=== PATIENT | female | born 1945 | race Caucasian/White ===

== ENCOUNTER 2016-03-12 11:57 | Outpatient (CLI) | payer MEDICARE, OTHER | END 2016-03-12 11:58 | disposition home or self-care (01) | DX: M19.072 Primary osteoarthritis, left ankle and foot (principal); M79.672 Pain in left foot ==

== ENCOUNTER 2016-06-15 20:54 | Outpatient (CLI) | payer MEDICARE, OTHER | END 2016-06-15 20:55 | disposition critical access hospital (66) | DX: M54.5 Low back pain (principal); S91.311A Laceration without foreign body, right foot, initial encounter; W01.198A Fall on same level from slipping, tripping and stumbling with subsequent striking against other object, initial encounter; Y92.018 Other place in single-family (private) house as the place of occurrence of the external cause | CPT/HCPCS: A0425; A0429 ==

== ENCOUNTER 2016-06-15 21:13 | Emergency (ER) | payer MEDICARE, OTHER ==
[2016-06-15] MEDS ORDERED: LIDOCAINE PATCH 5% TOP STA (23:20)
[2016-06-15] MEDS ORDERED: LIDOCAINE PATCH 5% TOP ONE (23:22)
== END 2016-06-15 23:32 | disposition home or self-care (01) ==
DX: S33.5XXA Sprain of ligaments of lumbar spine, initial encounter (principal); S90.811A Abrasion, right foot, initial encounter; W01.0XXA Fall on same level from slipping, tripping and stumbling without subsequent striking against object, initial encounter; M21.372 Foot drop, left foot; M41.86 Other forms of scoliosis, lumbar region; I10 Essential (primary) hypertension; E11.9 Type 2 diabetes mellitus without complications; Z79.4 Long term (current) use of insulin; E03.9 Hypothyroidism, unspecified; Z79.82 Long term (current) use of aspirin; Z87.891 Personal history of nicotine dependence
CPT/HCPCS: 72100; 72190; 99283; 99284; A9270

== ENCOUNTER 2016-07-04 15:03 | Outpatient (CLI) | payer MEDICARE, OTHER ==
--- NOTE | 2016-07-05 11:31 | Ultrasound Report ---
AORTA SCREEN: 07/04/2016 CLINICAL INDICATION: Hypertension. TECHNIQUE: Real-time scanning was performed with new accounts representative static images obtained. FINDINGS: The abdominal aorta is normal in caliber, measuring 2.5 cm proximally, 2.0 cm in the mid p ortion, and 1.9 cm distally. The iliacs are normal in caliber. No free fluid is present. IMPRESSION: NO EVIDENCE OF ABDOMINAL AORTIC ANEURYSM. :9 JOB #: [id number] EXT JOB #:[id number]
== END 2016-07-04 15:04 | disposition home or self-care (01) ==
LOC: DI 15:03
PROVIDERS: ATTEND Internal Medicine
DX: I10 Essential (primary) hypertension (principal)
CPT/HCPCS: 76706

== ENCOUNTER 2017-03-24 15:03 | Outpatient (CLI) | payer MEDICARE, OTHER ==
--- NOTE | 2017-03-26 13:13 | DEXA Report ---
DEXA: 03/24/2017 CLINICAL INDICATION: Postmenopausal. TECHNIQUE: Dual energy x-ray absorptiometry (DXA) was performed on a [employer] system. Regions measured are the AP spine, femoral neck, and, if needed, forearm. COMPARISON: None. In accordance with the International Society for Clinical Densitometry (ISCD) guidelines, data from previous exams may be reanalyzed using current recommendations and techniques. This is done to allow a more accurate basis for comparison with the current study. FINDINGS SPINE: N/A HIP: N/A FOREARM - The data for the left forearm radius is as follows: REGION BMD (g/cm/cm) T-SCORE Z-SCORE 1/3 RADIUS 0.875 0.0 2.0 NOTE: The 33% radius of the nondominant forearm is used for classification. IMPRESSION 1. THE WHO CLASSIFICATION BASED ON THE INTERNATIONAL REFERENCE STANDARD IS NORMAL. THE FRACTURE RISK IS NOT INCREASED. 2. LUMBAR SPINE EVALUATION NOT PERFORMED DUE TO PREVIOUS LUMBAR SURGERY. THE PATIENT COULD NOT TOLERATE POSITIONING FOR LEFT HIP EVALUATION. RECOMMENDATION: Patients with diagnosis of osteoporosis or osteopenia should have regular bone mineral density assessment. For those eligible for Medicare, routine testing is allowed once every 2 years. Testing frequency can be increased for patients who have rapidly progressing disease or for those who are receiving medical therapy to restore bone mass. COMMENT: World Health Organization (WHO) definitions for osteoporosis and osteopenia: NORMAL BMD: T-score at 1.0 or higher, fracture risk is low. OSTEOPENIA BMD: T-score between 1.0 and -2.5, fracture risk is increased. OSTEOPOROSIS BMD: T-score at 2.5 or lower, fracture risk high. National Osteoporosis Foundation recommends: 1. Obtain adequate dietary calcium (at least 1200 mg per day) and vitamin D (400 -800 international units per day). 2. Participate, as appropriate, in regular weightbearing and muscle- strengthening exercise. 3. Avoid tobacco use and reduce alcohol and caffeine intake. 4. For more detailed information see the website at www.NOF.org. TD: 03/25/2017 17:57 JOHN
== END 2017-03-24 15:04 | disposition home or self-care (01) ==
LOC: DI 15:03
PROVIDERS: ATTEND Internal Medicine
DX: M81.0 Age-related osteoporosis without current pathological fracture (principal)
CPT/HCPCS: 77080; 77081

== ENCOUNTER 2017-04-09 09:02 | Outpatient (CLI) | payer MEDICARE, OTHER ==
--- NOTE | 2017-04-09 12:52 | XRAY Report ---
THREE VIEW LEFT ANKLE: 04/09/2017 CLINICAL INDICATION: Arthralgia. FINDINGS: AP, lateral, oblique views of the left ankle demonstrate severe degenerative changes of the talonavicular joint, with bulky osteophytes dorsally. Milder degenerative changes are seen in the ankle mortise, and plantar calcaneal spurring is present. There is no evidence of acute fracture. Soft tissue swelling is present. IMPRESSION: SEVERE OSTEOARTHRITIS OF THE TALONAVICULAR JOINT, WITH BULKY OSTEOPHYTES. TD: 04/09/2017 12:51
== END 2017-04-09 09:03 | disposition home or self-care (01) ==
LOC: DI.N 09:02
PROVIDERS: ATTEND Internal Medicine
DX: M19.072 Primary osteoarthritis, left ankle and foot (principal)

== ENCOUNTER 2018-03-27 08:17 | Outpatient (CLI) | payer MEDICARE, OTHER ==
--- NOTE | 2018-03-27 11:43 | Ultrasound Report ---
Reason: UMBILICAL HERNIA WITH OBSTRUCTION Procedure Date: 03/27/2018 Accession Number: [id number] / [id number] Procedure: US - Abdomen Limited CPT Code: FULL RESULT: EXAM: ABDOMEN ULTRASOUND LIMITED EXAM DATE: 03/27/2018 09:53 AM. CLINICAL HISTORY: Umbilical hernia with obstruction. COMPARISON: Abdomen limited 12/27/2016 7:33 AM. TECHNIQUE: Real-time scanning was performed with static images obtained. FINDINGS: Limited soft tissue ultrasound of the umbilical area demonstrates an umbilical hernia with a 3 x 4 cm neck which intermittently contains bowel when the patient is seated. The hernia cannot be fully reduced during the examination. IMPRESSION: Umbilical hernia as described. RADIA
== END 2018-03-27 08:18 | disposition home or self-care (01) ==
LOC: DI 08:17
PROVIDERS: ATTEND Internal Medicine
DX: K42.0 Umbilical hernia with obstruction, without gangrene (principal)
CPT/HCPCS: 76705

== ENCOUNTER 2018-04-21 08:00 | Day surgery (SDC) | payer MEDICARE, OTHER ==
[~2018-04-21 08:00] MED LIST: BUPIVACAINE 0.5% PF 30 ML VIAL ONE
--- NOTE | 2018-04-21 08:24 | ANESTHESIA ---
Pre-Anesthesia VS, & Labs - Diagnosis Large umbilical hernia - Procedure umbilical hernia repair Height 5 ft 2 in Body Mass Index 46.7 - NPO >8 hours - Is Patient ?: No - Lab Results Lab results reviewed: Yes Home Medications and Allergies Active Medications Cefazolin Sodium 3 gm/ Sodium (Chloride) 100 mls @ 200 mls/hr IV ONCE ONE Stop: 04/21/18 09:29 Levothyroxine Sodium [Synthroid] 200 mcg PO DAILY 07/10/12 Lisinopril 20 mg PO DAILY 07/10/12 Aspirin [Rosalinda] 81 mg PO DAILY 08/24/14 Cholecalciferol (Vitamin D3) [Vitamin D] 1 cap PO DAILY 08/24/14 Furosemide 20 mg PO DAILY 08/24/14 Gabapentin 300 mg PO TID 08/24/14 Omeprazole 10 mg PO DAILY 08/24/14 Sertraline HCl [Zoloft] 50 mg PO DAILY 08/24/14 metFORMIN [Glucophage] 500 mg PO TID 08/24/14 Calcium Carbonate [Calcium] 600 mg PO QDBREAKFAST 12/16/14 Insulin Glargine,Hum.rec.anlog [Lantus] 95 unit SQ QPM 12/16/14 Ibandronate Sodium [Boniva] 150 mg PO Q30D 12/04/16 Carbidopa/Levodopa [Carbidopa-Levodopa 10-100 Tab] 1 tab ORAL TID 12/10/17 Hydrochlorothiazide 12.5 mg PO DAILY 12/10/17 Simvastatin 20 mg PO DAILY 12/10/17 diltiaZEM [Cardizem] 30 mg PO DAILY 12/10/17 Allergies/Adverse Reactions: Allergies Allergy/AdvReac Type Severity Reaction Status Date / Time No Known Drug Allergies Allergy Verified 06/15/16 21:17 Anes History & Medical History - Anesthetic History Anesthesia Complications: reports: No previous complications Family history of Anesthesia Complications: Denies Family history of Malignant Hyperthermia: Denies - Medical History Cardiovascular: reports: Hypertension, High cholesterol, Other Pulmonary: reports: Sleep apnea, CPAP use Gastrointestinal: reports: GERD Urinary: reports: None Musculoskeletal: reports: Osteoarthritis, Scoliosis, Chronic back pain, Other (hx Poilo at 6 years old) Endocrine/Autoimmune: reports: Type 2 diabetes, HyPOthyroidism Blood Disorders: reports: Anemia Skin: reports: None Smoking Status: Former smoker Other Past Medical History: polio@6 years - Surgical History General: Cholecystectomy Exam General: Alert, Oriented x3, Cooperative Dental: WNL Mouth Openin Fingerbreadth Neck Mobility: Normal Mallampati classification: II Thyromental Distance: 4-6 cm Respiratory: Lungs clear, Normal breath sounds Cardiovascular: Regular rate Neurological: Normal speech Mental/Cognitive Status: Alert/Oriented X3, Normal for patient Plan Anesthesia Type: General Consent for Procedure(s) Verified and Reviewed: Yes Code Status: Attempt Resuscitation ASA classification: 3-Severe systemic disease Is this case an emergency?: No
[2018-04-21] MEDS ORDERED: NEOSTIGMINE 1 MG/1 ML 10 ML MDV IVP ONE (08:30)
[2018-04-21] MEDS ORDERED: fentaNYL 100 MCG/2 ML VIAL IVP ONE (08:30)
[2018-04-21] MEDS ORDERED: MIDAZOLAM 2 MG/2 ML VIAL IVP ONE (08:30)
[2018-04-21] MEDS ORDERED: ROCURONIUM 50 MG/5 ML VIAL IVP ONE (08:30)
[2018-04-21] MEDS ORDERED: GLYCOPYRROLATE 1 MG/5 ML VIAL IVP ONE (08:30)
[2018-04-21] MEDS ORDERED: DEXAMETHASONE 4 MG/ML VIAL IVP ONE (08:30)
[2018-04-21] MEDS ORDERED: LIDOCAINE 2% 50 ML MDV IV ONE (08:30)
[2018-04-21] MEDS ORDERED: PROPOFOL 200 MG/20 ML VIAL IVP ONE (08:30)
[2018-04-21] MEDS ORDERED: ONDANSETRON 4 MG/2 ML VIAL IVP ONE (08:30)
[2018-04-21] MEDS ORDERED: LACTATED RINGERS 1,000 ML IV ONE ×2 (08:41→10:21)
[2018-04-21] MEDS ORDERED: ceFAZolin 3 GM in SODIUM CHLORIDE 0.9% 100ML 100 ML IV ONE (09:00)
[2018-04-21] MEDS ORDERED: BUPIVACAINE 0.5% PF 30 ML VIAL INFIL ONE ×2 (09:52→10:22)
[2018-04-21] MEDS ORDERED: HYDROcod/ACETAM 5/325 MG TABLET PO PRN (10:44)
[2018-04-21] MEDS ORDERED: HYDROmorphone 0.5 MG/0.5 ML SYRINGE IVP PRN (10:44)
[2018-04-21] MEDS ORDERED: ONDANSETRON 4 MG/2 ML VIAL IVP PRN (10:44)
--- NOTE | 2018-04-21 10:59 | OPERATIVE REPORT ---
Operative Report - General Procedure Date: 04/21/18 Planned Procedure: Incarcerated umbilical herniorrhaphy Pre-Op Diagnosis: Incarcerated umbilical hernia Procedure Performed: Incarcerated umbilical herniorrhaphy with mesh with partial omentectomy Post Op Diagnosis: Incarcerated umbilical hernia - Procedure Note Primary Surgeon: Ifeanyi Mcpherson MD Anesthesia Provider: Larry Welsh CRNA Anesthesia Technique: General ET tube, Local (30 mL of half percent Marcaine) IV Fluids (mL): 700 Estimated Blood Loss (mL): 5 Drain/Tube Type: Other (None.) Complications: None. - Other Other Information/Narrative: OPERATIVE DESCRIPTION/REPORT: After verbal and written informed consent was obtained detailing the risks of infection, bleeding requiring transfusion with its risks, nerve injury, and , and after I met with the patient confirming the surgery and the site of the surgery, the patient was brought to the operative suite and placed supine on the operating table. Great care was taken to avoid pressure points to prevent pressure necrosis or nerve injury. Monitoring devices were applied along with TEDs and pneumatic compressive stockings (to prevent DVT). The patient received preoperative antibiotics for surgical prophylaxis. Larry Welsh CRNA sedated and anesthetized the patient for the entire procedure. The patient was prepped and draped in the usual sterile manner. With the patient draped my initials were clearly visible. A "time in" then confirmed that the patient was identified with 3 identifiers (name, date and medical record number), the history and physical was in the chart, the signed consent confirming the procedure was in the chart, the patient was in the correct position, the aforementioned prophylactic measures were in place or given, we had the correct personnel and equipment to complete the procedure and that anesthesia, surgery and nursing were given an opportunuty to express any concerns. With the agreement of everyone in the room, we proceeded with the operation. A transverse umbilical incision was made and dissection was carried down to the hernia sac using a scalpel and Metzenbaum scissors. The sac was cleared of overlying adherent tissue, and the fascial defect was delineated. The sac itself was quite large and filled with what appeared to be omentum. It was clear that the defect which was a size of an Martiniquais silver dollar would not allow for easy placement of the omentum back into the abdomen. As such, I incised the hernia sac and performed a partial omentectomy using serial application of the LigaSure. The omentum was sent for pathologic evaluation. The fascia was cleared of any adherent tissue for a distance 1.5 cm from the defect. The defect was closed using a 12 cm in diameter piece of Covidien p bo Palmer mesh (Lot# [id number], Ref# [id number], use by date 2022-04-23). This mesh was selected as it was coated and allowed for the greatest overlap of mesh onto normal tissue. This was secured to the fascia using interrupted 0 PDS sutures circumferentially. The fascia was then secured over the mesh using two 0 PDS sutures in a [id number] fashion to allow for greater contact of the patient's tissues with the mesh. The patient was then given an ``innie by suturing the back of the umbilicus to the fascia using a 2-0 Vicryl. Meticulous hemostasis was obtained using Bovie electrocautery. The skin incision was approximated with a running subcuticular 4-0 Monocryl. After the prep was washed off, benzoin and steristrips were applied. A dressing was then applied. At this point a time out was performed that confirmed that all the counts were correct, the procedure that was performed, the blood loss, the IV fluids administered, and the patients condition. Having tolerated the procedure well, the patient was subsequently taken to recovery room in good and stable condition. [employer] disclaimer: This document was created in part using voice recognition technology. Because of the inherent limitations of the system ([employer]'s [employer] user manual states that the licensee understands that speech recognition is a statistical process and that recognition errors are inherent in the process), occasional same sounding word substitutions and grammatical errors do occur and persist despite proofreading. Please read this document for context.
[2018-04-21] MEDS ORDERED: HYDROcod/ACETAM 5/325 MG TABLET ONE (11:56)
[2018-04-21] MEDS ORDERED: SODIUM CHLORIDE FLUSH 0.9% 10 ML SYRINGE ONE (11:56)
[2018-04-21 12:45] VITALS: BP 129/65
== END 2018-04-21 08:01 | disposition home or self-care (01) ==
LOC: SDS 08:00
PROVIDERS: ATTEND Surgery
PROC: 0WUF0JZ Supplement Abdominal Wall with Synthetic Substitute, Open Approach (ICD-10-PCS; principal; 2018-04-21 09:15)
DX: K42.1 Umbilical hernia with gangrene (principal); I11.0 Hypertensive heart disease with heart failure; I50.9 Heart failure, unspecified; E11.9 Type 2 diabetes mellitus without complications; Z79.4 Long term (current) use of insulin; E66.01 Morbid (severe) obesity due to excess calories; Z68.41 Body mass index [BMI] 40.0-44.9, adult; G47.30 Sleep apnea, unspecified; K21.9 Gastro-esophageal reflux disease without esophagitis; E78.00 Pure hypercholesterolemia, unspecified; G89.29 Other chronic pain; M54.9 Dorsalgia, unspecified; M19.90 Unspecified osteoarthritis, unspecified site; Z72.89 Other problems related to lifestyle; E03.9 Hypothyroidism, unspecified; D64.9 Anemia, unspecified; F32.9 Major depressive disorder, single episode, unspecified; Z87.891 Personal history of nicotine dependence; Z86.12 Personal history of poliomyelitis; I49.9 Cardiac arrhythmia, unspecified
CPT/HCPCS: 49587; A9270; C1781; J7120

== ENCOUNTER 2018-06-25 07:57 | Outpatient (CLI) | payer MEDICARE, OTHER ==
--- NOTE | 2018-06-25 11:30 | Mammography Report ---
Reason: ANNUAL SCREENING Procedure Date: 06/25/2018 Accession Number: [id number] / [id number] Procedure: OBDULIO - Screening Mammo Dig Bilat CPT Code: FULL RESULT: EXAM: Screening Mammo Dig Bilat DATE: 06/25/2018 8:46 AM CLINICAL HISTORY: Routine screening TECHNIQUE: (B) - Bilateral CC and MLO views were obtained. COMPARISON: 01/10/2016, 12/20/2014, 01/11/2013 and 08/13/2011. PARENCHYMAL PATTERN: (F) - The breasts demonstrate diffuse fatty replacement bilaterally. FINDINGS: There is no significant interval change. There are no suspicious masses, calcifications, or areas of distortion. IMPRESSION: Negative examination. BI-RADS category 1. RECOMMENDATION: (ANNUAL) - Recommend routine annual screening mammography. BI-RADS CATEGORY: (1) - Negative. STANDARD QUALIFYING STATEMENTS: 1. This examination was not reviewed with the aid of Computer-Aided Detection (CAD). 2. A negative or benign imaging report should not preclude biopsy if clinically suspicious findings are present. 3. Dense breasts may obscure an underlying neoplasm. 4. This examination was reviewed without the aid of 3D breast imaging (tomosynthesis).
== END 2018-06-25 07:58 | disposition home or self-care (01) ==
LOC: DI 07:57
PROVIDERS: ATTEND Internal Medicine
DX: Z12.31 Encounter for screening mammogram for malignant neoplasm of breast (principal)
CPT/HCPCS: 77067

== ENCOUNTER 2018-09-25 12:35 | Outpatient (CLI) | payer MEDICARE, OTHER | END 2018-09-25 12:36 | disposition critical access hospital (66) | LOC: EMS 12:35 | PROVIDERS: ATTEND Surgery | DX: M25.561 Pain in right knee (principal); R22.0 Localized swelling, mass and lump, head; W18.39XA Other fall on same level, initial encounter; Y92.009 Unspecified place in unspecified non-institutional (private) residence as the place of occurrence of the external cause | CPT/HCPCS: A0425; A0429 ==

== ENCOUNTER 2018-09-25 12:55 | Emergency (ER) | payer MEDICARE, OTHER ==
--- NOTE | 2018-09-25 13:00 | ED Physician Documentation ---
PD HPI Fall - Stated complaint Stated Complaint: GLF/ HIT HEAD - History obtained from History obtained from: Patient, EMS - History of Present Illness Mechanism of injury: Lost balance (she says she has had leg weakness for months, worsening, and today, lost balance trying to back up some with walker, fell back and struck head on wall or such, then forward and struck knee. EMS called as she could not get back up. She did weight bear to transfer to cart, per EMS.) Fall distance: Standing position Timing - onset: Today Injury(ies) location: Head, Right Lower Extremity (knee) Associated symptoms: No: LOC, AMS Worsens with: Palpation Contributing factors: No: Anticoagulated, Intoxicated Review of Systems Constitutional: denies: Fever Nose: denies: Rhinorrhea / runny nose, Congestion Throat: denies: Sore throat Cardiac: denies: Chest pain / pressure, Palpitations Respiratory: denies: Dyspnea, Cough GI: denies: Abdominal Pain, Nausea, Vomiting PD PAST MEDICAL HISTORY - Past Medical History Cardiovascular: Hypertension, High cholesterol, Other Respiratory: Sleep apnea, CPAP use Endocrine/Autoimmune: Type 2 diabetes, HyPOthyroidism GI: GERD : None HEENT: Chronic hearing loss Psych: Depression Musculoskeletal: Osteoarthritis, Scoliosis, Chronic back pain, Other (hx Poilo a t 6 years old) Derm: None - Past Surgical History Past Surgical History: Yes General: Cholecystectomy - Present Medications Home Medications: Ambulatory Orders Medication Instructions Recorded Confirmed Levothyroxine Sodium [Synthroid] 200 mcg PO DAILY 07/10/12 07/15/18 Lisinopril 20 mg PO DAILY 07/10/12 07/15/18 Aspirin [Rosalinda] 81 mg PO DAILY 08/24/14 07/15/18 Cholecalciferol (Vitamin D3) 1 cap PO DAILY 08/24/14 07/15/18 [Vitamin D] Furosemide 20 mg PO DAILY 08/24/14 07/15/18 Gabapentin 300 mg PO TID 08/24/14 07/15/18 Omeprazole 10 mg PO DAILY 08/24/14 07/15/18 Sertraline HCl [Zoloft] 50 mg PO DAILY 08/24/14 07/15/18 metFORMIN [Glucophage] 500 mg PO TID 08/24/14 07/15/18 Calcium Carbonate [Calcium] 600 mg PO QDBREAKFAST 12/16/14 07/15/18 Insulin Glargine,Hum.rec.anlog 95 unit SQ QPM 12/16/14 07/15/18 [Lantus] Ibandronate Sodium [Boniva] 150 mg PO Q30D 12/04/16 07/15/18 Carbidopa/Levodopa 1 tab ORAL TID 12/10/17 07/15/18 [Carbidopa-Levodopa 10-100 Tab] Hydrochlorothiazide 6.5 mg PO DAILY 12/10/17 07/15/18 Simvastatin 20 mg PO DAILY 12/10/17 07/15/18 diltiaZEM [Cardizem] 30 mg PO DAILY 12/10/17 07/15/18 Allopurinol 100 mg PO DAILY 07/15/18 07/15/18 Magnesium Oxide [Mag Ox] 400 mg PO DAILY #10 tablet 09/25/18 dexAMETHasone [Decadron] 4 mg PO DAILY #7 tablet 09/25/18 - Allergies Allergies/Adverse Reactions: Allergies Allergy/AdvReac Type Severity Reaction Status Date / Time No Known Drug Allergies Allergy Verified 06/15/16 21:17 - Social History Does the pt smoke?: No Smoking Status: Former smoker Does the pt drink ETOH?: No - Family History Family history: reports: Non contributory - Immunizations Immunizations are current?: Yes PD ED PE NORMAL - Vitals Vital signs reviewed: Yes - General General: Alert and oriented X 3, No acute distress, Well developed/nourished - HEENT HEENT: PERRL, EOMI, Other (back of head with mild swelling and tenderness. ) - Neck Neck: Supple, no meningeal sign, No bony TTP, No adenopathy - Cardiac Cardiac: RRR, No murmur - Respiratory Respiratory: Clear bilaterally - Abdomen Abdomen: Soft, Non tender - Back Back: No spinal TTP - Derm Derm: Normal color, Warm and dry - Extremities Extremities: Other (right knee anteriorly with some tenderness without deformity. No effusion. Extension with some pain; No noted laxity with stress testing. ) - Neuro Neuro: Alert and oriented X 3, No motor deficit, No sensory deficit, Normal speech Results - Vitals Vitals: Oxygen O2 Source Room air - Labs Labs: Laboratory Tests 09/25/18 09/25/18 09/25/18 13:55 13:55 13:55 WBC 9.3 RBC 3.50 L Hgb 10.4 L Hct 33.5 L MCV 95.7 MCH 29.7 MCHC 31.0 L RDW 14.5 Plt Count 231 MPV 9.7 Neut # (Auto) 6.1 Lymph # (Auto) 2.5 [place] # (Auto) 0.5 Eos # (Auto) 0.2 Baso # (Auto) 0.1 Absolute Nucleated RBC 0.00 Nucleated RBC % 0.0 ESR 140 H Sodium 141 Potassium 3.6 Chloride 101 Carbon Dioxide 28 Anion Gap 12.0 BUN 17 Creatinine 0.7 Estimated GFR (MDRD) 82 L Glucose 140 H Calcium 9.5 Magnesium 1.4 L Total Bilirubin 0.7 AST 28 ALT 27 Alkaline Phosphatase 53 Total Creatine Kinase 85 Total Protein 7.7 Albumin 3.7 Globulin 4.0 Albumin/Globulin Ratio 0.9 L Lipase 18 L - Rads (name of study) head CT Radiology: Prelim report reviewed (no ICH), EMP read contemporaneously, See rad report right knee Radiology: Prelim report reviewed (significant arthritis; no fractures), EMP read contemporaneously, See rad report PD MEDICAL DECISION MAKING - ED course Complexity details: considered differential (having feeling of weakness in legs. Has walker. Labs showing just low Mag. Consider effect of statins. ), d/w patient, d/w family Departure - Departure Disposition: 01 Home, Self Care Clinical Impression: Leg weakness, bilateral, Hypomagnesemia Fall from slip, trip, or stumble Qualifiers: Encounter type: initial encounter Qualified Code(s): W01.0XXA - Fall on same level from slipping, tripping and stumbling without subsequent striking against object, initial encounter Knee contusion Qualifiers: Encounter type: initial encounter Laterality: right Qualified Code(s): S80.01XA - Contusion of right knee, initial encounter Head contusion Qualifiers: Encounter type: initial encounter Contusion of head detail: scalp Qualified Code(s): S00.03XA - Contusion of scalp, initial encounter Condition: Stable Record reviewed to determine appropriate education?: Yes Instructions: ED Contusion Lower Ext, ED Weakness [facility] Follow-Up: Bruna Coelho MD [Primary Care Provider] - Prescriptions: dexAMETHasone [Decadron] 4 mg PO DAILY #7 tablet Magnesium Oxide [Mag Ox] 400 mg PO DAILY #10 tablet Comments: You are on a cholesterol medicine (simvastatin) and this can be associated with leg pains and weakness in a small percentage of people. I would suggest stopping your simvastatin for a month. You can use naproxen or ibuprofen for your knee pain. There is no fracture seen so it anticipated improving over the next few days to week. Add Tylenol if needed for more pain. Your blood tests do show a low magnesium level also take a supplement as prescribed in the short-term. Your inflammation marker on your blood test is elevated suggesting the may be some more immune related type inflammation going on and that may be adding to your feeling of weakness. Follow-up with your primary care regarding further evaluation of this. Meanwhile we can add a steroid type anti-inflammatory to see if that will help generally. This may cause your blood sugars to go higher and stop the steroid if your blood sugars are too high. Discharge Date/Time: 09/25/18 15:09
[2018-09-25] MEDS ORDERED: ACETAMINOPHEN 325 MG TABLET PO STA (13:01)
--- NOTE | 2018-09-25 13:51 | XRAY Report ---
Reason: fall and struck right knee directly Procedure Date: 09/25/2018 Accession Number: [id number] / [id number] Procedure: XR - Knee 3 View RT CPT Code: FULL RESULT: EXAM: RIGHT KNEE RADIOGRAPHY EXAM DATE: 09/25/2018 01:30 PM. CLINICAL HISTORY: Fall and struck right knee directly. COMPARISON: KNEE 3 VIEW RT 01/27/2015 3:14 PM. TECHNIQUE: 3 views. FINDINGS: Bones: There is moderate chronic spurring of the lateral and patellofemoral compartment. No acute fracture. Joints: There is mild medial compartment joint space narrowing. No joint effusion. Soft Tissues: Normal. No soft tissue swelling. IMPRESSION: 1. Chronic degenerative disease of the knee with medial compartment mild joint space narrowing and chronic spurring present in the lateral and patellofemoral compartment. No fracture or joint effusion. RADIA
--- NOTE | 2018-09-25 13:54 | CT Report ---
Reason: fall and struck head, no LOC Procedure Date: 09/25/2018 Accession Number: [id number] / [id number] Procedure: CT - HEAD WO CPT Code: FULL RESULT: EXAM: HEAD WO EXAM DATE: 09/25/2018 01:41 PM CLINICAL HISTORY: Fall and struck head, no loss of consciousness. COMPARISON: None. TECHNIQUE: Multiaxial CT images were obtained from the foramen magnum to the vertex. Reformats: Sagittal and coronal. IV contrast: None. In accordance with CT protocol optimization, one or more of the following dose reduction techniques were utilized for this exam: automated exposure control, adjustment of mA and/or KV based on patient size, or use of iterative reconstructive technique. FINDINGS: Parenchyma: No acute intraparenchymal hemorrhage. No evidence of mass, midline shift. Torrez-white differentiation is distinct. Extraaxial Spaces: Basal cisterns are preserved. No subdural or epidural collections identified. Ventricles: Normal in size and position. Sinuses and Orbits: Imaged paranasal sinuses, orbits, and mastoids show no significant abnormality. Bones: No evidence of fracture or calvarial defect. Other: None. IMPRESSION: No acute intracranial abnormality. RADIA
[2018-09-25 14:08] LABS: BASOPHILS # (AUTO) 0.1 10^3/uL (0.0-0.1); BASOPHILS % (AUTO) 0.8 %; EOSINOPHILS # (AUTO) 0.2 10^3/uL (0.0-0.7); EOSINOPHILS % (AUTO) 1.6 %; HGB - HEMOGLOBIN 10.4 g/dL (12.0-16.0); LYMPHOCYTES # (AUTO) 2.5 10^3/uL (1.5-3.5); LYMPHOCYTES % (AUTO) 26.8 %; MEAN CORPUSCULAR HEMOGLOBIN 29.7 pg (27.0-31.0); MEAN CORPUSCULAR VOLUME 95.7 fL (81.0-99.0); MEAN PLATELET VOLUME 9.7 fL (7.9-10.8); MONOCYTES # (AUTO) 0.5 10^3/uL (0.0-1.0); MONOCYTES % (AUTO) 5.3 %; NEUTROPHILS # (AUTO) 6.1 10^3/uL (1.5-6.6); NEUTROPHILS % (AUTO) 65.3 %; PLT - PLATELET COUNT 231 10^3/uL (130-450); RED CELL DISTRIBUTION WIDTH 14.5 % (12.0-15.0); WHITE BLOOD COUNT 9.3 x10^3/uL (4.8-10.8)
[2018-09-25 14:22] LABS: ALBUMIN 3.7 g/dL (3.2-5.5); ALBUMIN/GLOBULIN RATIO 0.9 (1.0-2.2); BILIRUBIN,TOTAL 0.7 mg/dL (0.2-1.0); CALCIUM 9.5 mg/dL (8.5-10.3); CREATININE 0.7 mg/dL (0.4-1.0); MAGNESIUM 1.4 mg/dL (1.7-2.8); TOTAL PROTEIN 7.7 g/dL (6.7-8.2)
[2018-09-25] MEDS ORDERED: MAGNESIUM OXIDE 400 MG TABLET PO STA (14:34)
[2018-09-25 15:10] VITALS: BP 138/68
== END 2018-09-25 15:09 | disposition home or self-care (01) ==
LOC: ED 12:55
DX: R53.1 Weakness (principal); E83.42 Hypomagnesemia; S80.01XA Contusion of right knee, initial encounter; S00.03XA Contusion of scalp, initial encounter; W18.39XA Other fall on same level, initial encounter; Y93.89 Activity, other specified; I10 Essential (primary) hypertension; E11.9 Type 2 diabetes mellitus without complications; Z87.891 Personal history of nicotine dependence; Z79.4 Long term (current) use of insulin
CPT/HCPCS: 36415; 70450; 73562; 80053; 82550; 83690; 83735; 85025; 85651; 99284; A9270

== ENCOUNTER 2018-12-01 21:59 | Outpatient (CLI) | payer MEDICARE, OTHER | END 2018-12-01 22:00 | disposition critical access hospital (66) | LOC: EMS 21:59 | PROVIDERS: ATTEND Surgery | DX: R53.1 Weakness (principal); R05 Cough; R06.02 Shortness of breath; R50.9 Fever, unspecified | CPT/HCPCS: A0425; A0429 ==

== ENCOUNTER 2018-12-01 22:18 | Inpatient (IN) | payer MEDICARE, OTHER ==
[2018-12-01] MEDS ORDERED: SODIUM CHLORIDE 0.9% 1,000 ML IV ONE (22:33)
[2018-12-01] MEDS ORDERED: ACETAMINOPHEN 325 MG TABLET PO STA (22:33)
--- NOTE | 2018-12-01 22:34 | ED Physician Documentation ---
History of Present Illness - Stated complaint Stated Complaint: WEAKNESS/SOA - Chief complaint Chief Complaint: Resp - History obtained from History obtained from: Patient - History of Present Illness Timing: Today - Additonal information Additional information: Is a 73-year-old woman who presents with complaints that she does not know what happened but she could not stand up this afternoon. She was just too weak. She fell but denies any injury. She feels short of breath but has not been coughing. Denies history of asthma or emphysema. She denies chest pain or feeling dizzy. She has no abdominal pain, nausea or vomiting. She denies diarrhea today. She did feel feverish earlier today. She is diabetic and her blood sugar was 113 this morning. She did not take any insulin today because she just felt like she can do anything at home. She denies burning with urination. She is noted some increasing leg edema lately. She reports a history of CHF. Denies use of home O2. Review of Systems Constitutional: reports: Fever Eyes: reports: Other (Wears glasses) Nose: denies: Congestion Throat: reports: Sore throat Cardiac: reports: Pedal edema. denies: Chest pain / pressure, Palpitations Respiratory: reports: Dyspnea. denies: Cough GI: denies: Abdominal Pain, Nausea, Vomiting, Diarrhea : denies: Dysuria, Frequency Skin: reports: Other (Denies any wounds). denies: Lesions Musculoskeletal: reports: Other (Denies injury in the fall) Neurologic: reports: Generalized weakness. denies: Syncope Endocrine: reports: Other (Diabetic and her blood sugar read high per the ambulance. 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 : None HEENT: Chronic hearing loss Psych: Depression Musculoskeletal: Osteoarthritis, Scoliosis, Chronic back pain, Other Derm: None - Past Surgical History Past Surgical History: Yes General: Cholecystectomy - Present Medications Home Medications: Ambulatory Orders Medication Instructions Recorded Confirmed Levothyroxine Sodium [Synthroid] 200 mcg PO DAILY 07/10/12 12/01/18 Lisinopril 20 mg PO DAILY 07/10/12 12/01/18 Aspirin [Rosalinda] 81 mg PO DAILY 08/24/14 12/01/18 Cholecalciferol (Vitamin D3) 1 cap PO DAILY 08/24/14 12/01/18 [Vitamin D] Furosemide 20 mg PO DAILY 08/24/14 12/01/18 Gabapentin 600 mg PO BID 08/24/14 12/01/18 Omeprazole 10 mg PO DAILY 08/24/14 12/01/18 Sertraline HCl [Zoloft] 125 mg PO DAILY 08/24/14 12/01/18 metFORMIN [Glucophage] 500 mg PO BID 08/24/14 12/01/18 Calcium Carbonate [Calcium] 600 mg PO QDBREAKFAST 12/16/14 12/01/18 Insulin Glargine,Hum.rec.anlog 95 unit SQ QPM 12/16/14 12/01/18 [Lantus] Ibandronate Sodium [Boniva] 150 mg PO Q30D 12/04/16 12/01/18 Hydrochlorothiazide 6.5 mg PO DAILY 12/10/17 12/01/18 diltiaZEM [Cardizem] 30 mg PO BID 12/10/17 12/01/18 Allopurinol 100 mg PO DAILY 07/15/18 12/01/18 Acetaminophen [Tylenol Extra 500 mg PO PRN PRN 11/09/18 12/01/18 Strength] Ferrous Sulfate 325 mg PO BID 11/09/18 12/01/18 Insulin Regular Human [NovoLIN R] 0 - 30 units SQ TID 11/09/18 12/01/18 - Allergies Allergies/Adverse Reactions: Allergies Allergy/AdvReac Type Severity Reaction Status Date / Time No Known Drug Allergies Allergy Verified 12/01/18 22:26 - Social History Does the pt smoke?: No Smoking Status: Never smoker Does the pt drink ETOH?: No Does the pt have substance abuse?: No - Immunizations Immunizations are current?: Yes - POLST Patient has POLST: No PD ED PE NORMAL - Vitals Vital signs reviewed: Yes - General General: Alert and oriented X 3, Other (Obese 73-year-old woman who appears tachypneic and is having a lot of difficulty answering any questions she just shakes her head to most of the questions) - HEENT HEENT: Atraumatic, PERRL, Moist mucous membranes, Other (Tonsils are enlarged and erythematous just slight white patches bilaterally) - Neck Neck: No adenopathy - Cardiac Cardiac: No murmur, Strong equal pulses, Other (Tachycardia) - Respiratory Respiratory: Clear bilaterally, Other (Tachypneic) - Abdomen Abdomen: Normal bowel sounds, Soft, Other (Morbidly obese) - Derm Derm: Normal color, Warm and dry, No rash, Other (No wounds noted on her feet) - Extremities Extremities: No tenderness to palpate, Other (Trace pretibial edema bilaterally) - Neuro Neuro: Alert and oriented X 3, Other (No gross neurological deficits) Results - Vitals Vitals: Vital Signs - 24 hr 12/01/18 12/01/18 12/02/18 22:20 22:51 00:00 Temperature 38.3 C H Heart Rate 112 H 104 H 94 Respiratory 24 28 H 21 Rate Blood Pressure 151/84 H 145/72 H 133/66 H O2 Saturation 93 91 L 92 Oxygen O2 Source Nasal cannula Oxygen Flow Rate 2 - EKG (time done) 2249 Rate: Rate (enter#) (102) Rhythm: Sinus tachycardia, NSR Intervals: Normal AR QRS: Poor R wave progression Ischemia: Normal ST segments, Q waves (III) - Labs Labs: Laboratory Tests 12/01/18 12/01/18 12/01/18 22:44 22:44 22:45 WBC 16.9 H RBC 3.92 L Hgb 11.7 L Hct 36.6 L MCV 93.4 MCH 29.8 MCHC 32.0 RDW 15.1 H Plt Count 238 MPV 9.3 Neut # (Auto) 14.7 H Lymph # (Auto) 1.2 L Mcleod # (Auto) 0.8 Eos # (Auto) 0.0 Baso # (Auto) 0.1 Absolute Nucleated RBC 0.00 Nucleated RBC % 0.0 VBG pH VBG pCO2 VBG pO2 VBG HCO3 VBG Total CO2 VBG O2 Saturation VBG Base Excess Sodium 138 Potassium 3.9 Chloride 101 Carbon Dioxide 24 Anion Gap 13.0 BUN 14 Creatinine 0.7 Estimated GFR (MDRD) 82 L Glucose 212 H Lactic Acid Calcium 9.1 Total Bilirubin 1.2 H AST 35 ALT 34 Alkaline Phosphatase 59 Total Protein 8.3 H Albumin 4.1 Globulin 4.2 Albumin/Globulin Ratio 1.0 Lipase 21 L Urine Color YELLOW Urine Clarity HAZY Urine pH 7.0 Ur Specific Romulus 1.015 Urine Protein TRACE Urine Glucose (UA) NEGATIVE Urine Ketones NEGATIVE Urine Occult Blood TRACE-LYSE Urine Nitrite NEGATIVE Urine Bilirubin NEGATIVE Urine Urobilinogen 0.2 (NORMAL) Ur Leukocyte Esterase TRACE H Urine RBC 0-5 Urine WBC 11-25 H Ur Squamous Epith Cells FEW Squamous Urine Bacteria Many H Ur Microscopic Review INDICATED Urine Culture Comments INDICATED Serum Ketones NEGATIVE Group A Strep Rapid 12/01/18 12/01/18 12/01/18 22:45 22:54 22:54 WBC RBC Hgb Hct MCV MCH MCHC RDW Plt Count MPV Neut # (Auto) Lymph # (Auto) Mcleod # (Auto) Eos # (Auto) Baso # (Auto) Absolute Nucleated RBC Nucleated RBC % VBG pH 7.426 H VBG pCO2 34.7 L VBG pO2 71.2 H VBG HCO3 22.3 L VBG Total CO2 23.4 L VBG O2 Saturation 94.8 H VBG Base Excess -1.5 Sodium Potassium Chloride Carbon Dioxide Anion Gap BUN Creatinine Estimated GFR (MDRD) Glucose Lactic Acid 1.3 Calcium Total Bilirubin AST ALT Alkaline Phosphatase Total Protein Albumin Globulin Albumin/Globulin Ratio Lipase Urine Color Urine Clarity Urine pH Ur Specific Romulus Urine Protein Urine Glucose (UA) Urine Ketones Urine Occult Blood Urine Nitrite Urine Bilirubin Urine Urobilinogen Ur Leukocyte Esterase Urine RBC Urine WBC Ur Squamous Epith Cells Urine Bacteria Ur Microscopic Review Urine Culture Comments Serum Ketones Group A Strep Rapid Negative - Rads (name of study) cxr Radiology: EMP read contemporaneously (Heart is enlarged. No definite infiltrate.), See rad report PD MEDICAL DECISION MAKING - ED course Complexity details: reviewed results, re-evaluated patient, d/w patient, d/w family, d/w physician practice consultant ED course: Patient was tachycardic. She received a liter of fluids white blood cell count was elevated at 16.9. CMP was normal except for glucose of 212 and she had negative ketones. She did have a urinary tract infection with 11-25 white blood cells and many bacteria seen. Chest x-ray does not show a definitive pneumonia however she is hypoxic on a couple liters of O2 by nasal cannula. She was given Rocephin IV. Lactic acid was normal and blood cultures were obtained and the initial evaluation and are pending. Discussed case with Dr. Jiménze the hospitalist and he is agreed to accept the patient for admission. Departure - Departure Disposition: [facility] DC/Xfer Clinical Impression: Weakness UTI (urinary tract infection) Qualifiers: Urinary tract infection type: site unspecified Hematuria presence: without hematuria Qualified Code(s): N39.0 - Urinary tract infection, site not specified Discharge Date/Time: 12/02/18 00:50
[2018-12-01 22:55] LABS: BILIRUBIN,URINE NEGATIVE (NEGATIVE); GLUCOSE, URINE (UA) NEGATIVE (NEGATIVE); KETONES,URINE (UA) NEGATIVE (NEGATIVE); LEUKOCYTE ESTERASE, URINE TRACE (NEGATIVE); NITRITE,URINE NEGATIVE (NEGATIVE); OCCULT BLOOD,URINE TRACE-LYSE (NEGATIVE); PROTEIN,URINE TRACE mg/dL (NEGATIVE); UROBILINOGEN,URINE 0.2 (NORMAL) E.U./dL (NORMAL)
[2018-12-01 22:56] LABS: CLARITY,URINE HAZY (CLEAR)
[2018-12-01 23:01] LABS: BASOPHILS # (AUTO) 0.1 10^3/uL (0.0-0.1); BASOPHILS % (AUTO) 0.7 %; EOSINOPHILS % (AUTO) 0.2 %; HGB - HEMOGLOBIN 11.7 g/dL (12.0-16.0); LYMPHOCYTES # (AUTO) 1.2 10^3/uL (1.5-3.5); MEAN CORPUSCULAR HEMOGLOBIN 29.8 pg (27.0-31.0); MEAN CORPUSCULAR VOLUME 93.4 fL (81.0-99.0); MEAN PLATELET VOLUME 9.3 fL (7.9-10.8); MONOCYTES # (AUTO) 0.8 10^3/uL (0.0-1.0); MONOCYTES % (AUTO) 4.9 %; NEUTROPHILS # (AUTO) 14.7 10^3/uL (1.5-6.6); NEUTROPHILS % (AUTO) 86.6 %; PLT - PLATELET COUNT 238 10^3/uL (130-450); RED BLOOD COUNT 3.92 10^6/uL (4.20-5.40); RED CELL DISTRIBUTION WIDTH 15.1 % (12.0-15.0); WHITE BLOOD COUNT 16.9 x10^3/uL (4.8-10.8)
[2018-12-01 23:02] LABS: VBG BASE EXCESS -1.5 mmol/L (-2 - +2); VBG PCO2 34.7 mmHg (41-51); VBG PH 7.426 (7.31-7.41); VBG PO2 71.2 mmHg (25-47); VBG TOTAL CO2 23.4 mmol/L (24-29)
[2018-12-01 23:03] LABS: RBC,URINE 0-5 /HPF (0-5)
[2018-12-01 23:04] LABS: BACTERIA,URINE Many /HPF (None Seen); SQUAMOUS EPITHELIAL CELL,UR FEW Squamous (<= Few)
[2018-12-01 23:09] LABS: KETONES, SERUM (ACETEST) NEGATIVE (NEGATIVE)
[2018-12-01] MEDS ORDERED: cefTRIAXone 1 GM in SODIUM CHLORIDE 0.9% MINIBAG 100 ML IV STA (23:09)
--- NOTE | 2018-12-01 23:12 | XRAY Report ---
Reason: chest pain Procedure Date: 12/01/2018 Accession Number: [id number] / [id number] Procedure: XR - Chest 1 View X-Ray CPT Code: 82720 FULL RESULT: EXAM: CHEST RADIOGRAPHY EXAM DATE: 12/01/2018 10:48 PM. CLINICAL HISTORY: Chest pain. COMPARISON: None. TECHNIQUE: 1 view. FINDINGS: Lungs/Pleura: No consolidation, pleural effusion or pneumothorax. Mediastinum: Cardiomegaly versus magnified heart. IMPRESSION: Cardiomegaly versus magnified heart. No acute pulmonary findings are seen. RADIA
[2018-12-01 23:16] LABS: ALBUMIN 4.1 g/dL (3.2-5.5); ALKALINE PHOSPHATASE 59 IU/L (42-121); ALT ALANINE AMINOTRANSFERASE 34 IU/L (10-60); AST ASPARTATE AMINOTRANSFERASE 35 IU/L (10-42); BILIRUBIN,TOTAL 1.2 mg/dL (0.2-1.0); BUN - BLOOD UREA NITROGEN 14 mg/dL (6-20); CALCIUM 9.1 mg/dL (8.5-10.3); CARBON DIOXIDE - CO2 24 mmol/L (21-32); CHLORIDE 101 mmol/L (101-111); CREATININE 0.7 mg/dL (0.4-1.0); GFR - MDRD 82 (>89); GLUCOSE 212 mg/dL (70-100); LIPASE 21 U/L (22-51); SODIUM 138 mmol/L (135-145); TOTAL PROTEIN 8.3 g/dL (6.7-8.2)
[2018-12-02] MEDS ORDERED: ONDANSETRON ODT 4 MG TABLET TL PRN (00:22)
[2018-12-02] MEDS ORDERED: cefTRIAXone 1 GM in SODIUM CHLORIDE 0.9% MINIBAG 100 ML IV STA (00:27)
--- NOTE | 2018-12-02 00:36 | HISTORY & PHYSICAL EXAMINATION ---
Chief Complaint - Chief Complaint Chief Complaint: weakness History of Present Illness - Admitted From Admitted From:: [facility] ED - History Obtained From Records Reviewed: yes History obtained from: patient - History of Present Illness HPI Comment/Other: Patient seen on 12/02/18 around 01:00am Patient is a 73 y/o female who presented to the ED via EMS with complain of weakness. It was so significant that she was unable to get out of bed. As a result she did not take her insulin today. She reports having chills 2 days ago. She denied chest pain or abdominal pain. In the ED she was found to be tachycardic with a pulse in the 120's and mildly dyspneic. She had a temp of 38.3C and a WBC of 16. A UA done was suggestive on a UTI. As a result she is being admitted for further treatment. 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 She denies alcohol, tobacco products or illicit drug use. She gets around using a walker. - POLST Patient has POLST: No POLST Status: Full Code Meds/Allgy - Home Medications Home Medications: Ambulatory Orders Medication Instructions Recorded Confirmed Levothyroxine Sodium [Synthroid] 200 mcg PO DAILY 07/10/12 12/01/18 Lisinopril 20 mg PO DAILY 07/10/12 12/01/18 Aspirin [Rosalinda] 81 mg PO DAILY 08/24/14 12/01/18 Cholecalciferol (Vitamin D3) 1 cap PO DAILY 08/24/14 12/01/18 [Vitamin D] Furosemide 20 mg PO DAILY 08/24/14 12/01/18 Gabapentin 600 mg PO BID 08/24/14 12/01/18 Omeprazole 10 mg PO DAILY 08/24/14 12/01/18 Sertraline HCl [Zoloft] 125 mg PO DAILY 08/24/14 12/01/18 metFORMIN [Glucophage] 500 mg PO BID 08/24/14 12/01/18 Calcium Carbonate [Calcium] 600 mg PO QDBREAKFAST 12/16/14 12/01/18 Insulin Glargine,Hum.rec.anlog 95 unit SQ QPM 12/16/14 12/01/18 [Lantus] Ibandronate Sodium [Boniva] 150 mg PO Q30D 12/04/16 12/01/18 Hydrochlorothiazide 6.5 mg PO DAILY 12/10/17 12/01/18 diltiaZEM [Cardizem] 30 mg PO BID 12/10/17 12/01/18 Allopurinol 100 mg PO DAILY 07/15/18 12/01/18 Acetaminophen [Tylenol Extra 500 mg PO PRN PRN 11/09/18 12/01/18 Strength] Ferrous Sulfate 325 mg PO BID 11/09/18 12/01/18 Insulin Regular Human [NovoLIN R] 0 - 30 units SQ TID 11/09/18 12/01/18 - Allergies Allergies/Adverse Reactions: Allergies Allergy/AdvReac Type Severity Reaction Status Date / Time No Known Drug Allergies Allergy Verified 12/01/18 22:26 Review of Systems - Constitutional Constitutional: reports: Fatigue, Fever, Weakness - Eyes Eyes: denies: Blurred vision, Vision loss, Dipolpia - Ears, Nose & Throat Ears, Nose & Throat: reports: Sore throat. denies: Nasal pain, Nasal discharge - Cardiovascular Cariovascular: reports: Palpitations. denies: Chest pain, Edema, Syncope, Exertional dyspnea - Respiratory Respiratory: reports: SOB at rest. denies: Cough, Sputum production, Wheezing - Gastrointestinal Gastrointestinal: reports: Reflux/heartburn. denies: Abdominal pain, Abdominal distention, Constipation, Diarrhea, Nausea, Vomiting - Genitourinary Genitourinary: denies: Dysuria, Frequency, Urgency, Hematuria - Musculoskeletal Musculoskeletal: denies: Muscle pain, Back pain - Integumentary Integumentary: denies: Rash, Pruritis, Lesions - Neurological Neurological: reports: General weakness. denies: Focal weakness, Headache, Dizziness - Psychiatric Psychiatric: denies: Depression, Anxiety - Endocrine Endocrine: denies: Polyuria, Polydypsia - Hematologic/Lymphatic Hematologic/Lymphatic: denies: Anemia, Bruising Prior Level of Functionality: She lives at home with her and daughter. She denies alcohol, tobacco products or illicit drug use. She gets around using a walker. Exam - Vital Signs Vital Signs: Vital Signs x48h Temp Pulse Resp BP Pulse Ox 12/02/18 00:00 94 21 133/66 H 92 12/01/18 22:51 104 H 28 H 145/72 H 91 L 12/01/18 22:20 38.3 C H 112 H 24 151/84 H 93 - Physical Exam General Appearance: positive: Alert, Mild distress. negative: Lethargic Eyes Bilateral: positive: Normal inspection, PERRL, EOMI ENT: positive: ENT inspection nml, Dry mucous membranes Neck: positive: No JVD, Trachea midline Respiratory: positive: Chest non-tender, No respiratory distress, Breath sounds nml. negative: Wheezes, Rales, Rhonchi Cardiovascular: positive: No murmur, Tachycardia Abdomen: positive: Non-tender, Nml bowel sounds, No distention. negative: Guarding, Rebound Back: positive: Nml inspection Skin: positive: Color nml, No rash, Warm, Dry Extremities: positive: Non-tender, Full ROM, Nml appearance, No pedal edema Neurologic/Psychiatric: positive: Oriented x3, CN's nml (2-12), Motor nml, Sensation nml, Mood/affect nml Conclusion/Plan - Problem List (1) UTI (urinary tract infection) Conclusion/Plan: Blood and urine cultures pending Patient started on rocephin 2g IV q24hrs Tylenol for fever. IV hydration with normal saline. Hold lasix while hydrating patient Qualifiers: Urinary tract infection type: site unspecified Hematuria presence: without hematuria Qualified Code(s): N39.0 - Urinary tract infection, site not specified (2) Diabetes mellitus Conclusion/Plan: Poor contrul. Patient on lantus 50 units subq bid. Hold metformin. High dose sliding scale insulin ordered. Accu cheks. HgA1C pending Qualifiers: Diabetes mellitus complication detail: with unspecified neuropathy (3) Hypothyroidism Conclusion/Plan: Resume synthroid when verified (4) Hypertension Conclusion/Plan: On lisinopril and diltiazem. Will continue Will hold lasix while hydrating patient (5) GERD (gastroesophageal reflux disease) Conclusion/Plan: Protonix ordered (6) Osteoporosis Conclusion/Plan: On Vit D and calcium supplements daily On boniva once a month (7) Depression Conclusion/Plan: On sertraline (8) Chronic back pain Conclusion/Plan: Likely confounded by body habitus (9) Obstructive sleep apnea Conclusion/Plan: Patient has been ordered a CPAP in the past but stopped using it. (10) Nori rash of groin Conclusion/Plan: Nystatin powder bid ordered - Lab Results Fish Bones: 12/01/18 22:44 12/01/18 22:44 Core Measures - Anticipated LOS I expect patient to be DC'd or transferred within 96 hours.: Yes - DVT/VTE - Prophylaxis VTE/DVT Device ordered at admit?: Yes VTE/DVT Prophylaxis med ordered at admit?: Yes
[2018-12-02] MEDS ORDERED: SODIUM CHLORIDE 0.9% 1,000 ML IV SCH (01:00)
[2018-12-02] MEDS: SODIUM CHLORIDE FLUSH 0.9% 10 ML SYRINGE IVP SCH ×3 (01:20→17:10)
[2018-12-02] MEDS: NYSTATIN POWDER 15 GM TOP SCH ×3 (03:44→21:25)
[2018-12-02 05:36] LABS: BASOPHILS # (AUTO) 0.1 10^3/uL (0.0-0.1); BASOPHILS % (AUTO) 0.7 %; EOSINOPHILS % (AUTO) 0.2 %; LYMPHOCYTES # (AUTO) 1.3 10^3/uL (1.5-3.5); LYMPHOCYTES % (AUTO) 8.9 %; MEAN CORPUSCULAR HGB CONC 30.8 g/dL (32.0-36.0); MEAN CORPUSCULAR VOLUME 94.2 fL (81.0-99.0); MEAN PLATELET VOLUME 9.3 fL (7.9-10.8); MONOCYTES # (AUTO) 0.6 10^3/uL (0.0-1.0); MONOCYTES % (AUTO) 4.2 %; NEUTROPHILS # (AUTO) 12.7 10^3/uL (1.5-6.6); NEUTROPHILS % (AUTO) 85.5 %; PLT - PLATELET COUNT 219 10^3/uL (130-450); RED BLOOD COUNT 3.79 10^6/uL (4.20-5.40); RED CELL DISTRIBUTION WIDTH 15.2 % (12.0-15.0); WHITE BLOOD COUNT 14.9 x10^3/uL (4.8-10.8)
[2018-12-02 05:46] LABS: CALCIUM 8.4 mg/dL (8.5-10.3); CREATININE 0.7 mg/dL (0.4-1.0)
[2018-12-02 05:54] LABS: HB2 TOTAL 11.8 g/dL; HEMOGLOBIN A1C 0.58 g/dL; HEMOGLOBIN A1C % 6.6 % (4.6-6.2)
[2018-12-02] MEDS ORDERED: FUROSEMIDE 20 MG/2 ML VIAL IVP STA ×2 (05:55→06:27)
[2018-12-02] MEDS: SODIUM CHLORIDE FLUSH 0.9% 10 ML SYRINGE IVP PRN ×2 (06:06→21:26)
[2018-12-02] MEDS ORDERED: LORazepam 2 MG/ML VIAL IVP STA (06:26)
[2018-12-02] MEDS ORDERED: NITROGLYCERIN SL 0.4 MG TABLET SL STA (06:31)
--- NOTE | 2018-12-02 06:53 | XRAY Report ---
Reason: dyspnea, crackles Procedure Date: 12/02/2018 Accession Number: [id number] / [id number] Procedure: XR - Chest 1 View X-Ray CPT Code: 44825 FULL RESULT: EXAM: CHEST RADIOGRAPHY EXAM DATE: 12/02/2018 06:32 AM. CLINICAL HISTORY: Dyspnea, crackles. COMPARISON: CHEST 1 VIEW 12/01/2018 10:33 PM. TECHNIQUE: 1 view. FINDINGS: Lungs/Pleura: Pulmonary vascular congestion and interstitial edema. No effusion or pneumothorax. Mediastinum: Cardiomegaly. Other: None. IMPRESSION: Cardiomegaly, with pulmonary vascular congestion and interstitial edema, compatible with congestive failure. RADIA
[2018-12-02 07:47] LABS: ABG PH 7.39 (7.35-7.45)
[2018-12-02 07:48] LABS: ABG HCO3 20.2 mmol/L (22.0-26.0); ABG OXYGEN SATURATION 98 % (94-98); ABG PCO2 34 mmHg (34-45); ABG PO2 131 mmHg (80-100); ABG TCO2 21.2 MMOL/L (21.0-29.0); ALLEN TEST POSITIVE
[2018-12-02] MEDS ORDERED: INSULIN ASPART 300 UNIT/3 ML PEN SUBQ SCH (08:00)
[2018-12-02] MEDS ORDERED: SODIUM CHLORIDE 0.9% 500 ML IV PRN (08:00)
[2018-12-02] MEDS: INSULIN ASPART 300 UNIT/3 ML PEN SUBQ SCH ×4 (08:17→21:22)
[2018-12-02] MEDS: POLYETHYLENE GLYCOL 3350 17 GM PACKET PO SCH (08:19)
--- NOTE | 2018-12-02 08:26 | PROVIDER PROGRESS NOTE ---
Rope Coiling Machine Operator Note - Rope Coiling Machine Operator Note Rope Coiling Machine Operator Note: I was notified around 05:30am on 12/02/18 that the patient was having respiratory distress. At bedside, crackles were readily appreciable. Her oxygen saturation was as low as 79% on a the nasal canula. She was tachycardic with a rate of 130's. She denied chest pain but was diaphoretic. The whole time she was awake and able to communicate. Her IV fluids were discontinued. CXR showed significant pulmonary edema. She was given a total of 40mg IV of lasix. 0.5mg of nitroglycerin sublingual, placed on a bipap and transferred to the ICU Patient appeared much more comfortable shortly after transfer. ABG was unremarkable except for hyperoxemia. The FiO2 was decreased. EKG showed tachycardia. 2D echo, bnp and Troponin are pending.
[2018-12-02] MEDS ORDERED: INSULIN GLARGINE 300 UNIT/3 ML PEN SUBQ SCH (09:00)
[2018-12-02] MEDS ORDERED: ENOXAPARIN 40 MG/0.4 ML SYRINGE SUBQ SCH (09:00)
[2018-12-02] MEDS: PANTOPRAZOLE 40 MG TABLET PO SCH (09:00)
[2018-12-02] MEDS: FUROSEMIDE 20 MG/2 ML VIAL IVP SCH (13:53)
[2018-12-02] MEDS ORDERED: METOPROLOL SUCCINATE 25 MG TABLET PO SCH (15:28)
[2018-12-02] MEDS: SPIRONOLACTONE 25 MG TABLET PO SCH (16:28)
[2018-12-02] MEDS: ACETAMINOPHEN 325 MG TABLET PO PRN (17:07)
--- NOTE | 2018-12-02 17:53 | PROVIDER PROGRESS NOTE ---
Hospitalist Cross-cover Note - Cross-Cover Note Cross-Cover Note: Today the patient was tried on O2 per n.c. and tolerated it for several hours at a time. She was able to talk to me about her Hx: She described "left sided heart trouble" but did not know a Dx, an EF, and denied ever having a coronary angio. 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 I asked her and he knew none of her Hx either. I asked for and received records from her PCP, Dr Coelho's office, and reviewed them. She was just seen on 11/30/18. There is no Dx of CHF or Cardiomyopathy. BP 120-130/70-90, HR 110-125, RR 20-25, O2 sats are adequate BIPAP Oral mucosa moist Neck obese and cannot eval JVD Chest diminished breath sounds at bases Heart tachycardic Abdomen obese with a pannus Legs have 4+ edema to the hips Echo done this afternoon shows: severely depressed LVEF of <20% with global hypokinesis, significant MR and TR, no pericardial effusion, large RV with depressed RV function as well, bi-atrial enlargement. Troponins are risin>> 433>> 518 EKG shows Sinus tach or SVT, and NSSTT changes CXR when she was brought to the ICU: pulmonary edema and pleural effusions Impresion/Diagnoses: Flash Pulmomary edema Acute NSTEMI Anasarca Severe systolic LV heart failure (?acute) Tachycardia UTI DM Plan: continue Rocephin await cultures stop iv fluids, even TKOs IV Lasix bid Junior for accurate I's and O's Daily weights Follow troponin til it peaks Full liquid diet, since she cannot eat with a BIPAP on decrease Lantus Insulin since not eating ss Insulin coverage for fingerstick glu results BIPAP with supplemental oxygen and titrate down if possible Start B-blockers for CHF and for rate control and for CO If BP drops, use Dig for rate control Add Lovenox (therapeutic dose) for 48 hours continue baby ASA + add Plavix Spironolactone Morphine prn dyspnea, not Ativan Lipitor ABGs as needed continue Allopurinol, Gabapentin and Zoloft check TSH, since her Synthroid dose may be too high and adding to the tachycardia transfer for cor angio when hemodynamically more stable and not in respiratory distress or inubated CRITICAL CARE TIME SPENT: 45 min
[2018-12-02] MEDS ORDERED: METOPROLOL 5 MG/5 ML VIAL IVP SCH (18:00)
[2018-12-02] MEDS ORDERED: MORPHINE 2 MG/ML CARPUJECT IVP PRN (18:08)
[2018-12-02] MEDS: ENOXAPARIN 100 MG/ML SYRINGE SUBQ SCH (18:32)
[2018-12-02] MEDS: CLOPIDOGREL 75 MG TABLET PO SCH (18:35)
[2018-12-02] MEDS: INSULIN GLARGINE 300 UNIT/3 ML PEN SUBQ SCH (21:22)
[2018-12-02] MEDS: ATORVASTATIN 40 MG TABLET PO SCH (21:25)
[2018-12-02] MEDS: GABAPENTIN 300 MG CAPSULE PO SCH (21:25)
[2018-12-02] MEDS: cefTRIAXone 2 GM in SODIUM CHLORIDE 0.9% MINIBAG 100 ML IV SCH (21:25)
[2018-12-02] MEDS: METOPROLOL SUCCINATE 25 MG TABLET PO SCH (21:26)
[2018-12-03] MEDS: SODIUM CHLORIDE FLUSH 0.9% 10 ML SYRINGE IVP SCH ×4 (01:15→21:14)
[2018-12-03 05:08] LABS: BASOPHILS # (AUTO) 0.1 10^3/uL (0.0-0.1); BASOPHILS % (AUTO) 0.6 %; EOSINOPHILS # (AUTO) 0.1 10^3/uL (0.0-0.7); EOSINOPHILS % (AUTO) 0.6 %; LYMPHOCYTES # (AUTO) 1.8 10^3/uL (1.5-3.5); LYMPHOCYTES % (AUTO) 12.4 %; MEAN CORPUSCULAR HEMOGLOBIN 29.4 pg (27.0-31.0); MEAN CORPUSCULAR VOLUME 94.9 fL (81.0-99.0); MEAN PLATELET VOLUME 10.2 fL (7.9-10.8); MONOCYTES # (AUTO) 0.8 10^3/uL (0.0-1.0); MONOCYTES % (AUTO) 5.8 %; NEUTROPHILS # (AUTO) 11.5 10^3/uL (1.5-6.6); PLT - PLATELET COUNT 224 10^3/uL (130-450); RED BLOOD COUNT 3.74 10^6/uL (4.20-5.40); RED CELL DISTRIBUTION WIDTH 15.3 % (12.0-15.0); WHITE BLOOD COUNT 14.4 x10^3/uL (4.8-10.8)
[2018-12-03 05:15] LABS: CALCIUM 8.3 mg/dL (8.5-10.3); CREATININE 0.8 mg/dL (0.4-1.0)
[2018-12-03] MEDS: SODIUM CHLORIDE FLUSH 0.9% 10 ML SYRINGE IVP PRN ×2 (05:26→13:36)
[2018-12-03] MEDS: FUROSEMIDE 20 MG/2 ML VIAL IVP SCH ×2 (05:26→13:36)
[2018-12-03 05:29] LABS: CHOL/HDL RATIO 6.3 (<4.4); CHOLESTEROL 170 mg/dL; HDL CHOLESTEROL 27 mg/dL; LDL CHOLESTEROL,CALCULATED 109 mg/dL; VLDL CHOLESTEROL 34 mg/dL
[2018-12-03] MEDS: PANTOPRAZOLE 40 MG TABLET PO SCH (06:26)
[2018-12-03] MEDS: ENOXAPARIN 100 MG/ML SYRINGE SUBQ SCH ×2 (06:26→19:51)
[2018-12-03] MEDS ORDERED: LEVOTHYROXINE 100 MCG TABLET PO SCH (07:00)
[2018-12-03] MEDS ORDERED: POTASSIUM CHLORIDE 20 MEQ TABLET PO SCH (07:44)
[2018-12-03] MEDS: INSULIN ASPART 300 UNIT/3 ML PEN SUBQ SCH ×4 (08:13→21:22)
[2018-12-03] MEDS: ALLOPURINOL 100 MG TABLET PO SCH (08:13)
[2018-12-03] MEDS: ASPIRIN CHEW 81 MG TABLET PO SCH (08:13)
[2018-12-03] MEDS: INSULIN GLARGINE 300 UNIT/3 ML PEN SUBQ SCH ×2 (08:14→21:19)
[2018-12-03] MEDS: CLOPIDOGREL 75 MG TABLET PO SCH (08:14)
[2018-12-03] MEDS: GABAPENTIN 300 MG CAPSULE PO SCH ×2 (08:14→21:17)
[2018-12-03] MEDS: CHOLECALCIFEROL 1,000 UNIT TABLET PO SCH (08:14)
[2018-12-03] MEDS: LISINOPRIL 20 MG TABLET PO SCH (08:15)
[2018-12-03] MEDS: METOPROLOL SUCCINATE 25 MG TABLET PO SCH ×2 (08:15→21:17)
[2018-12-03] MEDS: NYSTATIN POWDER 15 GM TOP SCH ×2 (08:16→21:20)
[2018-12-03] MEDS: SERTRALINE 50 MG TABLET PO SCH ×2 (08:16→08:17)
[2018-12-03] MEDS: SPIRONOLACTONE 25 MG TABLET PO SCH (08:17)
[2018-12-03] MEDS: POLYETHYLENE GLYCOL 3350 17 GM PACKET PO SCH (08:20)
--- NOTE | 2018-12-03 15:46 | XRAY Report ---
Reason: F/U CHF Procedure Date: 12/03/2018 Accession Number: [id number] / [id number] Procedure: XR - Chest 1 View X-Ray CPT Code: 15443 FULL RESULT: EXAM: CHEST RADIOGRAPHY EXAM DATE: 12/03/2018 03:37 PM. CLINICAL HISTORY: F/U CHF. COMPARISON: CHEST 1 VIEW 12/02/2018 6:16 AM. TECHNIQUE: 1 view. FINDINGS: Lungs/Pleura: Interval decrease of diffuse interstitial opacity. Lung volumes are stable. No new airspace disease. Negative for pneumothorax. Mediastinum: The heart size is within normal limits for AP technique. Trachea is midline. Other: None. IMPRESSION: Interval decrease of interstitial pulmonary edema and pulmonary vascular congestion. No new airspace disease. RADIA
--- NOTE | 2018-12-03 16:42 | PROVIDER PROGRESS NOTE ---
Assessment/Plan - Problem List (1) Flash pulmonary edema Assessment/Plan: Diuresing well by clinical exam, even though I's and O's are not up to date. Continue iv bid Lasix and management of the new systolic heart failure (as below). A CXR is pending for today. (2) NSTEMI (non-ST elevated myocardial infarction) Assessment/Plan: I called her [employer], Dr Li's office and spoke to his nurse, Sharon and updated her and the patient's case and plan, which will be to transfer for coronary angio to [place]. Sharon will pass this on to the Cardiolgist; he no linger does angiograms. Continue ASA, B-bella, Locvenox therapeutic dose. I discussed angiography, it's risk and benefits with the p[atient and she is agreeable. I will call [facility] for acceptance for transfer. (3) Anasarca Assessment/Plan: Leg edema has entirely resolved, still SOB but O2 needs have decreased from BIPAP to nasal cannula. CXR pending. (4) Acute systolic heart failure Assessment/Plan: Echo done yesterday showed: severely depressed LVEF of <20% with global hypokinesis, significant MR and TR, no pericardial effusion, large RV with depressed RV function as well, bi-atrial enlargement. (5) Hypokalemia Assessment/Plan: Related to aggressive diuresis. Replace per ICU protocol and follow BMP daily. (6) UTI (urinary tract infection) Assessment/Plan: The blood and urine cultures are pending. The optimal management would be iv antibiotics for several days then transfer for a coronary angiogram and use po antibiotics to complete a 7 day course. (7) Diabetes mellitus Qualifiers: Diabetes mellitus complication detail: with unspecified neuropathy Assessment/Plan: Continue cc diet and ss Insulin (8) Obstructive sleep apnea Assessment/Plan: She stopped using her CPAP due to claustrophobia. RV failure may be adding to her leg edema as well as LV systolic failure. (9) Fall at home Assessment/Plan: The patient reported to me for the first time this admission, that she falls at home and these are increasing. There is no warning and she thinks her gait is normal. She wonders if it is because "she has worn down her heels of her feet. I examined her heels and they appear normal with intact skin, warm, and normal sensory exam. She has not been OOB or walked, since admission, due to pulmonary edema and being in the ICU. This complaint will need Neurology evaluation and management. (10) History of poliomyelitis Assessment/Plan: She also mentioned this Hx, which was unknown. The complaint above and this Hx will need a Neurology eval. (11) Hypothyroidism Assessment/Plan: Continue home meds. (12) HTN (hypertension) Assessment/Plan: Continue management using CHF meds. (13) Depression Assessment/Plan: Continue home meds (14) Tachycardia Assessment/Plan: Resolved with meds started and with improved CHF. - Current Meds Current Meds: Current Medications Generic Name Dose Route Start Last Admin Trade Name Freq PRN Reason Stop Dose Admin Acetaminophen 650 mg 12/02/18 00:22 12/02/18 17:07 Tylenol PO 650 mg Q4HR PRN Administration Pain 1 to 4 Allopurinol 100 mg 12/03/18 09:00 12/03/18 08:13 Zyloprim PO 100 mg DAILY ABIEL Administration Aspirin 81 mg 12/03/18 09:00 12/03/18 08:13 [place] Aspirin PO 81 mg DAILY ABIEL Administration Atorvastatin Calcium 80 mg 12/02/18 21:00 12/02/18 21:25 Lipitor PO 80 mg QPM ABIEL Administration Cholecalciferol 1,000 unit 12/03/18 09:00 12/03/18 08:14 Vitamin D3 PO 1,000 unit DAILY ABIEL Administration Clopidogrel Bisulfate 75 mg 12/02/18 18:01 12/03/18 08:14 Plavix PO 75 mg DAILY ABIEL Administration Enoxaparin Sodium 100 mg 12/02/18 19:00 12/03/18 06:26 Lovenox SUBQ 12/04/18 09:00 100 mg 0700,1900 ABIEL Administration Furosemide 20 mg 12/02/18 14:00 12/03/18 13:36 Lasix Inj 20mg Vial IVP 20 mg BIDDIURETIC ABIEL Administration Gabapentin 600 mg 12/02/18 21:00 12/03/18 08:14 Neurontin PO 600 mg BID ABIEL Administration Ceftriaxone Sodium 2 gm/ 100 mls @ 200 mls/hr 12/02/18 21:00 12/02/18 22:22 Sodium Chloride IV Infused Q24H ABIEL Infusion Insulin Aspart 3 - 11 unit 12/02/18 08:00 12/03/18 12:01 Novolog SUBQ 7 unit 0800,1200,1700,2100 ABIEL Administration Protocol Insulin Glargine 10 unit 12/02/18 21:00 12/03/18 08:14 Lantus Solostar SUBQ 10 unit BID ABIEL Administration Lisinopril 20 mg 12/03/18 09:00 12/03/18 08:15 Zestril PO 20 mg DAILY ABIEL Administration Metoprolol Succinate 50 mg 12/02/18 21:00 12/03/18 08:15 Toprol Xl PO 50 mg BID ABIEL Administration Nystatin 1 applic 12/02/18 02:00 12/03/18 08:16 Nystop TOP 1 applic BID ABIEL Administration Pantoprazole Sodium 40 mg 12/02/18 07:00 12/03/18 06:26 Protonix PO 40 mg QDAC ABIEL Administration Polyethylene Glycol 17 gm 12/02/18 09:00 12/03/18 08:20 Miralax PO 17 gm DAILY ABIEL Administration Sertraline HCl 125 mg 12/03/18 09:00 12/03/18 08:16 Zoloft PO 125 mg DAILY ABIEL Administration Sertraline HCl 100 mg 12/03/18 09:00 12/03/18 08:17 Zoloft PO 100 mg DAILY ABIEL Administration Sodium Chloride 10 ml 12/02/18 00:22 12/03/18 13:36 Normal Saline Flush 0.9% IVP 10 ml PRN PRN Administration NEEDED PER PROVIDER ORDERS Sodium Chloride 10 ml 12/02/18 01:00 12/03/18 08:18 Normal Saline Flush 0.9% IVP 10 ml 0100,0900,1700 ABIEL Administration Spironolactone 25 mg 12/02/18 16:00 12/03/18 08:17 Aldactone PO 25 mg DAILY ABIEL Administration - Lab Result Fish Bone Diagrams: 12/04/18 04:50 12/04/18 04:50 - Additional Planning My Orders: My Active Orders 12/02/18 15:47 Daily Weight [RC] 0600 12/02/18 16:00 Spironolactone [Aldactone] 25 mg PO DAILY 12/02/18 18:01 Clopidogrel [Plavix] 75 mg PO DAILY 12/02/18 18:08 Morphine Inj (Carpuject) [Morphine (Carpuject)] 2 mg IVP Q2HR PRN 12/02/18 19:00 Enoxaparin [Lovenox] 100 mg SUBQ 0700,1900 12/02/18 21:00 Atorvastatin [Lipitor] 80 mg PO QPM Gabapentin [Neurontin] 600 mg PO BID Insulin Glargine [Lantus Solostar] 10 unit SUBQ BID Metoprolol Succinate [Toprol Xl] 50 mg PO BID 12/03/18 09:00 Allopurinol [Zyloprim] 100 mg PO DAILY Aspirin Chewable [[place] S[place]a Aspirin] 81 mg PO DAILY Cholecalciferol [Vitamin D3] 1,000 unit PO DAILY Lisinopril [Zestril] 20 mg PO DAILY Sertraline [Zoloft] 100 mg PO DAILY Sertraline [Zoloft] 125 mg PO DAILY 12/04/18 05:00 BNP - B-NATRIURETIC PEPTIDE [IAI] DAILYLAB 12/04/18 07:00 Levothyroxine [Synthroid] 200 mcg PO QDAC 12/04/18 09:00 Ferrous Sulfate [Feosol] 325 mg PO DAILY Subjective - Subjective Patient Reports: Feeling Better, Resting Comfortably, Other (She describes intermittent L frontal numbness and a Hx of falls at home, increasing in frequency) Objective Vital Signs: Vital Signs - 24 hr 12/02/18 12/02/18 12/02/18 17:00 17:45 17:50 Temperature Heart Rate 107 H 120 H Heart Rate [ 126 H Brachial] Respiratory 25 H 24 24 Rate Blood Pressure Blood Pressure 125/81 H [Left Brachial artery] O2 Saturation 95 12/02/18 12/02/18 12/02/18 17:55 18:00 18:01 Temperature Heart Rate 119 H 118 H 117 H Heart Rate [ 119 H Brachial] Respiratory 23 24 21 Rate Blood Pressure 127/66 Blood Pressure 127/66 [Left Brachial artery] O2 Saturation 96 12/02/18 12/02/18 12/02/18 18:05 18:10 18:15 Temperature Heart Rate 118 H 118 H 119 H Heart Rate [ Brachial] Respiratory 28 H 24 25 H Rate Blood Pressure Blood Pressure [Left Brachial artery] O2 Saturation 12/02/18 12/02/18 12/02/18 18:20 18:25 18:28 Temperature Heart Rate 118 H 120 H 103 H Heart Rate [ 119 H Brachial] Respiratory 21 22 23 Rate Blood Pressure Blood Pressure 124/77 [Left Brachial artery] O2 Saturation 96 12/02/18 12/02/18 12/02/18 18:29 18:30 18:33 Temperature Heart Rate 104 H 103 H Heart Rate [ Brachial] Respiratory 29 H 26 H Rate Blood Pressure 124/77 124/77 Blood Pressure [Left Brachial artery] O2 Saturation 12/02/18 12/02/18 12/02/18 18:35 18:36 18:37 Temperature Heart Rate 98 95 97 Heart Rate [ 100 Brachial] Respiratory 30 H 29 H 26 H Rate Blood Pressure 117/64 Blood Pressure 117/64 [Left Brachial artery] O2 Saturation 96 12/02/18 12/02/18 12/02/18 18:39 18:40 18:41 Temperature Heart Rate 97 95 95 Heart Rate [ 96 Brachial] Respiratory 18 23 27 H Rate Blood Pressure 108/59 L Blood Pressure 108/59 L [Left Brachial artery] O2 Saturation 91 L 12/02/18 12/02/18 12/02/18 18:45 18:50 18:55 Temperature Heart Rate 96 99 95 Heart Rate [ Brachial] Respiratory 22 25 H 17 Rate Blood Pressure Blood Pressure [Left Brachial artery] O2 Saturation 12/02/18 12/02/18 12/02/18 19:00 19:01 19:05 Temperature Heart Rate 96 94 92 Heart Rate [ 96 Brachial] Respiratory 22 27 H 23 Rate Blood Pressure 107/59 L Blood Pressure 108/59 L [Left Brachial artery] O2 Saturation 95 12/02/18 12/02/18 12/02/18 19:10 19:15 19:20 Temperature Heart Rate 94 95 94 Heart Rate [ Brachial] Respiratory 26 H 26 H 18 Rate Blood Pressure Blood Pressure [Left Brachial artery] O2 Saturation 12/02/18 12/02/18 12/02/18 19:25 19:30 19:35 Temperature Heart Rate 95 96 94 Heart Rate [ Brachial] Respiratory 25 H 22 19 Rate Blood Pressure Blood Pressure [Left Brachial artery] O2 Saturation 12/02/18 12/02/18 12/02/18 19:40 19:45 19:50 Temperature Heart Rate 95 94 95 Heart Rate [ Brachial] Respiratory 19 20 20 Rate Blood Pressure Blood Pressure [Left Brachial artery] O2 Saturation 12/02/18 12/02/18 12/02/18 19:54 19:55 20:00 Temperature 36.8 C 36.5 C Heart Rate 99 92 Heart Rate [ 92 93 Brachial] Respiratory 19 20 20 Rate Blood Pressure Blood Pressure 107/59 L [Left Brachial artery] O2 Saturation 95 95 12/02/18 12/02/18 12/02/18 20:01 20:05 20:10 Temperature Heart Rate 93 90 92 Heart Rate [ Brachial] Respiratory 19 20 23 Rate Blood Pressure 94/52 L Blood Pressure [Left Brachial artery] O2 Saturation 12/02/18 12/02/18 12/02/18 20:15 20:20 20:25 Temperature Heart Rate 99 94 96 Heart Rate [ Brachial] Respiratory 21 18 20 Rate Blood Pressure Blood Pressure [Left Brachial artery] O2 Saturation 12/02/18 12/02/18 12/02/18 20:30 20:35 20:40 Temperature Heart Rate 100 102 H 100 Heart Rate [ Brachial] Respiratory 23 25 H 22 Rate Blood Pressure Blood Pressure [Left Brachial artery] O2 Saturation 12/02/18 12/02/18 12/02/18 20:45 20:50 20:55 Temperature Heart Rate 95 93 98 Heart Rate [ Brachial] Respiratory 19 16 21 Rate Blood Pressure Blood Pressure [Left Brachial artery] O2 Saturation 12/02/18 12/02/18 12/02/18 21:00 21:01 21:24 Temperature Heart Rate 99 95 96 Heart Rate [ 96 Brachial] Respiratory 20 19 22 Rate Blood Pressure 104/64 105/73 Blood Pressure 104/64 [Left Brachial artery] O2 Saturation 97 12/02/18 12/02/18 12/02/18 21:25 21:30 21:35 Temperature Heart Rate 94 98 97 Heart Rate [ Brachial] Respiratory 21 26 H 24 Rate Blood Pressure Blood Pressure [Left Brachial artery] O2 Saturation 12/02/18 12/02/18 12/02/18 21:40 21:45 21:50 Temperature Heart Rate 94 100 94 Heart Rate [ Brachial] Respiratory 23 25 H 22 Rate Blood Pressure Blood Pressure [Left Brachial artery] O2 Saturation 12/02/18 12/02/18 12/02/18 21:52 21:55 22:00 Temperature Heart Rate 95 99 Heart Rate [ 95 Brachial] Respiratory 24 25 H 21 Rate Blood Pressure Blood Pressure 105/73 [Left Brachial artery] O2 Saturation 96 12/02/18 12/02/18 12/02/18 22:01 22:05 22:10 Temperature Heart Rate 102 H 103 H 106 H Heart Rate [ Brachial] Respiratory 21 22 21 Rate Blood Pressure 142/68 H Blood Pressure [Left Brachial artery] O2 Saturation 12/02/18 12/02/18 12/02/18 22:15 22:20 22:25 Temperature Heart Rate 106 H 107 H 106 H Heart Rate [ Brachial] Respiratory 22 21 19 Rate Blood Pressure Blood Pressure [Left Brachial artery] O2 Saturation 12/02/18 12/02/18 12/02/18 22:30 22:35 22:40 Temperature Heart Rate 105 H 105 H 107 H Heart Rate [ Brachial] Respiratory 19 25 H 25 H Rate Blood Pressure Blood Pressure [Left Brachial artery] O2 Saturation 12/02/18 12/02/18 12/02/18 22:45 22:50 22:55 Temperature Heart Rate 104 H 105 H 106 H Heart Rate [ Brachial] Respiratory 20 20 20 Rate Blood Pressure Blood Pressure [Left Brachial artery] O2 Saturation 12/02/18 12/02/18 12/02/18 23:00 23:01 23:05 Temperature Heart Rate 103 H 112 H 107 H Heart Rate [ 107 H Brachial] Respiratory 19 21 21 Rate Blood Pressure 131/75 H Blood Pressure 131/75 H [Left Brachial artery] O2 Saturation 95 12/02/18 12/02/18 12/02/18 23:10 23:15 23:20 Temperature Heart Rate 101 H 95 117 H Heart Rate [ Brachial] Respiratory 11 L 18 22 Rate Blood Pressure Blood Pressure [Left Brachial artery] O2 Saturation 12/02/18 12/02/18 12/02/18 23:25 23:30 23:35 Temperature Heart Rate 96 97 97 Heart Rate [ Brachial] Respiratory 21 21 20 Rate Blood Pressure Blood Pressure [Left Brachial artery] O2 Saturation 12/02/18 12/02/18 12/02/18 23:40 23:45 23:50 Temperature Heart Rate 96 96 109 H Heart Rate [ Brachial] Respiratory 20 22 24 Rate Blood Pressure Blood Pressure [Left Brachial artery] O2 Saturation 12/02/18 12/03/18 12/03/18 23:55 00:00 00:01 Temperature Heart Rate 107 H 106 H 106 H Heart Rate [ Brachial] Respiratory 19 18 19 Rate Blood Pressure 128/80 Blood Pressure [Left Brachial artery] O2 Saturation 12/03/18 12/03/18 12/03/18 00:05 00:10 00:15 Temperature Heart Rate 108 H 106 H 92 Heart Rate [ Brachial] Respiratory 19 21 22 Rate Blood Pressure Blood Pressure [Left Brachial artery] O2 Saturation 12/03/18 12/03/18 12/03/18 00:20 00:25 00:30 Temperature Heart Rate 93 99 117 H Heart Rate [ Brachial] Respiratory 19 19 20 Rate Blood Pressure Blood Pressure [Left Brachial artery] O2 Saturation 12/03/18 12/03/18 12/03/18 00:35 00:40 00:45 Temperature Heart Rate 113 H 117 H 94 Heart Rate [ Brachial] Respiratory 20 19 19 Rate Blood Pressure Blood Pressure [Left Brachial artery] O2 Saturation 12/03/18 12/03/18 12/03/18 00:50 00:55 01:00 Temperature 36.5 C Heart Rate 101 H 95 92 Heart Rate [ 92 Brachial] Respiratory 21 21 20 Rate Blood Pressure Blood Pressure 113/72 [Left Brachial artery] O2 Saturation 12/03/18 12/03/18 12/03/18 01:01 01:05 01:20 Temperature Heart Rate 96 97 97 Heart Rate [ Brachial] Respiratory 23 23 22 Rate Blood Pressure 113/72 Blood Pressure [Left Brachial artery] O2 Saturation 12/03/18 12/03/18 12/03/18 01:25 01:30 01:35 Temperature Heart Rate 100 100 98 Heart Rate [ Brachial] Respiratory 21 21 25 H Rate Blood Pressure Blood Pressure [Left Brachial artery] O2 Saturation 12/03/18 12/03/18 12/03/18 01:40 01:45 01:50 Temperature Heart Rate 100 97 94 Heart Rate [ Brachial] Respiratory 23 20 21 Rate Blood Pressure Blood Pressure [Left Brachial artery] O2 Saturation 12/03/18 12/03/18 12/03/18 01:55 02:00 02:01 Temperature Heart Rate 94 96 95 Heart Rate [ 99 Brachial] Respiratory 22 26 H 21 Rate Blood Pressure 113/78 Blood Pressure 113/78 [Left Brachial artery] O2 Saturation 97 12/03/18 12/03/18 12/03/18 02:05 02:10 02:15 Temperature Heart Rate 95 96 97 Heart Rate [ Brachial] Respiratory 21 19 21 Rate Blood Pressure Blood Pressure [Left Brachial artery] O2 Saturation 12/03/18 12/03/18 12/03/18 02:20 02:25 02:30 Temperature Heart Rate 96 98 98 Heart Rate [ Brachial] Respiratory 20 23 22 Rate Blood Pressure Blood Pressure [Left Brachial artery] O2 Saturation 12/03/18 12/03/18 12/03/18 02:35 02:40 02:45 Temperature Heart Rate 96 102 H 98 Heart Rate [ Brachial] Respiratory 18 24 18 Rate Blood Pressure Blood Pressure [Left Brachial artery] O2 Saturation 12/03/18 12/03/18 12/03/18 02:50 02:55 03:00 Temperature Heart Rate 99 98 97 Heart Rate [ 99 Brachial] Respiratory 24 20 20 Rate Blood Pressure Blood Pressure 142/70 H [Left Brachial artery] O2 Saturation 97 12/03/18 12/03/18 12/03/18 03:01 03:05 03:10 Temperature Heart Rate 102 H 96 96 Heart Rate [ Brachial] Respiratory 24 18 21 Rate Blood Pressure 142/70 H Blood Pressure [Left Brachial artery] O2 Saturation 12/03/18 12/03/18 12/03/18 03:15 03:20 03:25 Temperature Heart Rate 96 96 96 Heart Rate [ Brachial] Respiratory 18 21 20 Rate Blood Pressure Blood Pressure [Left Brachial artery] O2 Saturation 12/03/18 12/03/18 12/03/18 03:30 03:35 03:40 Temperature Heart Rate 103 H 97 96 Heart Rate [ Brachial] Respiratory 21 21 21 Rate Blood Pressure Blood Pressure [Left Brachial artery] O2 Saturation 12/03/18 12/03/18 12/03/18 03:45 03:50 03:55 Temperature Heart Rate 97 93 95 Heart Rate [ Brachial] Respiratory 20 20 19 Rate Blood Pressure Blood Pressure [Left Brachial artery] O2 Saturation 12/03/18 12/03/18 12/03/18 04:00 04:01 04:05 Temperature Heart Rate 101 H 101 H 99 Heart Rate [ 101 H Brachial] Respiratory 20 20 20 Rate Blood Pressure 107/66 Blood Pressure 107/66 [Left Brachial artery] O2 Saturation 96 12/03/18 12/03/18 12/03/18 04:10 04:15 04:20 Temperature Heart Rate 92 96 96 Heart Rate [ Brachial] Respiratory 20 18 20 Rate Blood Pressure Blood Pressure [Left Brachial artery] O2 Saturation 12/03/18 12/03/18 12/03/18 04:25 04:27 04:30 Temperature 36.6 C Heart Rate 93 94 Heart Rate [ 93 Brachial] Respiratory 19 19 19 Rate Blood Pressure Blood Pressure [Left Brachial artery] O2 Saturation 97 12/03/18 12/03/18 12/03/18 04:35 04:40 04:45 Temperature Heart Rate 95 91 96 Heart Rate [ Brachial] Respiratory 18 20 20 Rate Blood Pressure Blood Pressure [Left Brachial artery] O2 Saturation 12/03/18 12/03/18 12/03/18 04:50 04:55 05:00 Temperature Heart Rate 105 H 94 96 Heart Rate [ 96 Brachial] Respiratory 20 20 19 Rate Blood Pressure Blood Pressure 95/61 [Left Brachial artery] O2 Saturation 96 12/03/18 12/03/18 12/03/18 05:01 05:05 06:00 Temperature Heart Rate 95 94 Heart Rate [ 95 Brachial] Respiratory 20 19 19 Rate Blood Pressure 95/61 Blood Pressure 103/65 [Left Brachial artery] O2 Saturation 96 12/03/18 12/03/18 12/03/18 07:00 08:00 09:00 Temperature Heart Rate Heart Rate [ 92 100 106 H Brachial] Respiratory 19 21 23 Rate Blood Pressure Blood Pressure 98/51 L 111/57 L 108/56 L [Left Brachial artery] O2 Saturation 95 95 96 12/03/18 12/03/18 12/03/18 10:00 11:00 12:00 Temperature Heart Rate Heart Rate [ 94 94 92 Brachial] Respiratory 22 18 21 Rate Blood Pressure Blood Pressure 109/54 L 110/64 114/77 [Left Brachial artery] O2 Saturation 96 95 96 12/03/18 12/03/18 12/03/18 13:00 14:00 15:00 Temperature Heart Rate Heart Rate [ 94 88 93 Brachial] Respiratory 21 20 22 Rate Blood Pressure Blood Pressure 105/61 113/69 131/59 H [Left Brachial artery] O2 Saturation 95 95 12/03/18 16:00 Temperature Heart Rate Heart Rate [ 91 Brachial] Respiratory 31 H Rate Blood Pressure Blood Pressure 131/59 H [Left Brachial artery] O2 Saturation 96 Oxygen O2 Source Room air Oxygen Flow Rate 2 I&O (Last 24 Hrs): Intake and Output Totals x24h 12/01/18 12/02/18 12/03/18 23:59 23:59 23:59 Intake Total 2761 780 Output Total 1675 970 Balance 1086 -190 General: Alert, Oriented x3 HEENT: Mucous membr. moist/pink Neck: Supple, Other (Obese, cannot eval for JVD) Neuro: Alert, Non Focal Cardiovascular: Regular rate, No murmurs Respiratory: No respiratory distress, Breath sounds nml Abdomen: Soft, Other (Obese with pannus) Extremities: No edema - Results Results: Laboratory Results WBC 14.4 x10^3/uL (4.8-10.8) H 12/03/18 04:20 RBC 3.74 10^6/uL (4.20-5.40) L 12/03/18 04:20 Hgb 11.0 g/dL (12.0-16.0) L 12/03/18 04:20 Hct 35.5 % (37.0-47.0) L 12/03/18 04:20 MCV 94.9 fL (81.0-99.0) 12/03/18 04:20 MCH 29.4 pg (27.0-31.0) 12/03/18 04:20 MCHC 31.0 g/dL (32.0-36.0) L 12/03/18 04:20 RDW 15.3 % (12.0-15.0) H 12/03/18 04:20 Plt Count 224 10^3/uL (130-450) 12/03/18 04:20 MPV 10.2 fL (7.9-10.8) 12/03/18 04:20 Neut # (Auto) 11.5 10^3/uL (1.5-6.6) H 12/03/18 04:20 Lymph # (Auto) 1.8 10^3/uL (1.5-3.5) 12/03/18 04:20 [place] # (Auto) 0.8 10^3/uL (0.0-1.0) 12/03/18 04:20 Eos # (Auto) 0.1 10^3/uL (0.0-0.7) 12/03/18 04:20 Baso # (Auto) 0.1 10^3/uL (0.0-0.1) 12/03/18 04:20 Absolute Nucleated RBC 0.00 x10^3/uL 12/03/18 04:20 Nucleated RBC % 0.0 /100WBC 12/03/18 04:20 Bld Gas Analysis Time 0735 12/02/18 07:35 ABG pH 7.39 (7.35-7.45) 12/02/18 07:35 ABG pCO2 34 mmHg (34-45) 12/02/18 07:35 ABG pO2 131 mmHg (80-100) H 12/02/18 07:35 ABG HCO3 20.2 mmol/L (22.0-26.0) L 12/02/18 07:35 ABG Total CO2 21.2 MMOL/L (21.0-29.0) 12/02/18 07:35 ABG O2 Saturation 98 % (94-98) 12/02/18 07:35 ABG Base Excess -4.0 mmol/L (-2.0-3.0) L 12/02/18 07:35 [place]lon Test POSITIVE 12/02/18 07:35 VBG pH 7.426 (7.31-7.41) H 12/01/18 22:54 VBG pCO2 34.7 mmHg (41-51) L 12/01/18 22:54 VBG pO2 71.2 mmHg (25-47) H 12/01/18 22:54 VBG HCO3 22.3 mmol/L (23-28) L 12/01/18 22:54 VBG Total CO2 23.4 mmol/L (24-29) L 12/01/18 22:54 VBG O2 Saturation 94.8 % (60-80) H 12/01/18 22:54 VBG Base Excess -1.5 mmol/L (-2 - +2) 12/01/18 22:54 Respiration Rate 16 b/min 12/02/18 07:35 O2 Delivery Device BiPAP 12/02/18 07:35 Vent Mode SYNCHRONOUS/TIMES 12/02/18 07:35 FiO2 60.00 12/02/18 07:35 EPAP 5 cmH2O 12/02/18 07:35 IPAP 12 cmH2O 12/02/18 07:35 Sodium 139 mmol/L (135-145) 12/03/18 04:25 Potassium 3.4 mmol/L (3.5-5.0) L 12/03/18 04:25 Chloride 101 mmol/L (101-111) 12/03/18 04:25 Carbon Dioxide 27 mmol/L (21-32) 12/03/18 04:25 Anion Gap 11.0 (6-13) 12/03/18 04:25 BUN 14 mg/dL (6-20) 12/03/18 04:25 Creatinine 0.8 mg/dL (0.4-1.0) 12/03/18 04:25 Estimated GFR (MDRD) 70 (>89) L 12/03/18 04:25 Glucose 204 mg/dL (70-100) H 12/03/18 04:25 POC Whole Bld Glucose 229 mg/dL (70 - 100) H 12/03/18 11:48 Glycated Hemoglobin 6.6 % (4.6-6.2) H 12/02/18 05:20 Estim Average Glucose 143 (70-100) H 12/02/18 05:20 Lactic Acid 1.3 mmol/L (0.5-2.2) 12/01/18 22:54 Calcium 8.3 mg/dL (8.5-10.3) L 12/03/18 04:25 Total Bilirubin 1.2 mg/dL (0.2-1.0) H 12/01/18 22:44 AST 35 IU/L (10-42) 12/01/18 22:44 ALT 34 IU/L (10-60) 12/01/18 22:44 Alkaline Phosphatase 59 IU/L (42-121) 12/01/18 22:44 Troponin I High Sens 393.8 pg/mL (2.3-14.8) H* 12/02/18 21:58 B-Natriuretic Peptide 486 pg/mL (5-100) H 12/03/18 04:20 Total Protein 8.3 g/dL (6.7-8.2) H 12/01/18 22:44 Albumin 4.1 g/dL (3.2-5.5) 12/01/18 22:44 Globulin 4.2 g/dL (2.1-4.2) 12/01/18 22:44 Albumin/Globulin Ratio 1.0 (1.0-2.2) 12/01/18 22:44 Triglycerides 172 mg/dL (-149) H 12/03/18 04:20 Cholesterol 170 mg/dL (-199) 12/03/18 04:20 LDL Cholesterol, Calc 109 mg/dL (-129) 12/03/18 04:20 VLDL Cholesterol 34 mg/dL 12/03/18 04:20 HDL Cholesterol 27 mg/dL (60-) L 12/03/18 04:20 LDL/HDL Ratio 4.0 (<4.4) 12/03/18 04:20 Cholesterol/HDL Ratio 6.3 (<4.4) 12/03/18 04:20 Lipase 21 U/L (22-51) L 12/01/18 22:44 TSH 5.84 uIU/mL (0.34-5.60) H 12/03/18 04:20 Urine Color YELLOW 12/01/18 22:45 Urine Clarity HAZY (CLEAR) 12/01/18 22:45 Urine pH 7.0 PH (5.0-7.5) 12/01/18 22:45 Ur Specific [place] 1.015 (1.002-1.030) 12/01/18 22:45 Urine Protein TRACE mg/dL (NEGATIVE) 12/01/18 22:45 Urine Glucose (UA) NEGATIVE mg/dL (NEGATIVE) 12/01/18 22:45 Urine Ketones NEGATIVE mg/dL (NEGATIVE) 12/01/18 22:45 Urine Occult Blood TRACE-LYSE (NEGATIVE) 12/01/18 22:45 Urine Nitrite NEGATIVE (NEGATIVE) 12/01/18 22:45 Urine Bilirubin NEGATIVE (NEGATIVE) 12/01/18 22:45 Urine Urobilinogen 0.2 (NORMAL) E.U./dL (NORMAL) 12/01/18 22:45 Ur Leukocyte Esterase TRACE (NEGATIVE) H 12/01/18 22:45 Urine RBC 0-5 /HPF (0-5) 12/01/18 22:45 Urine WBC 11-25 /HPF (0-5) H 12/01/18 22:45 Ur Squamous Epith Cells FEW Squamous (<= Few) 12/01/18 22:45 Urine Bacteria Many /HPF (None Seen) H 12/01/18 22:45 Ur Microscopic Review INDICATED 12/01/18 22:45 Urine Culture Comments INDICATED 12/01/18 22:45 Nasal Screen MRSA (PCR) NEGATIVE (NEGATIVE) 12/02/18 20:00 Serum Ketones NEGATIVE (NEGATIVE) 12/01/18 22:44 Group A Strep Rapid Negative (Negative) 12/01/18 22:45 - Procedures Procedures: Procedures SUPPLEMENT ABDOMINAL WALL WITH SYNTH SUB, OPEN APPROACH (04/21/18)
[2018-12-03] MEDS: ATORVASTATIN 40 MG TABLET PO SCH (21:16)
[2018-12-03] MEDS: cefTRIAXone 2 GM in SODIUM CHLORIDE 0.9% MINIBAG 100 ML IV SCH (21:22)
[2018-12-04 05:55] LABS: BASOPHILS # (AUTO) 0.1 10^3/uL (0.0-0.1); EOSINOPHILS # (AUTO) 0.2 10^3/uL (0.0-0.7); EOSINOPHILS % (AUTO) 1.6 %; HGB - HEMOGLOBIN 10.5 g/dL (12.0-16.0); LYMPHOCYTES # (AUTO) 2.9 10^3/uL (1.5-3.5); LYMPHOCYTES % (AUTO) 26.4 %; MEAN CORPUSCULAR HEMOGLOBIN 28.7 pg (27.0-31.0); MEAN CORPUSCULAR HGB CONC 30.3 g/dL (32.0-36.0); MEAN CORPUSCULAR VOLUME 94.8 fL (81.0-99.0); MEAN PLATELET VOLUME 10.3 fL (7.9-10.8); MONOCYTES # (AUTO) 0.7 10^3/uL (0.0-1.0); NEUTROPHILS # (AUTO) 7.1 10^3/uL (1.5-6.6); NEUTROPHILS % (AUTO) 64.5 %; PLT - PLATELET COUNT 259 10^3/uL (130-450); RED BLOOD COUNT 3.66 10^6/uL (4.20-5.40)
[2018-12-04 05:57] LABS: VBG PH 7.427 (7.31-7.41)
[2018-12-04 06:06] LABS: CALCIUM 8.3 mg/dL (8.5-10.3); CREATININE 0.8 mg/dL (0.4-1.0)
[2018-12-04 06:07] LABS: MAGNESIUM 1.8 mg/dL (1.7-2.8); PHOSPHORUS 2.5 mg/dL (2.5-4.6)
[2018-12-04] MEDS: FUROSEMIDE 20 MG/2 ML VIAL IVP SCH ×2 (06:23→14:34)
[2018-12-04] MEDS: PANTOPRAZOLE 40 MG TABLET PO SCH (06:23)
[2018-12-04] MEDS: SODIUM CHLORIDE FLUSH 0.9% 10 ML SYRINGE IVP PRN ×2 (06:24→14:34)
[2018-12-04] MEDS: ACETAMINOPHEN 325 MG TABLET PO PRN (06:28)
[2018-12-04] MEDS: ENOXAPARIN 100 MG/ML SYRINGE SUBQ SCH (06:30)
[2018-12-04] MEDS ORDERED: LEVOTHYROXINE 100 MCG TABLET PO SCH (07:00)
[2018-12-04] MEDS: INSULIN ASPART 300 UNIT/3 ML PEN SUBQ SCH ×2 (08:30→11:59)
[2018-12-04] MEDS: SERTRALINE 50 MG TABLET PO SCH ×2 (08:31)
[2018-12-04] MEDS: SPIRONOLACTONE 25 MG TABLET PO SCH (08:31)
[2018-12-04] MEDS: ASPIRIN CHEW 81 MG TABLET PO SCH (08:31)
[2018-12-04] MEDS: GABAPENTIN 300 MG CAPSULE PO SCH (08:31)
[2018-12-04] MEDS: CHOLECALCIFEROL 1,000 UNIT TABLET PO SCH (08:31)
[2018-12-04] MEDS: ALLOPURINOL 100 MG TABLET PO SCH (08:32)
[2018-12-04] MEDS: CLOPIDOGREL 75 MG TABLET PO SCH (08:32)
[2018-12-04] MEDS: POLYETHYLENE GLYCOL 3350 17 GM PACKET PO SCH (08:33)
[2018-12-04] MEDS: INSULIN GLARGINE 300 UNIT/3 ML PEN SUBQ SCH (08:33)
[2018-12-04] MEDS: NYSTATIN POWDER 15 GM TOP SCH (08:34)
[2018-12-04] MEDS: SODIUM CHLORIDE FLUSH 0.9% 10 ML SYRINGE IVP SCH (08:34)
[2018-12-04] MEDS: METOPROLOL SUCCINATE 25 MG TABLET PO SCH (08:37)
[2018-12-04] MEDS: LISINOPRIL 20 MG TABLET PO SCH (08:37)
[2018-12-04] MEDS ORDERED: FERROUS SULFATE 325 MG TABLET PO SCH (09:00)
[2018-12-04] MEDS ORDERED: AMOX/CLAV 875 MG/125 MG TABLET PO SCH (12:00)
--- NOTE | 2018-12-04 14:24 | DISCHARGE SUMMARY ---
Discharge Summary Admit Date: 12/02/18 Discharge Date: 12/04/18 Discharging Provider: Dr Judit Zayas Primary Care Provider: Dr Bruna Coelho Code Status: Attempt Resuscitation Condition at Discharge: Serious Discharge Disposition: 02 Transfer Acute Care Hosp Discharge Facility Name: [facility] - DIAGNOSES Admission Diagnoses: (1) UTI (urinary tract infection) (2) Diabetes mellitus (3) Hypothyroidism (4) Hypertension (5) GERD (gastroesophageal reflux disease) (6) Osteoporosis (7) Depression (8) Chronic back pain (9) Obstructive sleep apnea (10) Nori rash of groin Discharge Diagnoses with Status of Each Condition: See below - HPI History of Present Illness: From the admission H&P of Dr Peter Jiménez: Patient is a 73 y/o female who has a hx of IDDM, Sleep apnea refusing to use BIPAP, Hypothyroidism and Depression. She presented to the ED via EMS with complain of weakness. It was so significant that she was unable to get out of bed. As a result she did not take her insulin today. She reports having chills 2 days ago. She denied chest pain or abdominal pain. In the ED she was found to be tachycardic with a pulse in the 120's and mildly dyspneic. She had a temp of 38.3C and a WBC of 16. A UA done was suggestive on a UTI. As a result she is being admitted for further treatment. - HOSPITAL COURSE Hospital Course: (1) Flash pulmonary edema The night of admission she got suddenly SOB with diaphoresis and desaturated. Gio wright was transferred to the ICU and required BIPAP with 100% FIO2, and Ativan (for her claustrophobia). The CXR showed pulmonary edema. She was diuresed with iv bid Lasix. She lost 2 kg by the following day and BIPAP was weaned to off over 2 days. to O2 2L per n.c. (2) NSTEMI (non-ST elevated myocardial infarction) Her hs-troponins addie (163>> 433>> 518>> 393) and EKG showed lateral ST depressions that improved by the next day. She was put on ASA, Plavix, B- bella, Lipitor and Lovenox therapeutic dose for 48 hours. She described never having a previous angiogram. I obtained records from her [employer], Dr Li, who's office visit notes stated "chronic diastolic heart failure". I spoke to Dr Alvarez's nurse, Sharon and updated her on the patient's case and p haydee, which will be to transfer for coronary angio to [place]. I discussed the need for coronary angiography, it's risk and benefits with the patient and she was agreeable. She was accepted in transfer to [facility] by the Hospitalist and was transferred by ambulance on 12/04/18 in stable condition. (3) Anasarca On transfer to the ICU, her exam showed 4+ leg edema to the thighs, which had entirely resolved by the time of transfer to [facility]. (4) Acute systolic heart failure Echo done after the flash pulmonary edema showed: severely depressed LVEF of <20% with global hypokinesis, significant MR and TR, no pericardial effusion, large RV with depressed RV function as well, bi-atrial enlargement. This is a new finding for her. She was kept on her Losartan, B-bella, Lasix and started on Spironolactone. (5) Hypokalemia Related to aggressive diuresis. Replaced per ICU protocol and BMP followed daily. (6) UTI (urinary tract infection) She was started on iv Rocephin empirically. The blood cultures are neg to date and urine cultures grew E coli. She had 3 days of iv Rocephin antibiotic and WBC responded, and was then changed to po antibiotics and should complete a 7 day course. The choice of oral antibiotic was made based on sensitivities of the E coli plus the (+) Strep throat culture (see below). (7) Strep throat She complained of pain on swallowing and wanted a soft diet. A throat culture was done and returned (+) for Strep throat. For this reason, the choice of antibiotic was Augmentin. (8) Diabetes mellitus After BIPAP was weaned to off, she was on a cc diet and ss Insulin (9) Obstructive sleep apnea She had stopped using her CPAP due to claustrophobia. The Echo did show RV enlargement and RV failure may have added to her leg edema as well as LV asynchrony and therefore, to her LV systolic failure. (10) Fall at home The patient reported to me, for the first time this admission, that she falls at home and these are increasing. There is no warning and she thinks her gait is normal. She wonders if it is because "she has worn down her heels of her feet. I examined her heels and they appear normal with intact skin, warm, and normal sensory exam. She has not walked, since admission, due to pulmonary edema and being in the ICU. This complaint will need Neurology evaluation and management. (11) History of poliomyelitis She also mentioned this Hx, which was unknown at the time of admission. The complaint above and this Hx will need a Neurology evaluation (12) Hypothyroidism Her TSH was 5.84. She was kept on her home meds. (13) HTN (hypertension) Continued management using CHF meds. (14) Depression She was continued on home meds - ALLERGIES Allergies/Adverse Reactions: Allergies Allergy/AdvReac Type Severity Reaction Status Date / Time No Known Drug Allergies Allergy Verified 12/01/18 22:26 - MEDICATIONS Home Medications: Ambulatory Orders Medication Instructions Recorded Confirmed Levothyroxine Sodium [Synthroid] 200 mcg PO QDAC 07/10/12 12/02/18 Lisinopril 20 mg PO DAILY 07/10/12 12/02/18 Aspirin [Rosalinda] 81 mg PO DAILY 08/24/14 12/02/18 Cholecalciferol (Vitamin D3) 1,000 units PO DAILY 08/24/14 12/02/18 [Vitamin D] Gabapentin 600 mg PO BID 08/24/14 12/02/18 metFORMIN [Glucophage] 500 mg PO TIDWM 08/24/14 12/02/18 Calcium Carbonate [Calcium] 600 mg PO QDBREAKFAST 12/16/14 12/02/18 Insulin Glargine,Hum.rec.anlog 50 unit SUBQ BID 12/16/14 12/02/18 [Lantus] Ibandronate Sodium [Boniva] 150 mg PO Q30D 12/04/16 12/02/18 Hydrochlorothiazide 12.5 mg PO DAILY 12/10/17 12/02/18 diltiaZEM [Cardizem] 30 mg PO TID 12/10/17 12/02/18 Allopurinol 100 mg PO DAILY 07/15/18 12/02/18 Ferrous Sulfate 325 mg PO DAILY 11/09/18 12/02/18 Omeprazole 20 mg PO QDAC 12/02/18 12/02/18 Sertraline HCl 100 mg PO DAILY 12/02/18 12/02/18 Simvastatin 20 mg PO QPM 12/02/18 12/02/18 - PHYSICAL EXAM AT DISCHARGE General Appearance: positive: No acute distress, Alert Eyes Bilateral: positive: Normal inspection ENT: positive: ENT inspection nml, No signs of dehydration Neck: positive: Nml inspection, Other (Obese neck, cannot eval for JVD) Respiratory: positive: No respiratory distress, Breath sounds nml Cardiovascular: positive: Regular rate & rhythm, No murmur Abdomen: positive: Non-tender, Other (Obese with pannus) Skin: positive: Color nml, No rash Extremities: positive: No pedal edema Neurologic/Psychiatric: positive: Oriented x3, Other (Grossly normal) - LABS Result Diagrams: 12/04/18 04:50 12/04/18 04:50
[2018-12-04 16:05] VITALS: BP 106/53
== END 2018-12-04 16:00 | disposition short-term general hospital (02) | DRG 689 ==
LOC: EDUNIT# → ED 22:18 → MS2 12-02 00:22 → ICU 12-02 07:16
PROVIDERS: ADMIT Internal Medicine; ATTEND Internal Medicine
DX: N39.0 Urinary tract infection, site not specified (principal); R09.02 Hypoxemia; J35.1 Hypertrophy of tonsils; I21.4 Non-ST elevation (NSTEMI) myocardial infarction; I50.43 Acute on chronic combined systolic (congestive) and diastolic (congestive) heart failure; E11.40 Type 2 diabetes mellitus with diabetic neuropathy, unspecified; E11.65 Type 2 diabetes mellitus with hyperglycemia; I50.9 Heart failure, unspecified; T38.3X6A Underdosing of insulin and oral hypoglycemic [antidiabetic] drugs, initial encounter; G47.30 Sleep apnea, unspecified; E66.01 Morbid (severe) obesity due to excess calories; Z91.138 Patient's unintentional underdosing of medication regimen for other reason; Y92.009 Unspecified place in unspecified non-institutional (private) residence as the place of occurrence of the external cause; E87.6 Hypokalemia; Z68.41 Body mass index [BMI] 40.0-44.9, adult; T50.1X5A Adverse effect of loop [high-ceiling] diuretics, initial encounter; Y92.230 Patient room in hospital as the place of occurrence of the external cause; B96.20 Unspecified Escherichia coli [E. coli] as the cause of diseases classified elsewhere; J02.0 Streptococcal pharyngitis; E78.00 Pure hypercholesterolemia, unspecified; J44.9 Chronic obstructive pulmonary disease, unspecified; E03.9 Hypothyroidism, unspecified; K21.9 Gastro-esophageal reflux disease without esophagitis; M81.0 Age-related osteoporosis without current pathological fracture; F32.9 Major depressive disorder, single episode, unspecified; M54.9 Dorsalgia, unspecified; G89.29 Other chronic pain; M41.9 Scoliosis, unspecified; G47.33 Obstructive sleep apnea (adult) (pediatric); B37.2 Candidiasis of skin and nail; F40.240 Claustrophobia; I11.0 Hypertensive heart disease with heart failure; I08.1 Rheumatic disorders of both mitral and tricuspid valves; Z79.4 Long term (current) use of insulin; Z91.19 Patient's noncompliance with other medical treatment and regimen; Z79.899 Other long term (current) drug therapy; Z91.81 History of falling; Z86.12 Personal history of poliomyelitis; Z79.82 Long term (current) use of aspirin
CPT/HCPCS: 36415; 36600; 71045; 80048; 80053; 80061; 81001; 82009; 82330; 82803; 83036; 83605; 83690; 83735; 83880; 84100; 84443; 84484; 85025; 87040; 87070; 87077; 87086; 87150; 87181; 87430; 93005; 93306; 94660; 96361; 96365; 99285; A9270; J1650; J1815; J2060; 81003; 83721

== ENCOUNTER 2019-01-19 16:39 | Outpatient (CLI) | payer MEDICARE, OTHER ==
--- NOTE | 2019-01-20 14:05 | XRAY Report ---
Reason: PAIN + BONY PROJECTION L ANKLE Procedure Date: 01/19/2019 Accession Number: [id number] / [id number] Procedure: XR - Ankle 3 View LT CPT Code: Final Report FULL RESULT: EXAM: LEFT ANKLE RADIOGRAPHY EXAM DATE: 01/19/2019 04:59 PM. CLINICAL HISTORY: Pain and bony projection left ankle. COMPARISON: ANKLE 3 VIEW LT 04/09/2017 9:36 AM. TECHNIQUE: 3 views. FINDINGS: Bones: Interval increase in size of a bulky osteophyte at the dorsum of the tibionavicular articulation. It extends approximately 2 cm cephalad from a line drawn from the dorsum of the middle cuneiform to the dorsum of the unaffected portion of the talus, versus 1.6 cm on the comparison study. As before, there is significant narrowing of this articulation throughout its length. The left ankle otherwise is without significant change. IMPRESSION: Interval increase in size of a bulky osteophyte at the dorsum of the talonavicular joint. RADIA
== END 2019-01-19 16:40 | disposition home or self-care (01) ==
LOC: DI 16:39
PROVIDERS: ATTEND Podiatrist
DX: M25.772 Osteophyte, left ankle (principal)

== ENCOUNTER 2019-11-12 14:05 | Outpatient (CLI) | payer MEDICARE, OTHER | END 2019-11-12 14:06 | disposition home or self-care (01) | LOC: LAB 14:05 | PROVIDERS: ATTEND Nurse Practitioner Family | DX: Z01.818 Encounter for other preprocedural examination (principal); Z20.828 Contact with and (suspected) exposure to other viral communicable diseases ==

== ENCOUNTER 2019-11-26 12:38 | Outpatient (CLI) | payer MEDICARE, OTHER | END 2019-11-26 12:39 | disposition home or self-care (01) | LOC: LAB 12:38 | PROVIDERS: ATTEND Ophthalmology | DX: Z20.828 Contact with and (suspected) exposure to other viral communicable diseases (principal) ==

== ENCOUNTER 2020-01-04 12:55 | Outpatient (CLI) | payer MEDICARE, OTHER | END 2020-01-04 12:56 | disposition critical access hospital (66) | LOC: EMS 12:55 | PROVIDERS: ATTEND Surgery | DX: M54.5 Low back pain (principal); W18.39XA Other fall on same level, initial encounter; Y93.E3 Activity, vacuuming; Y92.009 Unspecified place in unspecified non-institutional (private) residence as the place of occurrence of the external cause | CPT/HCPCS: A0425; A0429 ==

== ENCOUNTER 2020-01-04 13:17 | Emergency (ER) | payer MEDICARE, OTHER ==
[2020-01-04] MEDS ORDERED: KETOROLAC 60 MG/2 ML VIAL IM STA (13:49)
--- NOTE | 2020-01-04 13:54 | ED Physician Documentation ---
History of Present Illness - Stated complaint Stated Complaint: GLF - Chief complaint Chief Complaint: Trauma Ch/Bk - Additonal information Additional information: 74-year-old female presents to the emergency department for evaluation of acut eAfternoon and falling back back and sacral pain. She reports vacuuming at home this directly onto her bottom and hardwood floor. She had pain in her sacral coccyx area and could not get up without assistance. She does of have a history of previous spinal surgery in the T12-L1 area many years ago. At present right now patient does not have any saddle anesthesia weakness in the legs or numbness . She does have a history of recurrent falls. She does have left-sided foot drop and she wears a brace on the foot to which she attributes much of her falls. She is a diabetic. Also has a history of high blood pressure.She is not anticoagulated and did not strike her head. No loss of consciousness Review of Systems Constitutional: reports: Reviewed and negative Ears: reports: Reviewed and negative Nose: reports: Reviewed and negative Throat: reports: Reviewed and negative Cardiac: reports: Reviewed and negative Respiratory: reports: Reviewed and negative GI: reports: Reviewed and negative : reports: Reviewed and negative Skin: reports: Reviewed and negative Musculoskeletal: reports: Back pain Neurologic: reports: Reviewed and negative Psychiatric: reports: Reviewed and negative PD PAST MEDICAL HISTORY - Past Medical History Past Medical History: Yes Cardiovascular: None, Hypertension, High cholesterol, VA, Other Respiratory: COPD, Sleep apnea, CPAP use Neuro: None, Peripheral neuropathy, Tremors, Other Endocrine/Autoimmune: Type 2 diabetes, HyPOthyroidism GI: GERD SHOP DIRECTOR: None : None HEENT: Chronic hearing loss Psych: Depression Musculoskeletal: Osteoarthritis, Scoliosis, Chronic back pain, Other Derm: None - Past Surgical History Past Surgical History: Yes General: Cholecystectomy - Present Medications Home Medications: Ambulatory Orders Medication Instructions Recorded Confirmed Levothyroxine Sodium [Synthroid] 200 mcg PO QDAC 07/10/12 08/04/19 Lisinopril 20 mg PO DAILY 07/10/12 08/04/19 Aspirin [Rosalinda] 81 mg PO DAILY 08/24/14 08/04/19 Cholecalciferol (Vitamin D3) 1,000 units PO DAILY 08/24/14 08/04/19 [Vitamin D] Gabapentin 600 mg PO BID 08/24/14 08/04/19 metFORMIN [Glucophage] 500 mg PO TIDWM 08/24/14 08/04/19 Calcium Carbonate [Calcium] 600 mg PO QDBREAKFAST 12/16/14 08/04/19 Insulin Glargine,Hum.rec.anlog 45 unit SUBQ BID 12/16/14 08/04/19 [Lantus] Ibandronate Sodium [Boniva] 150 mg PO Q30D 12/04/16 08/04/19 Hydrochlorothiazide 12.5 mg PO DAILY 12/10/17 08/04/19 allopurinoL [Allopurinol] 100 mg PO DAILY 07/15/18 08/04/19 Ferrous Sulfate 325 mg PO DAILY 11/09/18 08/04/19 Omeprazole 20 mg PO QDAC 12/02/18 08/04/19 Sertraline HCl 100 mg PO DAILY 12/02/18 08/04/19 Insulin Regular Human [NovoLIN R] 4 unit SUBQ TIDWM 12/15/18 08/04/19 Liraglutide [Victoza 2-Mandeep] 1.2 mg SQ DAILY 12/15/18 08/04/19 Metoprolol Succinate [Toprol Xl] 50 mg PO BID 01/07/19 08/04/19 Spironolactone 25 mg PO DAILY 01/07/19 08/04/19 Spironolactone [Aldactone] 50 mg PO BID 01/13/19 08/04/19 Hydrocodone/Acetaminophen [Foster 1 each PO BID PRN #15 tablet 01/04/20 5-325 Tablet] - Allergies Allergies/Adverse Reactions: Allergies Allergy/AdvReac Type Severity Reaction Status Date / Time No Known Drug Allergies Allergy Verified 01/04/20 13:31 - Social History Does the pt smoke?: No Smoking Status: Former smoker Does the pt drink ETOH?: No Does the pt have substance abuse?: No - Immunizations Immunizations are current?: Yes - POLST Patient has POLST: No POLST Status: Full Code PD ED PE EXPANDED - General General: Alert, In Pain, Other (obese) - Cardiac Cardiac: Regular Rhythm, Radial strong equal, Cap refill < 2 sec - Respiratory Respiratory: Clear to ausultation marie. No: Distress, Labored - Back Back: Vertebral tenderness (Midline tenderness to the lower lumbar spine L4 through the sacral area. No crepitus or erythema. No ecchymosis. Patient is able to lift both of her legs off the bed against resistance though painful.), Soft tissue tenderness Results - Vitals Vitals: Vital Signs - 24 hr 01/04/20 01/04/20 13:31 13:48 Temperature 36.4 C L Heart Rate 64 65 Respiratory 14 16 Rate Blood Pressure 116/31 L 117/43 L O2 Saturation 97 97 Oxygen O2 Source Room air - Rads (name of study) CT lumbar Radiology: Final report received (Acute T12 compression fracture with approximately 60% height loss. Diffuse osseous demineralization with extensive degenerative changes) PD MEDICAL DECISION MAKING - ED course Complexity details: reviewed results, re-evaluated patient, considered differential, d/w patient ED course: 74-year-old female presents to the emergency department with acute low back pain and pain in her coccyx area after a fall this afternoon where she fell directly onto her buttock onto the hardwood floor. She does have a walker at home and typically uses it to walk as she does have known foot drop however she was trying to vacuum when the fall occurred. A CT of the lumbar and sacral area shows an acute T12 compression fracture. These findings were discussed with the patient. Her pain was modestly improved following Toradol in the emergency department and nearly fully abated following Dilaudid. Patient was able to ambulate safely with a walker here in the emergency department. She will be discharged home with the advice to always use her walker when out of bed. I will write a prescription for a very limited number of hydrocodone to be used with extreme caution and schedule flow close follow-up with her primary care pr ovider. Emergent return precautions were discussed Departure - Departure Disposition: 01 Home, Self Care Clinical Impression: Fall Qualifiers: Encounter type: initial encounter Qualified Code(s): W19.XXXA - Unspecified fall, initial encounter T12 compression fracture Qualifiers: Encounter type: initial encounter Qualified Code(s): S22.080A - Wedge compression fracture of T11-T12 vertebra, initial encounter for closed fracture Condition: Stable Record reviewed to determine appropriate education?: Yes Instructions: ED Fx Comp Vertebral Prescriptions: Hydrocodone/Acetaminophen [Foster 5-325 Tablet] 1 each PO BID PRN #15 tablet PRN Reason: Pain Comments: Amira, after your fall today we do see that you do have a T12 compression fracture. You must always use a walker when at home or ambulating out of bed. You should not be vacuuming. Typically these fractures are allowed to heal without any surgery however I do need you to follow-up with your primary care provider. In the long-term referral to a spinal doctor may be warranted. I have prescribed some Vicodin to be used for severe pain only. Please be very cautious using this it may make you sleepy. I would also like you to continue to take the Advil that you were taking at home. If at any point you have numbness or tingling between your legs, cannot poop or pee normally, or have leg weakness please return immediately to the ER
--- NOTE | 2020-01-04 14:30 | CT Report ---
PROCEDURE: LUMBAR SPINE WO INDICATIONS: Fall, rule out fracture TECHNIQUE: Noncontrast 3 mm thick sections acquired from the T12 level to the sacrum. Sagittal and coronal refo rmats were constructed. For radiation dose reduction, the following was used: automated exposure co ntrol, adjustment of mA and/or kV according to patient size. COMPARISON: Lumbar spine radiographs 06/15/2016 FINDINGS: Image quality: Excellent. Bones: Diffuse osseous demineralization. Extensive degenerative changes including multiple lateral sy ndesmophytes and ossification of the anterior longitudinal ligament, findings which create a rigid sp ine predisposing to fracture. There is an acute compression fracture at T12 with superior endplate de pression and comminution. There is approximately 60% height loss centrally. No osseous retropulsion o f fracture fragments. No associated spinal canal or neural foraminal stenosis. Remaining vertebral elmo dy heights maintained. No suspicious lytic or blastic osseous lesion. Severe bilateral neural foramin al narrowing from L2-L3 through L5-S1. Varying degrees of moderate to severe spinal canal stenosis fr om L1-L2 through L5-S1. Soft tissues: No retroperitoneal masses or hematomas. Visualized aorta is normal in caliber. IMPRESSION: Acute T12 compression fracture with approximately 60% height loss. Diffuse osseous demineralization with extensive degenerative changes including multiple diffuse later al syndesmophytes and anterior longitudinal ligament ossification, findings create a rigid spine, pre disposing to fracture. Reviewed by: Filiberto Schmitz MD on 01/04/2020 2:28 PM PST Approved by: Filiberto Schmitz MD on 01/04/2020 2:28 PM PST Station ID: [id number]
[2020-01-04] MEDS ORDERED: HYDROmorphone 1 MG/ML CARPUJECT IVP STA (14:45)
[2020-01-04] MEDS ORDERED: HYDROmorphone 1 MG/ML CARPUJECT IM STA (14:49)
[2020-01-04] MEDS ORDERED: HYDROmorphone 0.5 MG/0.5 ML SYRINGE IM STA (14:52)
[2020-01-04 15:59] VITALS: BP 109/51
== END 2020-01-04 16:08 | disposition home or self-care (01) ==
LOC: EDUNIT# → ED 13:17
DX: S22.080A Wedge compression fracture of T11-T12 vertebra, initial encounter for closed fracture (principal); W01.0XXA Fall on same level from slipping, tripping and stumbling without subsequent striking against object, initial encounter; Y93.E3 Activity, vacuuming; Y92.009 Unspecified place in unspecified non-institutional (private) residence as the place of occurrence of the external cause; M21.372 Foot drop, left foot; Z91.81 History of falling; I10 Essential (primary) hypertension; E11.42 Type 2 diabetes mellitus with diabetic polyneuropathy; Z79.4 Long term (current) use of insulin; Z87.891 Personal history of nicotine dependence
CPT/HCPCS: 72131; 96372; 99283; 99284; J1170

== ENCOUNTER 2020-06-22 06:50 | Outpatient (CLI) | payer MEDICARE, OTHER | END 2020-06-22 06:51 | disposition EMS.NT | LOC: EMS 06:50 | DX: Z03.89 Encounter for observation for other suspected diseases and conditions ruled out (principal) ==

== ENCOUNTER 2020-07-15 02:00 | Outpatient (CLI) | payer MEDICARE, OTHER | END 2020-07-15 02:01 | disposition EMS.NT | LOC: EMS 02:00 | DX: R51.9 Headache, unspecified (principal); R07.81 Pleurodynia ==

== ENCOUNTER 2021-01-25 10:02 | Outpatient (CLI) | payer MEDICARE, OTHER ==
--- NOTE | 2021-01-25 18:51 | XRAY Report ---
PROCEDURE: Knee 3 View LT INDICATIONS: LEFT KNEE PAIN TECHNIQUE: 3 views of the left knee(s) were acquired. COMPARISON: None. FINDINGS: BONES/JOINT: No acute, displaced fracture or dislocation. Small suprapatellar joint effusion. Tricomp artment osteophytosis. The joint spaces are essentially maintained. SOFT TISSUES: No significant abnormality. IMPRESSION: 1.No acute osseous abnormality. Reviewed by: Renny Nugent MD on 01/25/2021 6:49 PM PST Approved by: Renny Nugent MD on 01/25/2021 6:49 PM PST Station ID: [id number]
== END 2021-01-25 10:03 | disposition home or self-care (01) ==
LOC: DI 10:02
PROVIDERS: ATTEND Internal Medicine
DX: M25.562 Pain in left knee (principal)

== ENCOUNTER 2021-02-13 10:45 | Outpatient (CLI) | payer MEDICARE, OTHER ==
[2021-02-13] MEDS ORDERED: IOPAMIDOL-300 50 ML VIAL ONE (11:00)
[2021-02-13] MEDS ORDERED: IOPAMIDOL-300 100 ML VIAL ONE (11:00)
[2021-02-13 12:07] LABS: CREATININE 1.4 mg/dL (0.4-1.0)
[2021-02-13] MEDS ORDERED: IOPAMIDOL-300 100 ML VIAL IVP ONE (13:34)
[2021-02-13] MEDS ORDERED: IOPAMIDOL-300 50 ML VIAL PO ONE (13:34)
--- NOTE | 2021-02-13 16:47 | CT Report ---
PROCEDURE: Abdomen/Pelvis W INDICATIONS: ABD PAIN CONTRAST: IV CONTRAST: Isovue 300 ml: 100 PO CONTRAST: Isovue 300 ml50 TECHNIQUE: After the administration of oral and intravenous contrast, 5 mm thick sections acquired from the diap hragms to the symphysis. 5 mm thick coronal and sagittal reformats were acquired. For radiation dos e reduction, the following was used: automated exposure control, adjustment of mA and/or kV accordin g to patient size. COMPARISON: Reference is made to the lumbar spine dated January 04, 2020. FINDINGS: Inferior chest: No focal consolidation, pleural effusion, or pneumothorax. No cardiomegaly or perica rdial effusion. Gallbladder: Cholecystectomy. Biliary tree: No intrahepatic biliary duct dilatation. Liver: Decreased attenuation, which may reflect hepatic steatosis. Nodular contour, suggesting cirrho sis. Spleen: Innumerable, subsequent hypoattenuating lesions are seen within the spleen. Pancreas: No contour deforming mass or inflammatory change. Fatty replacement. Adrenals: Normal size without masses. Kidneys/ureters: Normal size and morphology. No solid masses or hydronephrosis. Vasculature: No evidence of aneurysm or other significant vascular pathology. Calcified atheromatous change. Lymphatic system: No pathologic enlargement by size criteria. GI/mesentery: No evidence of intestinal obstruction or inflammatory change. The appendix is not well seen. Peritoneum/Retroperitoneum: No free intraperitoneal gas or large collection. Urinary bladder: The urinary bladder is distended with a smooth thin wall. Pelvic organs: No significant abnormality. Bones/soft tissues: Multifocal degenerative change with dextrocurvature. Small fat-containing right ventral hernia (3-57). Fatty atrophy of the rectus muscles. IMPRESSION: 1.Innumerable, subcentimeter hypoattenuating lesions in the spleen, which may reflect an infectious ( i.e. candidiasis or tuberculosis) or neoplastic process. Reviewed by: Renny Nugent MD on 02/13/2021 4:46 PM PST Approved by: Renny Nugent MD on 02/13/2021 4:46 PM PST Station ID: [id number]
== END 2021-02-13 10:46 | disposition home or self-care (01) ==
LOC: DI 10:45
PROVIDERS: ATTEND Internal Medicine
DX: D73.89 Other diseases of spleen (principal); R10.9 Unspecified abdominal pain
CPT/HCPCS: 36415; 74177; 82565; Q9967

== ENCOUNTER 2021-02-27 09:11 | Outpatient (CLI) | payer MEDICARE, OTHER | END 2021-02-27 09:12 | disposition EMS.NT | LOC: EMS 09:11 | DX: Z03.89 Encounter for observation for other suspected diseases and conditions ruled out (principal) ==

== ENCOUNTER 2021-03-04 09:37 | Outpatient (CLI) | payer MEDICARE, OTHER | END 2021-03-04 09:38 | disposition EMS.NT | LOC: EMS 09:37 | DX: Z03.89 Encounter for observation for other suspected diseases and conditions ruled out (principal) ==

== ENCOUNTER 2021-03-06 10:48 | Outpatient (CLI) | payer MEDICARE, OTHER ==
--- NOTE | 2021-03-06 17:39 | XRAY Report ---
PROCEDURE: Ankle 3 View BILAT INDICATIONS: SPRAIN TECHNIQUE: 3 views of left and right ankles were acquired. COMPARISON: X-ray left ankle, 01/1307/26/2018 and 04/09/2017. FINDINGS: Right ankle: No fractures or dislocations. Ankle mortise is normally aligned. Moderate process or changes. Superior peaking osteophytes at the talonavicular joint. No tibiotalar joint effusion. Achi lles tendon appears normal. Mild soft tissue swelling in ankles bilaterally. Left ankle: No fractures or dislocations. Ankle mortise is normally aligned. Moderate to severe ost eophytic changes. There are large beaking osteophytes superior to the talonavicular joint. Calcaneal spurring. No tibiotalar joint effusion. Achilles tendon appears normal. Mild soft tissue swelling i n ankles bilaterally. IMPRESSION: 1. No fracture or dislocation. 2. Osteoarthritis bilaterally, left greater than right. 3. Left plantar calcaneal spurring. Reviewed by: Keesha Tariq MD on 03/06/2021 5:37 PM PST Approved by: Keesha Tariq MD on 03/06/2021 5:37 PM PST Station ID: [id number]
--- NOTE | 2021-03-06 17:39 | XRAY Report ---
PROCEDURE: Foot 3 View BILAT INDICATIONS: SPRAIN TECHNIQUE: 2 views of the right foot and 2 view of the left were acquired. COMPARISON: X-ray of ankles bilaterally, 03/06/2021. X-ray left ankle, 04/09/2017. X-ray left foot, . FINDINGS: Right foot: Hammertoes of the second, third, third and fourth digits. No fractures or dislocations. No suspicious bony lesions. There is mild osteopenia. There are prominent osteophytes superior to t he talonavicular joint. Moderate degenerative joint disease involving the intertarsal joints, first t arsometatarsal joint, first metacarpophalangeal joint and multiple interphalangeal joints. No tibiota lar joint effusion. Achilles tendon appears normal. Mild dorsal soft tissue swelling. Left foot: There is a surgical pin traversing the second proximal and distal interphalangeal joints. Hammertoes of the second, third, third and fourth digits. No fractures or dislocations. No suspicio us bony lesions. There is osteopenia. There is a large osteophyte superior to the talonavicular join t. Moderate degenerative joint disease is present involving the intertarsal joints, first and second tarsometatarsal joints, first and second metacarpophalangeal joints and interphalangeal joints. Calca travis spurring. No tibiotalar joint effusion. Achilles tendon appears normal. Mild dorsal soft tiss ue swelling. IMPRESSION: 1. Postsurgical changes of the left second toe with a surgical pin traversing the second proximal and distal interphalangeal joints. 2. Hammertoes bilaterally. 3. Severe talonavicular joint degeneration bilaterally, left greater than right. 4. Moderate degenerative joint disease in feet bilaterally. 5. Left calcaneal spurring. Reviewed by: Keesha Tariq MD on 03/06/2021 5:38 PM PST Approved by: Keesha Tariq MD on 03/06/2021 5:38 PM PST Station ID: [id number]
== END 2021-03-06 10:49 | disposition home or self-care (01) ==
LOC: DI 10:48
PROVIDERS: ATTEND Internal Medicine
DX: S93.692A Other sprain of left foot, initial encounter (principal); S93.691A Other sprain of right foot, initial encounter; S93.699A Other sprain of unspecified foot, initial encounter; S93.601A Unspecified sprain of right foot, initial encounter; S93.602A Unspecified sprain of left foot, initial encounter; M20.42 Other hammer toe(s) (acquired), left foot; M20.41 Other hammer toe(s) (acquired), right foot; M19.072 Primary osteoarthritis, left ankle and foot; M19.071 Primary osteoarthritis, right ankle and foot; M77.32 Calcaneal spur, left foot

== ENCOUNTER 2021-03-24 17:07 | Outpatient (CLI) | payer MEDICARE, OTHER | END 2021-03-24 17:08 | disposition EMS.NT | LOC: EMS 17:07 | DX: Z03.89 Encounter for observation for other suspected diseases and conditions ruled out (principal) ==

== ENCOUNTER 2021-04-29 19:09 | Outpatient (CLI) | payer MEDICARE, OTHER | END 2021-04-29 19:10 | disposition critical access hospital (66) | LOC: EMS 19:09 | DX: M54.50 Low back pain, unspecified (principal); S00.81XA Abrasion of other part of head, initial encounter; W01.0XXA Fall on same level from slipping, tripping and stumbling without subsequent striking against object, initial encounter; Y92.003 Bedroom of unspecified non-institutional (private) residence as the place of occurrence of the external cause | CPT/HCPCS: A0425; A0429 ==

== ENCOUNTER 2021-04-29 19:28 | Emergency (ER) | payer MEDICARE, OTHER ==
[2021-04-29] MEDS ORDERED: ACETAMINOPHEN 325 MG TABLET PO STA (19:36)
[2021-04-29] MEDS ORDERED: oxyCODONE 5 MG TABLET PO STA (19:36)
--- NOTE | 2021-04-29 19:37 | ED Physician Documentation ---
History of Present Illness - Stated complaint Stated Complaint: GLF, HEAD ABRASION, BACK PAIN, NAUSEA - Chief complaint Chief Complaint: Laceration - History obtained from History obtained from: Patient, EMS - Additonal information Additional information: 75-year-old woman with diabetes, cerebral palsy. She has frequent falls and uses a walker. She fell 2 weeks ago and exacerbated some chronic back pain that got even worse today after a fall. The mechanism of the fall was that basically she just tripped over her own toes. She hit her head but denies headache or loss of consciousness. She is not anticoagulated. No other injuries. 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 HEENT: Chronic hearing loss Psych: Depression Musculoskeletal: Osteoarthritis, Scoliosis, Chronic back pain, Other Derm: None - Past Surgical History Past Surgical History: Yes General: Cholecystectomy - Present Medications Home Medications: Ambulatory Orders Medication Instructions Recorded Confirmed Levothyroxine Sodium [Synthroid] 200 mcg PO QDAC 07/10/12 04/29/21 Lisinopril 20 mg PO DAILY 07/10/12 04/29/21 Aspirin [Rosalinda] 81 mg PO DAILY 08/24/14 04/29/21 Cholecalciferol (Vitamin D3) 1,000 units PO BID 08/24/14 04/29/21 [Vitamin D] Gabapentin 300 mg PO HS 08/24/14 04/29/21 metFORMIN [Glucophage] 500 mg PO BID 08/24/14 04/29/21 Calcium Carbonate [Calcium] 600 mg PO BID 12/16/14 04/29/21 Insulin Glargine,Hum.rec.anlog 45 unit SUBQ BID 12/16/14 04/29/21 [Lantus] allopurinoL [Allopurinol] 100 mg PO DAILY 07/15/18 04/29/21 Ferrous Sulfate 325 mg PO DAILY 11/09/18 04/29/21 Omeprazole 20 mg PO QDAC 12/02/18 04/29/21 Sertraline HCl 100 mg PO DAILY 12/02/18 04/29/21 Insulin Regular Human [NovoLIN R] 4 unit SUBQ TIDWM 12/15/18 04/29/21 Metoprolol Succinate [Toprol Xl] 25 mg PO BID 01/07/19 04/29/21 Spironolactone 25 mg PO DAILY 01/07/19 04/29/21 Furosemide [Lasix] 20 mg PO DAILY 04/29/21 04/29/21 Oxycodone HCl/Acetaminophen 1 - 2 each PO Q6H PRN #14 tablet 04/29/21 [Percocet 5-325 mg Tablet] Propranolol [Inderal] 10 mg PO TID 04/29/21 04/29/21 Sertraline [Zoloft] 75 mg PO HS 04/29/21 04/29/21 Simvastatin [Zocor] 20 mg PO HS 04/29/21 04/29/21 - Allergies Allergies/Adverse Reactions: Allergies Allergy/AdvReac Type Severity Reaction Status Date / Time No Known Drug Allergies Allergy Verified 04/29/21 19:39 - Social History Does the pt smoke?: No Smoking Status: Former smoker Does the pt drink ETOH?: No Does the pt have substance abuse?: No - Immunizations Immunizations are current?: Yes - POLST Patient has POLST: No POLST Status: Full Code PD ED PE NORMAL - Vitals Vital signs reviewed: Yes - General General: Alert and oriented X 3, No acute distress - HEENT HEENT: PERRL, EOMI - Neck Neck: Supple, no meningeal sign, No bony TTP - Cardiac Cardiac: RRR, No murmur - Respiratory Respiratory: No respiratory distress, Clear bilaterally - Abdomen Abdomen: Non tender - Back Back: Other (Tender over the lower thoracic and upper lumbar spine. Extensive surgical incision over the lumbar spine. No cervical spine tenderness.) - Extremities Extremities: No deformity, No tenderness to palpate, Normal ROM s pain - Neuro Neuro: Alert and oriented X 3, No motor deficit, No sensory deficit, Normal speech Results - Vitals Vitals: Vital Signs - 24 hr 04/29/21 19:35 Temperature 36.6 C Heart Rate 68 Respiratory 18 Rate Blood Pressure 129/52 L O2 Saturation 99 Oxygen O2 Source Room air - Rads (name of study) CT of the thoracic and lumbar spine shows severe chronic changes and a chronic T12 fracture, nothing appearing acute. Radiology: EMP read contemporaneously PD MEDICAL DECISION MAKING - ED course ED course: 75-year-old woman with chronic mobility problems presents after a ground-level fall with increased over her usual back pain. After the administration of oxycodone and a CT showing no acute changes in her low back, she was able to pass a road test and had no neurologic complaints and her pain was controlled. Departure - Departure Disposition: 01 Home, Self Care Clinical Impression: Fall from ground level, Back contusion, Fall due to stumbling Condition: Stable Record reviewed to determine appropriate education?: Yes Instructions: Falls Prevent Home, ED Mechanical Fall Prescriptions: Oxycodone HCl/Acetaminophen [Percocet 5-325 mg Tablet] 1 - 2 each PO Q6H PRN #14 tablet PRN Reason: pain Comments: I sent your prescription electronically to [facility] in [place]. Call your doctor to arrange a follow-up appointment, make the next available appointment. In the interim, return anytime if worse or if new symptoms develop. I am prescribing a short course of narcotic pain medication for you. These are potentially dangerous and addictive medications that should be used carefully. These medications may constipate you. Take an bqae-twd-chtipbo stool softener (docusate) twice daily with plenty of water while taking these medications. If you go 24 hours without a bowel movement, take [id number]-[id number] miralax, per package instructions. Do not drink or drive while taking these medications. If you received narcotic or sedating medications while in the emergency department, do not drive for 24 hours. Store this medication in a safe, secure place and out of reach of children. It is a violation of federal law to give or sell this medication to another person or to use in a manner other than prescribed. The ED will not refill narcotic prescriptions, including prescriptions lost or stolen. To dispose of unwanted medications: 1. [facility] at [address] in [place] has a medication drop box. They accept prescription medications (in pill form) Friday through Friday 9:00 a.m. to 5:00 p.m. 2. [facility] accepts prescription medications (in pill form only) for disposal year round. Call for more information. 3. Contact the [facility] for the next [facility] sponsored prescription drug collection event. , [phone], or [phone]; Note that many narcotic pain relievers also contain Tylenol/acetaminophen. Please ensure that your total dose of acetaminophen from all sources does not exceed 3 g (3000 mg) per day.
[2021-04-29 19:41] VITALS: BP 129/52
--- NOTE | 2021-04-29 21:02 | CT Report ---
PROCEDURE: THORACIC SPINE WO INDICATIONS: Back injury TECHNIQUE: Noncontrast 3 mm thick sections acquired through the region of interest in the thoracic spine. Sagit paul and coronal reformats were then constructed. For radiation dose reduction, the following was used : automated exposure control, adjustment of mA and/or kV according to patient size. COMPARISON: None. FINDINGS: Image quality: Excellent. Bones: There is generalized osteopenia. Chronic appearing moderate T12 compression fracture is seen with focal kyphosis and levoconvex curvature at the T11-12 level. There appears to be signs of healin g including osseous bridging along the right lateral aspect of the T11-12 disc space. No acute thorac ic spine compression fracture is seen. Multilevel degenerative changes are seen with flowing osteophy zach or syndesmophytes anteriorly. Degenerative changes are seen in the facets. suspicious sclerotic o r lytic bony lesions. Central spinal canal is of normal overall caliber. Soft tissues: No paravertebral masses or hematomas. Visualized posteromedial lungs appear clear. T hyroid appears diminutive and is not well seen. Grade 2 fatty infiltration of the paraspinous muscula ture is noted. Mild aortic atherosclerotic calcifications IMPRESSION: 1.No acute osseous fracture. Generalized osteopenia. 2.Chronic T12 compression fracture with healing changes including osseous fusion across the T11-12 di sc space. There is associated focal kyphosis and levoconvex curvature. Reviewed by: Bertin Garcia MD on 04/29/2021 9:01 PM PST Approved by: Bertin Garcia MD on 04/29/2021 9:01 PM PST Station ID: [id number]
--- NOTE | 2021-04-29 21:08 | CT Report ---
PROCEDURE: LUMBAR SPINE WO INDICATIONS: Back injury TECHNIQUE: Noncontrast 3 mm thick sections acquired from the T12 level to the sacrum. Sagittal and coronal refo rmats were constructed. For radiation dose reduction, the following was used: automated exposure co ntrol, adjustment of mA and/or kV according to patient size. COMPARISON: CT lumbar spine 01/04/2020. FINDINGS: Image quality: Excellent. Bones: There is generalized osteopenia. Chronic moderate T12 compression fracture involving the righ t portion of the superior endplate with chronic osseous fusion across the T11-12 disc space. Chronic fusion is also noted across the L2-3 disc space. No acute vertebral body compression fracture is seen . There is predominantly dextroconvex curvature of the lumbar spine centered at the L1-2 level. No galo spicious lytic or blastic bony lesions. Multilevel disc space narrowing, degenerative endplate change s, and prominent facet hypertrophy are seen throughout the lumbar spine. Findings again results in se kenya bilateral neural foraminal narrowing involving nearly every level. Postsurgical changes are seen from laminectomies at the L4-5 and L5-S1 levels. Multilevel moderate to severe neural foraminal narr owing does not appear significant changed, worst at the L3-4 level. Soft tissues: No retroperitoneal masses or hematomas. Grade 2 fatty infiltration of the paraspinous musculature. Moderate aortic atherosclerotic calcifications. IMPRESSION: 1.No acute lumbar spine compression fracture. Generalized osteopenia. 2.Chronic T12 compression fracture. 3.Multilevel moderate to severe degenerative changes throughout the lumbar spine, not significantly c hanged when compared to the exam from 01/04/2020. Reviewed by: Bertin Garcia MD on 04/29/2021 9:07 PM PST Approved by: Bertin Garcia MD on 04/29/2021 9:07 PM PST Station ID: [id number]
[2021-04-29] MEDS ORDERED: oxyCODONE/ACET 5/325 Prepack 4 PO STA (21:42)
== END 2021-04-29 21:54 | disposition home or self-care (01) ==
LOC: EDUNIT# → ED 19:28
DX: S30.0XXA Contusion of lower back and pelvis, initial encounter (principal); W01.0XXA Fall on same level from slipping, tripping and stumbling without subsequent striking against object, initial encounter; Z87.891 Personal history of nicotine dependence
CPT/HCPCS: 72128; 72131; 99282; 99284; A9270

== ENCOUNTER 2021-12-04 06:30 | Outpatient (CLI) | payer MEDICARE, OTHER | END 2021-12-04 06:31 | disposition critical access hospital (66) | LOC: EMS 06:30 | DX: M25.461 Effusion, right knee (principal); W01.0XXA Fall on same level from slipping, tripping and stumbling without subsequent striking against object, initial encounter; Y93.01 Activity, walking, marching and hiking; Y92.000 Kitchen of unspecified non-institutional (private) residence as the place of occurrence of the external cause | CPT/HCPCS: A0425; A0429 ==

== ENCOUNTER 2021-12-04 06:51 | Emergency (ER) | payer MEDICARE, OTHER ==
[2021-12-04] MEDS ORDERED: ACETAMINOPHEN 500 MG TABLET PO STA (06:56)
--- NOTE | 2021-12-04 07:25 | ED Physician Documentation ---
PD HPI LOWER EXT INJURY - Stated complaint Stated Complaint: KNEE PX - Chief complaint Chief Complaint: Ext Problem - History obtained from History obtained from: Patient, EMS - Additional information Additional information: She got up to let her dog out and had a trip and fall directly onto the right knee. She has no pain at rest but severe pain with movement or with attempted ambulation, with which she was unsuccessful. No other injuries. 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 HEENT: Chronic hearing loss, Other Psych: Depression, Anxiety Musculoskeletal: Osteoarthritis, Scoliosis, Chronic back pain, Other Derm: None - Past Surgical History Past Surgical History: Yes General: Cholecystectomy HEENT: Cataracts - Present Medications Home Medications: Ambulatory Orders Medication Instructions Recorded Confirmed Levothyroxine Sodium [Synthroid] 200 mcg PO QDAC 07/10/12 12/04/21 Lisinopril 20 mg PO DAILY 07/10/12 12/04/21 Aspirin [Rosalinda] 81 mg PO DAILY 08/24/14 10/31/21 Cholecalciferol (Vitamin D3) 1,000 units PO BID 08/24/14 10/31/21 [Vitamin D] Gabapentin 600 mg PO BID 08/24/14 12/04/21 metFORMIN [Glucophage] 500 mg PO BID 08/24/14 12/04/21 Calcium Carbonate [Calcium] 600 mg PO BID 12/16/14 10/31/21 Insulin Glargine,Hum.rec.anlog 45 unit SUBQ BID 12/16/14 10/31/21 [Lantus] allopurinoL [Allopurinol] 100 mg PO DAILY 07/15/18 12/04/21 Ferrous Sulfate 325 mg PO DAILY 11/09/18 10/31/21 Omeprazole 20 mg PO QDAC 12/02/18 12/04/21 Insulin Regular Human [NovoLIN R] 4 unit SUBQ TIDWM 12/15/18 10/31/21 Metoprolol Succinate [Toprol Xl] 25 mg PO BID 01/07/19 10/31/21 Spironolactone 25 mg PO DAILY 01/07/19 12/04/21 Furosemide [Lasix] 20 mg PO DAILY 04/29/21 10/31/21 Propranolol [Inderal] 10 mg PO TID 04/29/21 12/04/21 Simvastatin [Zocor] 20 mg PO HS 04/29/21 12/04/21 Sertraline HCl 100 mg PO DAILY 12/04/21 12/04/21 Wheelchair 1 unit TD ONCE #1 appful 12/04/21 - Allergies Allergies/Adverse Reactions: Allergies Allergy/AdvReac Type Severity Reaction Status Date / Time No Known Drug Allergies Allergy Verified 04/29/21 19:39 - Social History Does the pt smoke?: No Smoking Status: Former smoker Does the pt drink ETOH?: No Does the pt have substance abuse?: No - Family History Family history: reports: Non contributory - Immunizations Immunizations are current?: Yes - POLST Patient has POLST: No POLST Status: Full Code PD ED PE NORMAL - Vitals Vital signs reviewed: Yes - General General: Alert and oriented X 3, No acute distress - HEENT HEENT: PERRL, EOMI - Neck Neck: Supple, no meningeal sign, No bony TTP - Cardiac Cardiac: RRR, No murmur - Respiratory Respiratory: No respiratory distress, Clear bilaterally - Abdomen Abdomen: Normal bowel sounds, Soft, Non tender - Back Back: No CVA TTP, No spinal TTP - Derm Derm: Normal color, Warm and dry - Extremities Extremities: Other (Quite tender to the superomedial part of the right knee with swelling and early bruising. Unable to range it. The hip and ankle are nontender on the right side. Normal pedal pulses.) - Neuro Neuro: Alert and oriented X 3, Normal speech Results - Vitals Vitals: Vital Signs - 24 hr 12/04/21 12/04/21 07:00 08:36 Temperature 37.2 C Heart Rate 67 60 Respiratory 18 14 Rate Blood Pressure 133/56 H 118/59 L O2 Saturation 99 97 Oxygen O2 Source Room air - Rads (name of study) R knee XR Radiology: EMP read contemporaneously (Comminuted and mildly displaced patellar fracture with suspected femoral fracture also.) CT R knee Radiology: EMP read contemporaneously (Nondisplaced distal femur frx, patella frx, large lipohemarthrosis, mod-severe DJD and osteopenia) PD MEDICAL DECISION MAKING - ED course ED course: 76-year-old woman presents with an isolated right knee injury, suspicious x-ray and distal femur and patellar fractures proven on CT. Case discussed by phone with our on-call orthopedic data center consultant, Dr. Umana who reviewed the images and feels these are nonoperative simply nonweightbearing fractures. Patient feeling comfortable to go home with no weightbearing on the right leg in a splint. Departure - Departure Disposition: Home, Self Care Clinical Impression: Right patella fracture Qualifiers: Encounter type: initial encounter Fracture type: closed Fracture morphology: unspecified fracture morphology Fracture alignment: displaced Qualified Code(s): S82.001A - Unspecified fracture of right patella, initial encounter for closed fracture Femur fracture, right Qualifiers: Encounter type: initial encounter Femur location: distal, unspecified portion Fracture type: closed Fracture morphology: unspecified fracture morphology Qualified Code(s): S72.401A - Unspecified fracture of lower end of right femur, initial encounter for closed fracture Condition: Stable Record reviewed to determine appropriate education?: Yes Instructions: ED Fx Patella Follow-Up: Orthopedic Care [Provider Group] Prescriptions: Wheelchair 1 unit TD ONCE #1 appful Comments: You do have fractures above and in the right knee. According to our orthopedic consultants, this will not need operation. You should keep the splint on and not bear weight until he advises you it is safe to do so. Tylenol 2 extra strength every 6 hours as needed for pain. You should follow-up in his office, call today for an appointment. The numbers on this form.
--- NOTE | 2021-12-04 08:21 | XRAY Report ---
PROCEDURE: Knee 3 View RT INDICATIONS: GLF, R KNEE SWELLING/PAIN TECHNIQUE: 3 views of the right knee(s) were acquired. COMPARISON: None. FINDINGS: Mildly displaced and comminuted right patellar fracture with lipohemarthrosis. There are lucencies th rough the distal femur which are suggestive of condylar fractures with possible intra-articular exten josi, evaluation limited by the lack of oblique view. IMPRESSION: Comminuted and mildly displaced patellar fracture with suspected femoral fracture also. CT of the kne e recommended. Reviewed by: Filiberto Schmitz MD on 12/04/2021 8:20 AM PDT Approved by: Filiberto Schmitz MD on 12/04/2021 8:20 AM PDT Station ID: [id number]
--- NOTE | 2021-12-04 08:25 | CT Report ---
PROCEDURE: LOWER EXTREMITY WO - RT INDICATIONS: fall, knee pain, suspect distal femur frx on xr TECHNIQUE: Noncontrast 3-mm axial sections acquired from the distal tibial shaft to the talar dome, with coronal and sagittal reformats. For radiation dose reduction, the following was used: automated exposure c ontrol, adjustment of mA and/or kV according to patient size. COMPARISON: Right knee radiograph from the same day. FINDINGS: Image quality: Excellent. Bones: Alignment of right knee is anatomic. There is an oblique fracture through the medial portion of distal femoral shaft extending to involve medial femoral condyle with fracture line extending to i ntercondylar notch. No significant displacement is noted at the fracture site. There is also an obliq ue fracture involving lateral portion of the patella with minimal lateral displacement of the fractur ed fragment. Moderate to severe tricompartmental osteoarthritis is seen most prominent in medial femo ral tibial compartment with joint space narrowing, subchondral sclerosis and prominent marginal osteo phyte formation. Diffuse osteopenia is also seen. No other fracture or dislocation is noted. No suspi cious bony lesion. There is lateral tilt of patella. Soft tissues: Moderate to large lipohemarthrosis is seen. No calcified intra-articular loose bodies. Distal quadriceps tendon and patellar tendon are grossly intact. Anterior and posterior cruciate lig aments are not well seen on this study. No abnormal soft tissue calcifications. No large popliteal cy st is seen. Impression: 1. Nondisplaced oblique fracture through medial aspect of distal femur and medial femoral condyle ext ending to intercondylar notch. 2. Minimally displaced fracture involving inferior and lateral portion of patella. 3. Moderate to large lipohemarthrosis. No calcified intra-articular loose bodies. 4. Moderate to severe tricompartmental osteoarthritis and diffuse osteopenia. Reviewed by: Tunde Somers MD on 12/04/2021 8:24 AM PDT Approved by: Tunde Somers MD on 12/04/2021 8:24 AM PDT Station ID: [id number]
[2021-12-04 08:38] VITALS: BP 118/59
== END 2021-12-04 09:06 | disposition home or self-care (01) ==
LOC: EDUNIT# → ED 06:51
DX: S82.001A Unspecified fracture of right patella, initial encounter for closed fracture (principal); S72.401A Unspecified fracture of lower end of right femur, initial encounter for closed fracture; W18.31XA Fall on same level due to stepping on an object, initial encounter; Y93.K1 Activity, walking an animal; E11.9 Type 2 diabetes mellitus without complications; Z79.4 Long term (current) use of insulin; Z79.84 Long term (current) use of oral hypoglycemic drugs; I10 Essential (primary) hypertension
CPT/HCPCS: 73562; 73700; 99283; 99284; A9270

== ENCOUNTER 2021-12-07 14:08 | Outpatient (CLI) | payer MEDICARE, OTHER | END 2021-12-07 14:09 | disposition EMS.NT | LOC: EMS 14:08 | DX: Z76.89 Persons encountering health services in other specified circumstances (principal) ==

== ENCOUNTER 2021-12-11 10:44 | Emergency (ER) | payer MEDICARE, OTHER ==
[2021-12-11 10:55] VITALS: BP 138/95
--- NOTE | 2021-12-11 11:52 | XRAY Report ---
PROCEDURE: Knee 4 View RT INDICATIONS: Trauma TECHNIQUE: 4 views of the right knee(s) were acquired. COMPARISON: None. FINDINGS: Bones: Mildly displaced, comminuted patellar fracture is present. There appears to be slight height loss within the lateral tibial plateau compared to prior exam. No suspicious bony lesions. Soft tissues: No joint effusion. No suspicious soft tissue calcifications. IMPRESSION: Persistent appearance of comminuted and mildly displaced patellar fracture. Mild appearance of height loss within the lateral tibial plateau compared to prior exam. Fracture can not be excluded and CT knee is recommended. Reviewed by: Enma Leyva MD on 12/11/2021 11:51 AM PDT Approved by: Enma Leyva MD on 12/11/2021 11:51 AM PDT Station ID: [id number]
== END 2021-12-11 15:10 | disposition left against medical advice (07) ==
LOC: ED 10:44
DX: Z53.21 Procedure and treatment not carried out due to patient leaving prior to being seen by health care provider (principal)

== ENCOUNTER 2021-12-14 11:26 | Outpatient (CLI) | payer MEDICARE, OTHER | END 2021-12-14 11:27 | disposition critical access hospital (66) | LOC: EMS 11:26 | DX: R53.1 Weakness (principal); R63.8 Other symptoms and signs concerning food and fluid intake; R32 Unspecified urinary incontinence; E11.65 Type 2 diabetes mellitus with hyperglycemia | CPT/HCPCS: A0425; A0429 ==

== ENCOUNTER 2021-12-14 11:45 | Emergency (ER) | payer MEDICARE, OTHER ==
--- NOTE | 2021-12-14 12:17 | XRAY Report ---
PROCEDURE: Chest 1 View X-Ray INDICATIONS: chest pain TECHNIQUE: One view of the chest was acquired. COMPARISON: Chest x-ray 12/03/2018 FINDINGS: Surgical changes and devices: None. Lungs and pleura: No pleural effusions or pneumothorax. Lungs are clear. Mediastinum: Mediastinal contours appear normal. Heart size is mildly prominent. Bones and chest wall: No suspicious bony lesions. Overlying soft tissues appear unremarkable. IMPRESSION: No acute pulmonary process. Reviewed by: Enma Leyva MD on 12/14/2021 12:16 PM PDT Approved by: Enma Leyva MD on 12/14/2021 12:16 PM PDT Station ID: [id number]
[2021-12-14 12:31] LABS: BASOPHILS # (AUTO) 0.1 10^3/uL (0.0-0.1); BASOPHILS % (AUTO) 0.5 %; EOSINOPHILS # (AUTO) 0.1 10^3/uL (0.0-0.7); EOSINOPHILS % (AUTO) 0.5 %; HCT - HEMATOCRIT 36.4 % (37.0-47.0); HGB - HEMOGLOBIN 11.8 g/dL (12.0-16.0); LYMPHOCYTES # (AUTO) 1.6 10^3/uL (1.5-3.5); LYMPHOCYTES % (AUTO) 10.9 %; MEAN CORPUSCULAR HEMOGLOBIN 31.6 pg (27.0-31.0); MEAN CORPUSCULAR HGB CONC 32.4 g/dL (32.0-36.0); MEAN CORPUSCULAR VOLUME 97.3 fL (81.0-99.0); MEAN PLATELET VOLUME 10.5 fL (7.9-10.8); MONOCYTES # (AUTO) 0.9 10^3/uL (0.0-1.0); MONOCYTES % (AUTO) 6.2 %; NEUTROPHILS % (AUTO) 81.4 %; PLT - PLATELET COUNT 350 10^3/uL (130-450); RED BLOOD COUNT 3.74 10^6/uL (4.20-5.40); RED CELL DISTRIBUTION WIDTH 13.8 % (12.0-15.0); WHITE BLOOD COUNT 14.7 x10^3/uL (4.8-10.8)
[2021-12-14 12:44] LABS: ALBUMIN 3.4 g/dL (3.2-5.5); ALBUMIN/GLOBULIN RATIO 0.7 (1.0-2.2); CALCIUM 10.2 mg/dL (8.5-10.3); CREATININE 1.4 mg/dL (0.4-1.0); POTASSIUM 4.8 mmol/L (3.5-5.0); TOTAL PROTEIN 8.6 g/dL (6.7-8.2)
--- NOTE | 2021-12-14 14:23 | ED Physician Documentation ---
History of Present Illness - Stated complaint Stated Complaint: FTT - Chief complaint Chief Complaint: General - History obtained from History obtained from: Patient, Family - Additonal information Additional information: PT is brought to the ED by EMS after being sent here by her PCP to see SW. The pt has a lower extemity fx and is morbidly obese, and family has been having a hard time trying to care for her at home. Pt states she can't use crutches. SHe denies any fevers, cough, CP, SOB, abd pain, or vomiting. No other complaints at this time. Review of Systems Ten Systems: 10 systems reviewed and negative Constitutional: reports: Reviewed and negative Eyes: reports: Reviewed and negative Ears: reports: Reviewed and negative Nose: reports: Reviewed and negative Throat: reports: Reviewed and negative Cardiac: reports: Reviewed and negative Respiratory: reports: Reviewed and negative GI: reports: Reviewed and negative : reports: Reviewed and negative Skin: reports: Reviewed and negative Musculoskeletal: reports: Reviewed and negative Neurologic: reports: Reviewed and negative Psychiatric: reports: Reviewed and negative Endocrine: reports: Reviewed and negative Immunocompromised: reports: Reviewed and negative PD PAST MEDICAL HISTORY - Past Medical History Cardiovascular: Hypertension, High cholesterol, Coronary artery disease, CT, Other Respiratory: COPD, Sleep apnea, CPAP use Neuro: Peripheral neuropathy, Tremors, Other Endocrine/Autoimmune: Type 2 diabetes, HyPOthyroidism GI: GERD 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 HEENT: Chronic hearing loss, Other Psych: Depression, Anxiety Musculoskeletal: Osteoarthritis, Scoliosis, Chronic back pain, Other Derm: None - Past Surgical History Past Surgical History: Yes General: Cholecystectomy HEENT: Cataracts - Present Medications Home Medications: Ambulatory Orders Medication Instructions Recorded Confirmed Levothyroxine Sodium [Synthroid] 200 mcg PO QDAC 07/10/12 12/04/21 Lisinopril 20 mg PO DAILY 07/10/12 12/04/21 Aspirin [Rosalinda] 81 mg PO DAILY 08/24/14 10/31/21 Cholecalciferol (Vitamin D3) 1,000 units PO BID 08/24/14 10/31/21 [Vitamin D] Gabapentin 600 mg PO BID 08/24/14 12/04/21 metFORMIN [Glucophage] 500 mg PO BID 08/24/14 12/04/21 Calcium Carbonate [Calcium] 600 mg PO BID 12/16/14 10/31/21 Insulin Glargine,Hum.rec.anlog 45 unit SUBQ BID 12/16/14 10/31/21 [Lantus] allopurinoL [Allopurinol] 100 mg PO DAILY 07/15/18 12/04/21 Ferrous Sulfate 325 mg PO DAILY 11/09/18 10/31/21 Omeprazole 20 mg PO QDAC 12/02/18 12/04/21 Insulin Regular Human [NovoLIN R] 4 unit SUBQ TIDWM 12/15/18 10/31/21 Metoprolol Succinate [Toprol Xl] 25 mg PO BID 01/07/19 10/31/21 Spironolactone 25 mg PO DAILY 01/07/19 12/04/21 Furosemide [Lasix] 20 mg PO DAILY 04/29/21 10/31/21 Propranolol [Inderal] 10 mg PO TID 04/29/21 12/04/21 Simvastatin [Zocor] 20 mg PO HS 04/29/21 12/04/21 Sertraline HCl 100 mg PO DAILY 12/04/21 12/04/21 Wheelchair 1 unit TD ONCE #1 appful 12/04/21 - Allergies Allergies/Adverse Reactions: Allergies Allergy/AdvReac Type Severity Reaction Status Date / Time No Known Drug Allergies Allergy Verified 04/29/21 19:39 - Social History Does the pt smoke?: No Smoking Status: Former smoker Does the pt drink ETOH?: No Does the pt have substance abuse?: No - Immunizations Immunizations are current?: Yes - POLST Patient has POLST: No POLST Status: Full Code PD ED PE NORMAL - Vitals Vital signs reviewed: Yes - General General: Alert and oriented X 3, No acute distress, Well developed/nourished, Other (morbidly obese) - HEENT HEENT: Atraumatic, PERRL, EOMI, Moist mucous membranes - Neck Neck: Supple, no meningeal sign - Cardiac Cardiac: RRR, No murmur - Respiratory Respiratory: No respiratory distress, Clear bilaterally - Abdomen Abdomen: Soft, Non tender, Non distended - Derm Derm: Warm and dry - Extremities Extremities: No deformity, Other (Knee brace in place RLE) - Neuro Neuro: Alert and oriented X 3 - Psych Psych: Normal mood, Normal affect Results - Vitals Vitals: Oxygen O2 Source Room air - EKG (time done) 1154 Rate: Rate (enter#) (121) Rhythm: Atrial fibrillation [place]od[place]: Normal QRS: Normal Ischemia: Normal ST segments, Non specific changes Compare to prior EKG: Old EKG unavailable Computer interpretation: Agree with computer - Labs Labs: Laboratory Tests 12/14/21 12/14/21 12/14/21 12:00 12:25 12:25 WBC 14.7 H RBC 3.74 L Hgb 11.8 L Hct 36.4 L MCV 97.3 MCH 31.6 H MCHC 32.4 RDW 13.8 Plt Count 350 MPV 10.5 Neut # (Auto) 12.0 H Lymph # (Auto) 1.6 Moody # (Auto) 0.9 Eos # (Auto) 0.1 Baso # (Auto) 0.1 Absolute Nucleated RBC 0.00 Nucleated RBC % 0.0 Sodium 133 L Potassium 4.8 Chloride 102 Carbon Dioxide 19 L Anion Gap 12.0 BUN 58 H Creatinine 1.4 H Estimated GFR (MDRD) 36 L Glucose 470 H Calcium 10.2 Total Bilirubin 1.0 AST 16 ALT 15 Alkaline Phosphatase 82 Total Protein 8.6 H Albumin 3.4 Globulin 5.2 H Albumin/Globulin Ratio 0.7 L Lipase 31 Nasal Adenovirus (PCR) NOT DETECTED Nasal B. parapertussis DNA (PCR) NOT DETECTED Nasal Coronavir 229E PCR NOT DETECTED Nasal Coronavir HKU1 PCR NOT DETECTED Nasal Coronavir NL63 PCR NOT DETECTED Nasal Coronavir OC43 PCR NOT DETECTED Nasal Enterovir/Rhinovir PCR NOT DETECTED Nasal Influenza B PCR NOT DETECTED Nasal Influenza A PCR NOT DETECTED Nasal Parainfluen 1 PCR NOT DETECTED Nasal Parainfluen 2 PCR NOT DETECTED Nasal Parainfluen 3 PCR NOT DETECTED Nasal Parainfluen 4 PCR NOT DETECTED Nasal RSV (PCR) NOT DETECTED Nasal B.pertussis DNA PCR NOT DETECTED Nasal C.pneumoniae (PCR) NOT DETECTED Addi Human Metapneumo PCR NOT DETECTED Nasal M.pneumoniae (PCR) NOT DETECTED Nasal SARS-CoV-2 (PCR) NOT DETECTED - Rads (name of study) CXR Radiology: Final report received, EMP read indepedently, See rad report (neg) PD MEDICAL DECISION MAKING - ED course Complexity details: reviewed old records, reviewed results, re-evaluated patient, considered differential, d/w patient, d/w family ED course: The pt was worked up with labs, EKG and CXR. Work-up was unremarkable, with the exception of EKG, which showed a. fib. The chronicity of this was unclear, as pt was asymptomatic with it. She is on ASA, and upon review of her chart, I found the pt has a documented h/o frequent falls. As such, I will defer to the pt's PCP as to whether it is best for the pt to be on anticoagulation or not. She has been mostly rate-controlled in the ED. I d/w family that the process of getting the pt into an HALF-WAY is not going to happen in an expedited fashion from the ED, especially on a Friday afternoon. I have also spoken with the PCP and communicated the same thing. SW did see the pt and family, and encouraged them to continue to work on things from home. The pt will be discharged. We have discussed the need for follow-up and the usual indications for return. Departure - Departure Disposition: 01 Home, Self Care Clinical Impression: Femur fracture, right Qualifiers: Encounter type: subsequent encounter Femur location: distal, unspecified portion Fracture type: closed Fracture morphology: unspecified fracture morphology Fracture healing: with routine healing Qualified Code(s): S72.401D - Unspecified fracture of lower end of right femur, subsequent encounter for closed fracture with routine healing Right patella fracture Qualifiers: Encounter type: subsequent encounter Fracture type: closed Fracture morphology: unspecified fracture morphology Fracture alignment: nondisplaced Fracture healing: with routine healing Qualified Code(s): S82.001D - Unspecified fracture of right patella, subsequent encounter for closed fracture with routine healing Atrial fibrillation Qualifiers: Atrial fibrillation type: unspecified Qualified Code(s): I48.91 - Unspecified atrial fibrillation Condition: Stable Instructions: ED Fx Knee Comments: You have been evaluated by the social media designer today. Please continue to work on services to assist with your care at home. There are no acute or emergent conditions that have turned up on your testing today. Your fractures will take several weeks more to heal, and it will just take time for you to get function back. Please follow-up with orthopedics as planned. Discharge Date/Time: 12/14/21 15:47
[2021-12-14 14:36] LABS: B. PARAPERTUSSIS- RESP PCR PAN NOT DETECTED; B. PERTUSSIS- RESP PCR PANEL NOT DETECTED; C. PNEUMONIAE- RESP PCR PANEL NOT DETECTED; CORONAVIRUS 229E-RESP PCR NOT DETECTED; CORONAVIRUS HKU1-RESP PCR NOT DETECTED; CORONAVIRUS NL63-RESP PCR NOT DETECTED; CORONAVIRUS OC43-RESP PCR NOT DETECTED; HUMAN METAPNEUMOVIRUS NOT DETECTED; INFLUENZA A- RESP PCR PANEL NOT DETECTED; INFLUENZA B - RESP PCR PANEL NOT DETECTED; M. PNEUMONIAE- RESP PCR PANEL NOT DETECTED; PARAINFLUENZA VIRUS 1 NOT DETECTED; PARAINFLUENZA VIRUS 2 NOT DETECTED; PARAINFLUENZA VIRUS 3 NOT DETECTED; PARAINFLUENZA VIRUS 4 NOT DETECTED; RHINOVIRUS/ENTEROVIRUS NOT DETECTED; RSV- RESP PCR PANEL NOT DETECTED; SARS-CoV-2 -RESP PCR PANEL NOT DETECTED
[2021-12-14 15:43] VITALS: BP 145/85
== END 2021-12-14 15:47 | disposition home or self-care (01) ==
LOC: EDUNIT# → ED 11:45
DX: Z74.2 Need for assistance at home and no other household member able to render care (principal); I48.91 Unspecified atrial fibrillation; S72.401D Unspecified fracture of lower end of right femur, subsequent encounter for closed fracture with routine healing; S82.001D Unspecified fracture of right patella, subsequent encounter for closed fracture with routine healing; Z20.822 Contact with and (suspected) exposure to COVID-19
CPT/HCPCS: 36415; 80053; 83690; 85025; 87633; 93005; 99283; 99284

== ENCOUNTER 2021-12-14 15:48 | Outpatient (CLI) | payer MEDICARE, OTHER | END 2021-12-14 15:49 | disposition home or self-care (01) | LOC: EMS 15:48 | PROVIDERS: ATTEND Emergency Medicine | DX: R53.1 Weakness (principal); S72.401D Unspecified fracture of lower end of right femur, subsequent encounter for closed fracture with routine healing; W19.XXXD Unspecified fall, subsequent encounter | CPT/HCPCS: A0425; A0428 ==

== ENCOUNTER 2022-05-13 08:00 | Outpatient (CLI) | payer MEDICARE, OTHER ==
[2022-05-13 16:44] LABS: BILIRUBIN,URINE NEGATIVE (NEGATIVE); GLUCOSE, URINE (UA) NEGATIVE (NEGATIVE); KETONES,URINE (UA) NEGATIVE (NEGATIVE); LEUKOCYTE ESTERASE, URINE SMALL (NEGATIVE); NITRITE,URINE NEGATIVE (NEGATIVE); OCCULT BLOOD,URINE NEGATIVE (NEGATIVE); PROTEIN,URINE NEGATIVE (NEGATIVE); UROBILINOGEN,URINE 0.2 (NORMAL) E.U./dL (NORMAL)
[2022-05-13 16:53] LABS: BACTERIA,URINE Many /HPF (None Seen); CLARITY,URINE SL. CLOUDY (CLEAR); RBC,URINE 0-5 /HPF (0-5); SQUAMOUS EPITHELIAL CELL,UR MOD Squamous (<= Few); WBC,URINE >25 /HPF (0-5)
== END 2022-05-13 23:59 | disposition home or self-care (01) ==
LOC: LAB.WC 08:00
PROVIDERS: ATTEND Obstetrics & Gynecology
DX: R30.0 Dysuria (principal)
CPT/HCPCS: 81001; 87086

== ENCOUNTER 2022-05-28 12:16 | Outpatient (CLI) | payer MEDICARE, OTHER | END 2022-05-28 12:17 | disposition critical access hospital (66) | LOC: EMS 12:16 | DX: R53.83 Other fatigue (principal); R51.9 Headache, unspecified | CPT/HCPCS: A0425; A0429 ==

== ENCOUNTER 2022-05-28 12:18 | Emergency (ER) | payer MEDICARE, OTHER ==
--- NOTE | 2022-05-28 12:27 | ED Physician Documentation ---
History of Present Illness - Stated complaint Stated Complaint: HEAD INJ - History obtained from History obtained from: Patient, EMS - History of Present Illness Pain level max: 3 Pain level now: 0 - Additonal information Additional information: Patient is a 76-year-old female brought in by EMS for a head injury yesterday. She apparently was walking with her walker stumbled and struck her head on the top metal bar of the walker. No loss of consciousness. No vomiting. No mental status changes. She is on Eliquis. She took Tylenol for a headache last night and Tylenol again this morning. Brought in for evaluation of the head injury. Her caregiver states to EMS that she was more tired than usual, but the son told EMS that the patient regularly falls asleep while talking to anybody throughout the day. He states she is at her normal baseline. No known fevers, vomiting or other illnesses. 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 : None HEENT: Chronic hearing loss, Other Psych: Depression, Anxiety Musculoskeletal: Osteoarthritis, Scoliosis, Chronic back pain, Other Derm: None - Past Surgical History Past Surgical History: Yes General: Cholecystectomy HEENT: Cataracts - Present Medications Home Medications: Ambulatory Orders Medication Instructions Recorded Confirmed Levothyroxine Sodium [Synthroid] 200 mcg PO QDAC 07/10/12 12/04/21 Lisinopril 20 mg PO DAILY 07/10/12 12/04/21 Aspirin [Rosalinda] 81 mg PO DAILY 08/24/14 10/31/21 Cholecalciferol (Vitamin D3) 1,000 units PO BID 08/24/14 10/31/21 [Vitamin D] Gabapentin 600 mg PO BID 08/24/14 12/04/21 metFORMIN [Glucophage] 500 mg PO BID 08/24/14 12/04/21 Calcium Carbonate [Calcium] 600 mg PO BID 12/16/14 10/31/21 Insulin Glargine,Hum.rec.anlog 45 unit SUBQ BID 12/16/14 10/31/21 [Lantus] allopurinoL [Allopurinol] 100 mg PO DAILY 07/15/18 12/04/21 Ferrous Sulfate 325 mg PO DAILY 11/09/18 10/31/21 Omeprazole 20 mg PO QDAC 12/02/18 12/04/21 Insulin Regular Human [NovoLIN R] 4 unit SUBQ TIDWM 12/15/18 10/31/21 Metoprolol Succinate [Toprol Xl] 25 mg PO BID 01/07/19 10/31/21 Spironolactone 25 mg PO DAILY 01/07/19 12/04/21 Furosemide [Lasix] 20 mg PO DAILY 04/29/21 10/31/21 Propranolol [Inderal] 10 mg PO TID 04/29/21 12/04/21 Simvastatin [Zocor] 20 mg PO HS 04/29/21 12/04/21 Sertraline HCl 100 mg PO DAILY 12/04/21 12/04/21 Wheelchair 1 unit TD ONCE #1 appful 12/04/21 - Allergies Allergies/Adverse Reactions: Allergies Allergy/AdvReac Type Severity Reaction Status Date / Time No Known Drug Allergies Allergy Verified 05/28/22 12:23 - Social History Does the pt smoke?: No Smoking Status: Former smoker Does the pt drink ETOH?: No Does the pt have substance abuse?: No - Immunizations Immunizations are current?: Yes - POLST Patient has POLST: No POLST Status: Full Code PD ED PE NORMAL - Vitals Vital signs reviewed: Yes - General General: Alert and oriented X 3, No acute distress, Well developed/nourished - HEENT HEENT: Atraumatic, PERRL, EOMI, Moist mucous membranes, Pharynx benign - Neck Neck: Supple, no meningeal sign, No bony TTP - Cardiac Cardiac: RRR, Strong equal pulses - Respiratory Respiratory: No respiratory distress, Clear bilaterally - Abdomen Abdomen: Soft, Non tender, Non distended - Back Back: No CVA TTP, No spinal TTP - Derm Derm: Warm and dry - Extremities Extremities: No edema, No calf tenderness / cord - Neuro Neuro: Alert and oriented X 3, arm maker 2-12 intact, No motor deficit, No sensory deficit, Normal speech Eye Opening: Spontaneous Motor: Obeys Commands Verbal: Oriented GCS Score: 15 - Psych Psych: Normal mood, Normal affect Results - Vitals Vitals: Vital Signs - 24 hr 05/28/22 12:23 Temperature 36.5 C Heart Rate 66 Respiratory 16 Rate Blood Pressure 120/51 L O2 Saturation 99 Oxygen O2 Source Room air - Rads (name of study) Head CT Relevant Findings:: Final report received, See rad report PD Medical Decision Making - ED course Complexity details: reviewed results, re-evaluated patient, considered differential, d/w patient ED course: 76-year-old female status post a head injury on her walker yesterday. She is on Eliquis. Head CT does not show any acute abnormalities. Patient has no other complaints at this time. She feels that she is at her normal baseline. No fevers. No chills. No vomiting. No indication for further testing. Ambulating without difficulty. Patient request to go home at this time. Patient counseled regarding signs and symptoms for which I believe and urgent re-evaluation would be necessary. Patient with good understanding of and ag reement to plan and is comfortable going home at this time This document was made in part using voice recognition software. While efforts are made to proofread this document, sound alike and grammatical errors may occur. Departure - Departure Disposition: 01 Home, Self Care Clinical Impression: Closed head injury Qualifiers: Encounter type: initial encounter Qualified Code(s): S09.90XA - Unspecified injury of head, initial encounter Condition: Good Instructions: ED Head Injury Closed Follow-Up: your,doctor as needed [Other] Comments: Your head CT does not show any acute abnormalities today. Please follow-up with your doctor for further care. Please return if you worsen. Continue your current medications at home. Discharge Date/Time: 05/28/22 14:22
[2022-05-28 12:29] VITALS: BP 120/51
--- NOTE | 2022-05-28 13:10 | CT Report ---
PROCEDURE: HEAD WO INDICATIONS: head vs walker TECHNIQUE: Noncontrast 4.5 mm thick angled axial sections acquired from the foramen magnum to the vertex. For r adiation dose reduction, the following was used: automated exposure control, adjustment of mA and/or kV according to patient size. COMPARISON: CT Head 09/25/18 FINDINGS: Image quality: Excellent. The ventricular system and cortical sulci demonstrate atrophy, consistent for patient's stated age. There are areas of hypodensity in the periventricular and subcortical white matter. There is no acut e intra or extra-axial fluid collection. No acute hemorrhage, mass lesion or midline shift. Brainst em is unremarkable. Globes are symmetrical. Sinuses are aerated. Osseous structures are intact. IMPRESSION: 1. No acute intracranial process. 2. Mild to moderate atrophy and chronic microvascular ischemic changes. Reviewed by: Enma Leyva MD on 05/28/2022 1:09 PM PDT Approved by: Enma Leyva MD on 05/28/2022 1:09 PM PDT Station ID: [id number]
--- OUTSIDE RECORDS SUMMARY | 2022-05-28 13:50 | EXTERNAL MEDICAL SUMMARY RPT | Continuity of Care Document ---
:1945 Author Organization [facility] Address [address] [place] [address] Phone Care Team Providers Name Role Phone Unavailable Unavailable Unavailable Darrick, Provider Unavailable Unavailable Allergies No information. Encounters No information. Functional Status No information. Immunizations No information. Medications No information. Problems date description facility 2022-04-25 00:00 Postmenopausal bleeding All 2022-04-25 00:00 Dysuria All Procedures date description facility 2022-04-25 00:00 Visit Code Hold All 2022-04-25 00:00 Urinalysis with Microscopic Exam, Cultu re in Indicated All Results/Labs No information. Social History date description facility 2022-04-25 00:00 Former smoker All Vital Signs date measurement value units 2022-04-25 00:00 BP_diastolic 60 mmHg 2022-04-25 00:00 BP_systolic 120 mmHg 2022-04-25 00:00 height_metric 160.02 cm 2022-04-25 00:00 height_standard 63 in 2022-04-25 00:00 temperature_metric 36.56 C 2022-04-25 00:00 temperature_standard 97.8 F
== END 2022-05-28 14:22 | disposition home or self-care (01) ==
LOC: EDUNIT# → ED 12:18
DX: S09.90XA Unspecified injury of head, initial encounter (principal); W18.39XA Other fall on same level, initial encounter; Y93.01 Activity, walking, marching and hiking; I10 Essential (primary) hypertension; E78.00 Pure hypercholesterolemia, unspecified; I25.10 Atherosclerotic heart disease of native coronary artery without angina pectoris; I25.2 Old myocardial infarction; J44.9 Chronic obstructive pulmonary disease, unspecified; E03.9 Hypothyroidism, unspecified; E11.42 Type 2 diabetes mellitus with diabetic polyneuropathy; Z79.01 Long term (current) use of anticoagulants; Z79.82 Long term (current) use of aspirin; Z79.899 Other long term (current) drug therapy; Z79.84 Long term (current) use of oral hypoglycemic drugs; Z79.4 Long term (current) use of insulin; Z87.891 Personal history of nicotine dependence
CPT/HCPCS: 99283; 99284

== ENCOUNTER 2022-06-19 15:57 | Outpatient (CLI) | payer MEDICARE, OTHER ==
--- NOTE | 2022-06-19 16:49 | XRAY Report ---
PROCEDURE: Knee 3 View LT INDICATIONS: KNEE PAIN TECHNIQUE: 3 views of the left knee(s) were acquired. COMPARISON: X-ray knee 12-21 FINDINGS: Bones: No fractures or dislocations. No suspicious bony lesions. Moderate to severe tricompartmen paul arthritic change most severe medially and minimally progressive. Soft tissues: Mild knee joint effusion. No suspicious soft tissue calcifications or masses. IMPRESSION: Tricompartmental arthritic change. Reviewed by: Enma Leyva MD on 06/19/2022 4:48 PM PDT Approved by: Enma Leyva MD on 06/19/2022 4:48 PM PDT Station ID: [id number]
== END 2022-06-19 15:58 | disposition home or self-care (01) ==
LOC: DI 15:57
PROVIDERS: ATTEND Internal Medicine
DX: M17.12 Unilateral primary osteoarthritis, left knee (principal)

== ENCOUNTER 2022-06-19 16:00 | Outpatient (CLI) | payer MEDICARE, OTHER ==
--- NOTE | 2022-06-19 16:54 | Ultrasound Report ---
PROCEDURE: Pelvic w/Transvaginal INDICATIONS: POST MENOPAUSAL BLEEDING TECHNIQUE: Real-time scanning was performed of the pelvic organs, with image documentation. Transvaginal visuali zation not performed due to patient preference. COMPARISON: None. FINDINGS: Uterus: Uterus is anteverted and normal in size at 9.6 x 3.2 x 4.9 cm. The myometrium is homogeneou s. The endometrium measures 4 mm in combined thickness. Ovaries: The right ovary measures 2.8 x 0.8 x 2.5 cm, with a calculated ovarian volume of 2.8 cc. T he left ovary measures 2.4 x 1.3 x 2.2 cm, with a calculated ovarian volume of 3.4 cc. The ovaries h ave a normal sonographic appearance. Less than 12 follicles can be seen in each ovary. No adnexal m asses are seen. No cystic lesions measuring greater than 3 cm. Other: No pathologic free abdominal or pelvic fluid. IMPRESSION: Endometrial stripe measures 4 mm, although transvaginal view was not performed, which may underestima te this measurement. Reviewed by: Luis Martin on 06/19/2022 4:52 PM PDT Approved by: Luis Martin on 06/19/2022 4:52 PM PDT Station ID: [id number]
== END 2022-06-19 23:00 | disposition home or self-care (01) ==
LOC: DI 16:00
PROVIDERS: ATTEND Obstetrics & Gynecology
DX: N95.0 Postmenopausal bleeding (principal)

== ENCOUNTER 2022-07-24 12:09 | Outpatient (CLI) | payer MEDICARE, OTHER | END 2022-07-24 23:59 | disposition critical access hospital (66) | LOC: EMS 12:09 | DX: E11.649 Type 2 diabetes mellitus with hypoglycemia without coma (principal); Z79.4 Long term (current) use of insulin | CPT/HCPCS: A0425; A0427 ==

== ENCOUNTER 2022-07-24 12:26 | Emergency (ER) | payer MEDICARE, OTHER ==
--- OUTSIDE RECORDS SUMMARY | 2022-07-24 12:48 | EXTERNAL MEDICAL SUMMARY RPT | Continuity of Care Document ---
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 Role Phone Unavailable Unavailable Unavailable Darrick, Provider Unavailable Unavailable Problems date description facility 2022-04-25 00:00 Postmenopausal bleeding All 2022-04-25 00:00 Dysuria All Procedures date description facility 2022-04-25 00:00 Visit Code Hold All 2022-04-25 00:00 Urinalysis with Microscopic Exa m, Culture in Indicated All Social History date description facility 2022-04-25 00:00 Former smoker All Vital Signs date measurement value units 2022-04-25 00:00 BP_diastolic 60 mmHg 2022-04-25 00:00 BP_systolic 120 mmHg 2022-04-25 00:00 height_metric 160.02 cm 2022-04-25 00:00 height_standard 63 in 2022-04-25 00:00 temperature_metric 36.56 C 2022-04-25 00:00 temperature_standard 97.8 F
[2022-07-24 13:17] LABS: BASOPHILS # (AUTO) 0.1 10^3/uL (0.0-0.1); BASOPHILS % (AUTO) 0.6 %; EOSINOPHILS # (AUTO) 0.1 10^3/uL (0.0-0.7); EOSINOPHILS % (AUTO) 1.1 %; HCT - HEMATOCRIT 33.1 % (37.0-47.0); HGB - HEMOGLOBIN 10.2 g/dL (12.0-16.0); LYMPHOCYTES # (AUTO) 1.6 10^3/uL (1.5-3.5); LYMPHOCYTES % (AUTO) 15.8 %; MEAN CORPUSCULAR HEMOGLOBIN 29.2 pg (27.0-31.0); MEAN CORPUSCULAR HGB CONC 30.8 g/dL (32.0-36.0); MEAN CORPUSCULAR VOLUME 94.8 fL (81.0-99.0); MEAN PLATELET VOLUME 9.8 fL (7.9-10.8); MONOCYTES # (AUTO) 0.6 10^3/uL (0.0-1.0); MONOCYTES % (AUTO) 5.7 %; NEUTROPHILS # (AUTO) 7.5 10^3/uL (1.5-6.6); NEUTROPHILS % (AUTO) 76.5 %; PLT - PLATELET COUNT 214 10^3/uL (130-450); RED BLOOD COUNT 3.49 10^6/uL (4.20-5.40); RED CELL DISTRIBUTION WIDTH 15.1 % (12.0-15.0); WHITE BLOOD COUNT 9.8 x10^3/uL (4.8-10.8)
[2022-07-24 13:31] LABS: ALBUMIN 3.6 g/dL (3.2-5.5); ALBUMIN/GLOBULIN RATIO 0.7 (1.0-2.2); BILIRUBIN,TOTAL 0.7 mg/dL (0.2-1.0); CALCIUM 9.4 mg/dL (8.5-10.3); POTASSIUM 3.8 mmol/L (3.5-5.0); TOTAL PROTEIN 8.6 g/dL (6.7-8.2)
--- NOTE | 2022-07-24 14:25 | ED Physician Documentation ---
History of Present Illness - Stated complaint Stated Complaint: LETHARGIC - Chief complaint Chief Complaint: Neuro - History obtained from History obtained from: Patient, Family, EMS - Additonal information Additional information: Patient is a 76-year-old female who is a insulin-dependent diabetic presenting for evaluation of hypoglycemia. Patient last used insulin last night. She reports that she had forgotten her morning dose of insulin yesterday so took both her morning and evening dose last night of 90 units. She normally takes 50 units in the morning and 40 5 at night. She did not take any insulin this morning. This morning she only had a few crackers which per her daughter is not usual for her in the morning. She was walking to a hair appointment and was inside the building but family members with her noted that she was getting confused and appeared weak. They were able to get her back into the car.However she was too weak to stand so EMS was called. EMS noted that her blood sugar was 25. She was given 1 amp of D50. Her blood glucose improved to 222. Patient takes metformin. She does not take any other oral diabetic medications. She has not had any insulin this morning.Patient denies any recent illness. She denies headache, chest pain, shortness of breath, abdominal pain.Patient is on Eliquis. Review of Systems Constitutional: denies: Fever Cardiac: denies: Chest pain / pressure Respiratory: denies: Dyspnea GI: denies: Abdominal Pain Neurologic: reports: Generalized weakness. denies: Syncope PD PAST MEDICAL HISTORY - Past Medical History Past Medical History: Yes Cardiovascular: Hypertension, High cholesterol, Coronary artery disease, [place], Other Respiratory: COPD, Sleep apnea, CPAP use Neuro: Peripheral neuropathy, Tremors, Other Endocrine/Autoimmune: Type 2 diabetes, HyPOthyroidism GI: GERD [employer]: None : None HEENT: Chronic hearing loss, Other Psych: Depression, Anxiety Musculoskeletal: Osteoarthritis, Scoliosis, Chronic back pain, Other Derm: None - Past Surgical History Past Surgical History: Yes General: Cholecystectomy HEENT: Cataracts - Present Medications Home Medications: Ambulatory Orders Medication Instructions Recorded Confirmed Levothyroxine Sodium [Synthroid] 200 mcg PO QDAC 07/10/12 06/11/22 Aspirin [Rosalinda] 81 mg PO DAILY 08/24/14 06/11/22 Cholecalciferol (Vitamin D3) 1,000 units PO BID 08/24/14 06/11/22 [Vitamin D] Gabapentin 600 mg PO BID 08/24/14 06/11/22 metFORMIN [Glucophage] 500 mg PO BID 08/24/14 06/11/22 Calcium Carbonate [Calcium] 600 mg PO BID 12/16/14 06/11/22 Insulin Glargine,Hum.rec.anlog 45 unit SUBQ BID 12/16/14 06/11/22 [Lantus] Ferrous Sulfate 325 mg PO DAILY 11/09/18 06/11/22 Omeprazole 20 mg PO QDAC 12/02/18 06/11/22 Metoprolol Succinate [Toprol Xl] 25 mg PO BID 01/07/19 06/11/22 Spironolactone 25 mg PO DAILY 01/07/19 06/11/22 Furosemide [Lasix] 20 mg PO DAILY 04/29/21 06/11/22 Propranolol [Inderal] 10 mg PO TID 04/29/21 06/11/22 Simvastatin [Zocor] 20 mg PO HS 04/29/21 06/11/22 Wheelchair 1 unit TD ONCE #1 appful 12/04/21 06/11/22 Potassium Chloride [K-Dur] 20 meq PO DAILY 06/11/22 06/11/22 Sertraline HCl 1 tab PO DAILY 06/11/22 06/11/22 - Allergies Allergies/Adverse Reactions: Allergies Allergy/AdvReac Type Severity Reaction Status Date / Time No Known Drug Allergies Allergy Verified 07/24/22 12:29 - Social History Does the pt smoke?: No Smoking Status: Never smoker Does the pt drink ETOH?: No Does the pt have substance abuse?: No - Immunizations Immunizations are current?: Yes - POLST Patient has POLST: No POLST Status: Full Code PD ED PE NORMAL - General General: Alert and oriented X 3, No acute distress, Well developed/nourished - HEENT HEENT: Atraumatic - Neck Neck: Supple, no meningeal sign - Cardiac Cardiac: RRR, No murmur - Respiratory Respiratory: No respiratory distress, Clear bilaterally - Abdomen Abdomen: Soft, Non tender - Derm Derm: Warm and dry - Neuro Neuro: Alert and oriented X 3, No motor deficit, Normal speech Results - Vitals Vitals: Vital Signs - 24 hr 07/24/22 07/24/22 12:30 14:38 Temperature 36.5 C Heart Rate 69 68 Respiratory 18 20 Rate Blood Pressure 125/96 H 147/70 H O2 Saturation 99 100 Oxygen O2 Source Room air - Labs Labs: Laboratory Tests 07/24/22 07/24/22 07/24/22 13:08 13:11 13:11 WBC 9.8 RBC 3.49 L Hgb 10.2 L Hct 33.1 L MCV 94.8 MCH 29.2 MCHC 30.8 L RDW 15.1 H Plt Count 214 MPV 9.8 Neut # (Auto) 7.5 H Lymph # (Auto) 1.6 Cascade # (Auto) 0.6 Eos # (Auto) 0.1 Baso # (Auto) 0.1 Absolute Nucleated RBC 0.00 Nucleated RBC % 0.0 Sodium 141 Potassium 3.8 Chloride 106 Carbon Dioxide 27 Anion Gap 8.0 BUN 20 Creatinine 1.0 Estimated GFR (MDRD) 54 L Glucose 70 POC Whole Bld Glucose 62 L Calcium 9.4 Total Bilirubin 0.7 AST 18 ALT 12 Alkaline Phosphatase 67 Total Protein 8.6 H Albumin 3.6 Globulin 5.0 H Albumin/Globulin Ratio 0.7 L 07/24/22 07/24/22 14:01 14:58 WBC RBC Hgb Hct MCV MCH MCHC RDW Plt Count MPV Neut # (Auto) Lymph # (Auto) Cascade # (Auto) Eos # (Auto) Baso # (Auto) Absolute Nucleated RBC Nucleated RBC % Sodium Potassium Chloride Carbon Dioxide Anion Gap BUN Creatinine Estimated GFR (MDRD) Glucose POC Whole Bld Glucose 69 L 86 Calcium Total Bilirubin AST ALT Alkaline Phosphatase Total Protein Albumin Globulin Albumin/Globulin Ratio PD Medical Decision Making - ED course Complexity details: reviewed results, re-evaluated patient, d/w patient, d/w family ED course: Pt presenting with weakness and found to be hypoglycemic. Symptoms improved with glucose correction. Pt denies symptoms to suggest ACS, sepsis. No signs of CVA on exam. Pt admits to doubling her dose of insulin last night because she missed her AM dose and also did not eat much this AM. Glucose stable with PO intake and pt ambulatory here. Family here. Aware of importance of continued PO intake today and glucose monitoring. No oral diabetic meds other than metformin. Departure - Departure Disposition: 01 Home, Self Care Clinical Impression: Hypoglycemia, Accidental overdose of insulin Condition: Stable Instructions: ED Diabetes Hypoglycemia Insulin React Comments: Your blood sugar was too low today probably from taking too large of a dose of your insulin yesterday. Please do not double your insulin dose if you miss 1. Please make sure you are eating appropriately throughout the day. For today I would recommend continuing to eat small frequent meals throughout the afternoon and evening. Please make sure you check your blood sugar this evening prior to taking your evening dose of your insulin. If at anytime you have any recurrence of your symptoms or any concerns such as confusion, weakness please call 911 or return to the emergency department. Discharge Date/Time: 07/24/22 15:24
[2022-07-24 14:41] VITALS: BP 147/70
== END 2022-07-24 15:24 | disposition home or self-care (01) ==
LOC: EDUNIT# → ED 12:26
DX: T38.3X1A Poisoning by insulin and oral hypoglycemic [antidiabetic] drugs, accidental (unintentional), initial encounter (principal); E11.649 Type 2 diabetes mellitus with hypoglycemia without coma; Z79.4 Long term (current) use of insulin; I10 Essential (primary) hypertension
CPT/HCPCS: 36415; 80053; 85025; 99283

== ENCOUNTER 2022-09-15 10:39 | Outpatient (CLI) | payer MEDICARE, OTHER | END 2022-09-15 23:59 | disposition critical access hospital (66) | LOC: EMS 10:39 | DX: M54.50 Low back pain, unspecified (principal); R53.1 Weakness; N93.9 Abnormal uterine and vaginal bleeding, unspecified; W18.39XA Other fall on same level, initial encounter; Y92.008 Other place in unspecified non-institutional (private) residence as the place of occurrence of the external cause; Z79.01 Long term (current) use of anticoagulants | CPT/HCPCS: A0425; A0429 ==

== ENCOUNTER 2022-10-03 11:49 | Outpatient (CLI) | payer MEDICARE, OTHER ==
--- NOTE | 2022-10-03 15:51 | XRAY Report ---
PROCEDURE: Knee 3 View RT INDICATIONS: KNEE PAIN RIGHT TECHNIQUE: 3 views of the right knee(s) were acquired. COMPARISON: 12/11/2021. FINDINGS: Bones: Postsurgical changes compatible with ORIF of distal right femur fracture. No fractures or dis locations. No suspicious bony lesions. Moderate right knee tricompartmental osteophytosis. Soft tissues: No knee joint effusion. No suspicious soft tissue calcifications or masses. IMPRESSION: Moderate right knee tricompartmental osteoarthritis. Prior ORIF of distal right femur fracture. Reviewed by: Almaz Daly MD, PhD on 10/03/2022 3:49 PM PDT Approved by: Almaz Daly MD, PhD on 10/03/2022 3:49 PM PDT Station ID: [id number]
== END 2022-10-03 11:50 | disposition home or self-care (01) ==
LOC: DI 11:49
PROVIDERS: ATTEND Internal Medicine
DX: M17.11 Unilateral primary osteoarthritis, right knee (principal); S72.401D Unspecified fracture of lower end of right femur, subsequent encounter for closed fracture with routine healing

== ENCOUNTER 2022-10-16 10:05 | Outpatient (CLI) | payer MEDICARE, OTHER ==
--- NOTE | 2022-10-17 09:41 | Mammography Report ---
BILATERAL DIGITAL SCREENING MAMMOGRAM 3D/2D: 10/16/2022 CLINICAL: Routine screening. Comparison is made to exams dated: 06/25/2018 mammogram, 01/10/2016 mammogram, 12/20/2014 mammogram, a nd 01/11/2013 mammogram - [facility]. Both breasts are almost entirely fatty (category a/<25% glandular tissue). No significant masses, calcifications, or other findings are seen in either breast. There has been no significant interval change. IMPRESSION: NEGATIVE There is no mammographic evidence of malignancy. A 1 year screening mammogram is recommended. Based on the Tyrer Cuzick model (a risk assessment model) the patients lifetime risk is 2.4% and her 10 year risk is 0.0%. According to the ACR, ACS, and NCCN guidelines, an annual breast MRI exam xenia g with mammogram is recommended if the patients lifetime risk is 20% or greater. This exam was interpreted at Station ID: [id number]. NOTE: For mammograms, a report in lay terms will be sent to the patient. Approximately 15% of breast malignancies will not be visualized mammographically. In the management of a palpable breast mass, a negative mammogram must not discourage biopsy of a clinically suspicious lesion. Electronically Signed By: Jose Alfredo gregory/anthony:10/16/2022 20:39:14 letter sent: No_Letter ACR BI-RADS Category 1: Negative 3341F PARENCHYMAL PATTERN: (F) - The breast(s) demonstrate(s) diffuse fatty replacement. BI-RADS CATEGORY: (1) - 1 Mammogram [id number] 1 year screening LATERALITY: (B)
== END 2022-10-16 10:06 | disposition home or self-care (01) ==
LOC: DI 10:05
PROVIDERS: ATTEND Internal Medicine
DX: Z12.31 Encounter for screening mammogram for malignant neoplasm of breast (principal)

== ENCOUNTER 2022-10-16 10:06 | Outpatient (CLI) | payer MEDICARE, OTHER ==
--- NOTE | 2022-10-16 17:22 | DEXA Report ---
PROCEDURE: Dexa Spine and/or Hip INDICATIONS: POST MENOPAUSAL TECHNIQUE: Dual energy x-ray absorptiometry (DXA) was performed on a AppTrigger System. Regions measur ed are the AP Spine, femoral neck, and if needed forearm. COMPARISON: 03/24/2017 FINDINGS: Lumbar Spine: Bone Mineral Density 1.63 g/cm/cm,T score 3.6. Previously 4.2 Left Femoral Neck: Bone Mineral Density 0.87 g/cm/cm, T score -1.2. Previously -1.7 Left Hip: Bone Mineral Density 0.86 g/cm/cm,T score -1.2. Similar to prior Left Forearm: Bone Mineral Density 0.82 g/cm/cm, T score -0.6. Previously 0 (T score greater or equal to -1.0: NORMAL) (T score from -1.1 to -2.4: OSTEOPENIA) (T score less than or equal to -2.5 to: OSTEOPOROSIS) Impression: By WHO criteria, this patient has low bone density (osteopenia). Patients with diagnosis of osteoporosis or osteopenia should have regular bone mineral density assess ment. For those eligible for Medicare, routine testing is allowed once every 2 years. Testing frequ ency can be increased for patients who have rapidly progressing disease or for those who are receivin g medical therapy to restore bone mass. Reviewed by: Terry Horn MD on 10/16/2022 5:20 PM PDT Approved by: Terry Horn MD on 10/16/2022 5:20 PM PDT Station ID: [id number]
== END 2022-10-16 10:07 | disposition home or self-care (01) ==
LOC: DI 10:06
PROVIDERS: ATTEND Internal Medicine
DX: M85.80 Other specified disorders of bone density and structure, unspecified site (principal); Z01.812 Encounter for preprocedural laboratory examination; N95.0 Postmenopausal bleeding; E11.9 Type 2 diabetes mellitus without complications; Z79.4 Long term (current) use of insulin
CPT/HCPCS: 36415; 85025

== ENCOUNTER 2022-10-16 11:22 | Outpatient (CLI) | payer MEDICARE, OTHER ==
[2022-10-16 11:32] LABS: BASOPHILS # (AUTO) 0.1 10^3/uL (0.0-0.1); BASOPHILS % (AUTO) 0.8 %; EOSINOPHILS # (AUTO) 0.1 10^3/uL (0.0-0.7); EOSINOPHILS % (AUTO) 0.9 %; HGB - HEMOGLOBIN 11.2 g/dL (12.0-16.0); LYMPHOCYTES % (AUTO) 22.4 %; MEAN CORPUSCULAR HGB CONC 31.1 g/dL (32.0-36.0); MEAN CORPUSCULAR VOLUME 99.7 fL (81.0-99.0); MEAN PLATELET VOLUME 9.4 fL (7.9-10.8); MONOCYTES # (AUTO) 0.5 10^3/uL (0.0-1.0); MONOCYTES % (AUTO) 5.9 %; NEUTROPHILS # (AUTO) 6.1 10^3/uL (1.5-6.6); NEUTROPHILS % (AUTO) 69.7 %; PLT - PLATELET COUNT 194 10^3/uL (130-450); RED BLOOD COUNT 3.61 10^6/uL (4.20-5.40); RED CELL DISTRIBUTION WIDTH 16.6 % (12.0-15.0); WHITE BLOOD COUNT 8.8 x10^3/uL (4.8-10.8)
== END 2022-10-16 11:23 | disposition home or self-care (01) ==
LOC: LAB 11:22
PROVIDERS: ATTEND Obstetrics & Gynecology
DX: Z01.812 Encounter for preprocedural laboratory examination (principal); N95.0 Postmenopausal bleeding; E11.9 Type 2 diabetes mellitus without complications; Z79.4 Long term (current) use of insulin
CPT/HCPCS: 36415; 85025

== ENCOUNTER 2022-10-22 06:30 | Day surgery (SDC) | payer MEDICARE, OTHER ==
[2022-10-22] MEDS ORDERED: LACTATED RINGERS 1,000 ML IV ONE (06:55)
[2022-10-22] MEDS ORDERED: ONDANSETRON 4 MG/2 ML VIAL IVP PRN (07:24)
[2022-10-22] MEDS ORDERED: ATROPINE ABBOJECT 1 MG/10 ML SYRINGE IVP PRN (07:24)
[2022-10-22] MEDS ORDERED: HYDROmorphone 0.5 MG/0.5 ML SYRINGE IVP PRN (07:24)
[2022-10-22] MEDS ORDERED: ePHEDrine 50 MG/ML VIAL IVP PRN (07:24)
[2022-10-22] MEDS ORDERED: fentaNYL 100 MCG/2 ML VIAL IVP PRN (07:24)
[2022-10-22] MEDS ORDERED: NALOXONE 0.4 MG/ML VIAL IVP PRN (07:24)
--- NOTE | 2022-10-22 07:24 | ANESTHESIA ---
Pre-Anesthesia VS, & Labs - Diagnosis postmenopausal bleeding - Procedure hysteroscopy Vital Signs: Temp Pulse Resp BP Pulse Ox O2 Flow Rate 36.3 C L 63 18 129/53 L 95 0 10/22/22 06:55 10/22/22 06:55 10/22/22 06:55 10/22/22 06:55 10/22/22 06:55 10/22/22 06:55 Height: 5 ft 2 in Weight (kg): 95.71 kg Body Mass Index: 38.5 BMI Classification: Obese - NPO >8 hours - Is Patient ?: No - Lab Results Current Lab Results: Laboratory Tests 10/22/22 07:05: POC Whole Bld Glucose 69 L Lab results reviewed: Yes Home Medications and Allergies Home Medications: Ambulatory Orders allopurinoL [Zyloprim] 100 mg PO DAILY 10/15/22 Levothyroxine Sodium [Synthroid] 200 mcg PO QDAC 07/10/12 Gabapentin 600 mg PO BID 08/24/14 metFORMIN [Glucophage] 500 mg PO BID 08/24/14 Insulin Glargine,Hum.rec.anlog [Lantus] 100 unit SUBQ BID 12/16/14 Ferrous Sulfate 325 mg PO DAILY 11/09/18 Omeprazole 20 mg PO QDAC 12/02/18 Metoprolol Succinate [Toprol Xl] 25 mg PO BID 01/07/19 Furosemide [Lasix] 20 mg PO DAILY 04/29/21 Propranolol [Inderal] 10 mg PO TID 04/29/21 Simvastatin [Zocor] 20 mg PO HS 04/29/21 Sertraline HCl 1 tab PO DAILY 06/11/22 Apixaban [Eliquis] 5 mg PO BID 09/25/22 Potassium Chloride 8 meq PO DAILY 09/25/22 medroxyPROGESTERone [Provera] 2.5 mg PO DAILY 09/25/22 allopurinoL [Zyloprim] 100 mg PO DAILY 10/15/22 Allergies/Adverse Reactions: Allergies Allergy/AdvReac Type Severity Reaction Status Date / Time No Known Drug Allergies Allergy Verified 09/15/22 11:10 Anes History & Medical History - Anesthetic History Anesthesia Complications: reports: Slow wake-up Family history of Anesthesia Complications: Denies Family history of Malignant Hyperthermia: Denies - Medical History Cardiovascular: reports: Congestive heart failure, Hypertension, High cholesterol, Coronary artery disease, [place], Other Pulmonary: reports: Sleep apnea, CPAP use Gastrointestinal: reports: GERD (w/c w meds, no symptoms today) Urinary: reports: None Neuro: reports: Peripheral neuropathy, Tremors, Other Musculoskeletal: reports: Osteoarthritis, Scoliosis, Chronic back pain, Other Endocrine/Autoimmune: reports: Type 2 diabetes, HyPOthyroidism Blood Disorders: reports: Anemia Skin: reports: None Smoking Status: Never smoker - Surgical History General: reports: Cholecystectomy Eyes Ears Nose Throat (EENT): reports: Cataracts Orthopedic: reports: Spine surgery Exam General: Alert, Oriented x3, Cooperative Dental: WNL Mouth Openin Fingerbreadth Neck Mobility: Normal Mallampati classification: III Thyromental Distance: 4-6 cm Respiratory: Lungs clear Cardiovascular: Regular rate Plan Anesthesia Type: General, MAC Consent for Procedure(s) Verified and Reviewed: Yes Code Status: Attempt Resuscitation ASA classification: 3-Severe systemic disease Is this case an emergency?: No
[2022-10-22] MEDS ORDERED: fentaNYL 100 MCG/2 ML VIAL ONE (07:25)
[2022-10-22] MEDS ORDERED: PROPOFOL 500 MG/50 ML 500 MG/50 ML VIAL ONE (07:26)
[2022-10-22] MEDS ORDERED: LIDOCAINE-PF 2% 10 ML AMP SUBQ ONE (07:26)
[2022-10-22] MEDS ORDERED: SILVER NITRATE APPLICATOR TOP ONE (07:31)
[2022-10-22] MEDS ORDERED: BUPIVACAINE 0.25% PF 30 ML VIAL ONE (07:32)
[2022-10-22] MEDS ORDERED: BUPIVACAINE 0.25% PF 30 ML VIAL SUBQ ONE (08:00)
[2022-10-22] MEDS ORDERED: LACTATED RINGERS 1,000 ML IV SCH (08:00)
[2022-10-22] MEDS ORDERED: LIDOCAINE 1%-EPI 1:100000 30 ML MDV SUBQ ONE (08:00)
[2022-10-22] MEDS ORDERED: oxyCODONE 5 MG TABLET PO PRN (08:14)
--- NOTE | 2022-10-22 08:18 | OPERATIVE REPORT ---
Operative Report - General Procedure Date: 10/22/22 Planned Procedure: Hysteroscopy, D&C Pre-Op Diagnosis: Postmenopausal bleeding Procedure Performed: Hysteroscopy, D&C Post Op Diagnosis: Postmenopausal bleeding - Procedure Note Primary Surgeon: Chano Yuan MD Anesthesia Provider: Gera Osuna CRNA Anesthesia Technique: Other (IV general) Pathology: Endometrial curettings IV Fluids (mL): 500 Estimated Blood Loss (mL): 5 Complications: None - Other Other Information/Narrative: Patient was taken to the procedure room and placed in dorsal lithotomy position. Hibiclens was used to clean the operative area. Navajo speculum was palced in the vagina and the cervix was visualized. The anterior lip the cervix was grasped with a single-tooth tenaculum. The cervix was non-stenotic and slightly dilated and allowed the easy passage of dilators. Hysteroscope was then used to hydrodilate using normal saline distention media. Hysteroscope was advanced without difficulty using hydrodistention. Cervical canal was noted to have polypoid tissue. Upon entry into the internal cervical os there was noted to be what appeared to be proliferative endometrium throughout the uterus. Bilateral tubal unable to be seen. Using the MyoSure device, a visualized curetting was performed sampling most parts of the endometrium. Hysteroscope was then removed and a sharp curette was then performed and the contents collected on a Telfa and sent to pathology. Tenaculum was then removed from the cervix noted to be hemostatic. All instruments removed from the vagina Fluid deficit 155.
[2022-10-22] MEDS ORDERED: LACTATED RINGERS 500 ML IV ONE (08:20)
[2022-10-22 08:56] VITALS: BP 129/56; O2SAT 99
--- NOTE | 2022-10-22 11:21 | ANESTHESIA POST OP EVALUATION ---
Anesthesia Post Eval - Post Anesthesia Eval Vitals: Last Vital Signs Temp 36.2 C L 10/22/22 08:45 Pulse 64 10/22/22 08:45 Resp 16 10/22/22 08:45 BP 129/56 L 10/22/22 08:45 Pulse Ox 99 10/22/22 08:45 O2 Flow Rate 0 10/22/22 06:55 CV Function Including HR & BP: Stable Pain Control: Satisfactory Nausea & Vomiting: Negative Mental Status: Baseline Respiratory Status: Airway Patent Hydration Status: Satisfactory Anesthesia Complications: None
== END 2022-10-22 06:31 | disposition home or self-care (01) ==
LOC: SDS 06:30
PROVIDERS: ATTEND Obstetrics & Gynecology
PROC: 0UDB8ZZ Extraction of Endometrium, Via Natural or Artificial Opening Endoscopic (ICD-10-PCS; principal; 2022-10-22 07:30)
DX: N95.0 Postmenopausal bleeding (principal); I11.0 Hypertensive heart disease with heart failure; I50.9 Heart failure, unspecified; E11.9 Type 2 diabetes mellitus without complications; E66.9 Obesity, unspecified; Z68.38 Body mass index [BMI] 38.0-38.9, adult; Z79.01 Long term (current) use of anticoagulants; Z79.4 Long term (current) use of insulin; Z79.84 Long term (current) use of oral hypoglycemic drugs; Z79.899 Other long term (current) drug therapy; Z87.891 Personal history of nicotine dependence
CPT/HCPCS: 58558; 81599; 86850; 86870; 86880; 86900; 86901; J7120

== ENCOUNTER 2023-02-19 08:00 | Outpatient (CLI) | payer MEDICARE, OTHER | END 2023-02-19 23:59 | disposition home or self-care (01) | LOC: LAB.R 08:00 | PROVIDERS: ATTEND Podiatrist | DX: E11.622 Type 2 diabetes mellitus with other skin ulcer (principal) | CPT/HCPCS: 87070; 87077; 87205 ==

== ENCOUNTER 2023-02-20 11:50 | Outpatient (CLI) | payer MEDICARE, OTHER ==
--- NOTE | 2023-02-21 11:54 | XRAY Report ---
PROCEDURE: Foot 3+V RT INDICATIONS: DIABETIC TOE ULCER TECHNIQUE: 3 views of the foot were acquired. COMPARISON: X-ray foot, bilateral, 03/06/2021. FINDINGS: Bones: No fractures or dislocations. No suspicious bony lesions. Degenerative joint disease, most p ronounced at the talonavicular joint. There is osteopenia. Soft tissues: No suspicious soft tissue calcifications or masses. Diffuse soft tissue swelling. IMPRESSION: 1. No bony erosions identified. X-ray is not sensitive to detect early osteomyelitis. If there is hig h clinical suspicion, consider MRI with and without contrast or triple phase bone scan. 2. Severe osteoarthritis. 3. Osteopenia. 4. Marked soft tissue swelling. Reviewed by: Keesha Tariq MD on 02/21/2023 11:53 AM [facility] Approved by: Keesha Tariq MD on 02/21/2023 11:53 AM [facility] Station ID: [id number]
== END 2023-02-20 11:51 | disposition home or self-care (01) ==
LOC: DI 11:50
PROVIDERS: ATTEND Podiatrist
DX: E11.621 Type 2 diabetes mellitus with foot ulcer (principal); L97.519 Non-pressure chronic ulcer of other part of right foot with unspecified severity; M19.071 Primary osteoarthritis, right ankle and foot; M85.871 Other specified disorders of bone density and structure, right ankle and foot; R22.41 Localized swelling, mass and lump, right lower limb

== ENCOUNTER 2023-03-10 08:00 | Outpatient (CLI) | payer MEDICARE, OTHER | END 2023-03-10 23:59 | disposition home or self-care (01) | LOC: LAB.R 08:00 | PROVIDERS: ATTEND Podiatrist | DX: E11.622 Type 2 diabetes mellitus with other skin ulcer (principal) | CPT/HCPCS: 87070; 87077; 87205 ==

== ENCOUNTER 2023-08-08 13:28 | Outpatient (CLI) | payer MEDICARE, OTHER | END 2023-08-08 23:59 | disposition short-term general hospital (02) | LOC: EMS 13:28 | DX: R51.9 Headache, unspecified (principal); M54.50 Low back pain, unspecified; M25.432 Effusion, left wrist; W01.0XXA Fall on same level from slipping, tripping and stumbling without subsequent striking against object, initial encounter; Y92.009 Unspecified place in unspecified non-institutional (private) residence as the place of occurrence of the external cause; Z79.01 Long term (current) use of anticoagulants | CPT/HCPCS: A0425; A0429; A0888 ==

== ENCOUNTER 2023-09-08 08:14 | Outpatient (CLI) | payer MEDICARE, OTHER | END 2023-09-08 23:59 | disposition EMS.NT | LOC: EMS 08:14 | DX: Z03.89 Encounter for observation for other suspected diseases and conditions ruled out (principal) ==

== ENCOUNTER 2023-09-23 07:16 | Outpatient (CLI) | payer MEDICARE, OTHER | END 2023-09-23 23:59 | disposition critical access hospital (66) | LOC: EMS 07:16 | DX: S00.81XA Abrasion of other part of head, initial encounter (principal); W07.XXXA Fall from chair, initial encounter; Y92.008 Other place in unspecified non-institutional (private) residence as the place of occurrence of the external cause; Z79.01 Long term (current) use of anticoagulants | CPT/HCPCS: A0425; A0427 ==

== ENCOUNTER 2023-09-23 07:34 | Emergency (ER) | payer MEDICARE, OTHER ==
--- NOTE | 2023-09-23 07:48 | ED Physician Documentation ---
PD HPI HEAD INJURY - Stated complaint Stated Complaint: FALL - History obtained from History obtained from: Family, EMS - History of Present Illness Mechanism of head injury: Fell (per medics and patient, pt got foot caught in foot support part of recliner getting up and fell forward onto face. No LOC. Is on DOAC for atrial fib.) Where head injury occurred: Home Timing - onset: Today Pain level max: 2 Pain level now: 2 Location of injury: Front (forehead swelling primary injury. Mild skin tears right forearm.) Quality of pain: Throbbing, Dull Associated symptoms: No: LOC, AMS, Nausea / vomiting Contributing factors: Anticoagulated Similar symptoms before: Has not had sx before Review of Systems Neurologic: denies: Confused, Altered mental status, Headache, LOC PD PAST MEDICAL HISTORY - Past Medical History Cardiovascular: Congestive heart failure, Hypertension, High cholesterol, Coronary artery disease, [place], Other Respiratory: Sleep apnea, CPAP use Neuro: Peripheral neuropathy, Tremors, Other Endocrine/Autoimmune: Type 2 diabetes, HyPOthyroidism GI: GERD (w/c w meds, no symptoms today) TECHNICAL REP: None : None HEENT: Chronic hearing loss, Other Psych: Depression, Anxiety Musculoskeletal: Osteoarthritis, Scoliosis, Chronic back pain, Other Derm: None - Past Surgical History Past Surgical History: Yes General: Cholecystectomy HEENT: Cataracts - Present Medications Home Medications: Ambulatory Orders Medication Instructions Recorded Confirmed Levothyroxine Sodium [Synthroid] 200 mcg PO QDAC 07/10/12 09/23/23 Gabapentin 600 mg PO BID 08/24/14 09/23/23 metFORMIN [Glucophage] 500 mg PO BID 08/24/14 09/23/23 Insulin Glargine,Hum.rec.anlog 100 unit SUBQ BID 12/16/14 09/23/23 [Lantus] Omeprazole 20 mg PO QDAC 12/02/18 09/23/23 Metoprolol Succinate [Toprol Xl] 25 mg PO BID 01/07/19 09/23/23 Furosemide [Lasix] 20 mg PO DAILY 04/29/21 09/23/23 Propranolol [Inderal] 10 mg PO TID 04/29/21 09/23/23 Simvastatin [Zocor] 20 mg PO HS 04/29/21 09/23/23 Wheelchair 1 unit TD ONCE #1 appful 12/04/21 09/23/23 Sertraline HCl 1 tab PO DAILY 06/11/22 09/23/23 Apixaban [Eliquis] 5 mg PO BID 09/25/22 09/23/23 medroxyPROGESTERone [Provera] 2.5 mg PO DAILY 09/25/22 09/23/23 allopurinoL [Zyloprim] 100 mg PO DAILY 10/15/22 09/23/23 - Allergies Allergies/Adverse Reactions: Allergies Allergy/AdvReac Type Severity Reaction Status Date / Time No Known Drug Allergies Allergy Verified 09/23/23 07:47 - Social History Does the pt smoke?: No Smoking Status: Never smoker Does the pt drink ETOH?: No Does the pt have substance abuse?: No - Immunizations Immunizations are current?: Yes - POLST Patient has POLST: No POLST Status: Full Code PD ED PE NORMAL - Vitals Vital signs reviewed: Yes - General General: Alert and oriented X 3, No acute distress, Well developed/nourished - HEENT HEENT: PERRL, EOMI, Other (right forehead with focal swelling and tender ) - Neck Neck: Supple, no meningeal sign, No adenopathy. No: C-Spine cleared by NEXUS criteria (no cervical collar on) - Respiratory Respiratory: Clear bilaterally, Other (no chestwall tenderness) - Abdomen Abdomen: Soft, Non tender - Derm Derm: Normal color, Warm and dry - Extremities Extremities: Other (right forearm with superficial skin tears/abrasions. Good ROM and no joint pain. ) - Neuro Neuro: Alert and oriented X 3, No motor deficit, No sensory deficit, Normal speech Results - Vitals Vitals: Oxygen O2 Source Room air - Labs Labs: Laboratory Tests 09/23/23 09/23/23 09/23/23 07:40 07:40 07:40 WBC 10.9 H RBC 3.69 L Hgb 11.7 L Hct 38.4 MCV 104.1 H MCH 31.7 H MCHC 30.5 L RDW 14.4 Plt Count 194 MPV 10.9 H Neut # (Auto) 7.5 H Lymph # (Auto) 2.5 [place] # (Auto) 0.6 Eos # (Auto) 0.1 Baso # (Auto) 0.1 Absolute Nucleated RBC 0.00 Nucleated RBC % 0.0 Sodium 139 Potassium 4.2 Chloride 110 Carbon Dioxide 22 Anion Gap 7.0 BUN 31 H Creatinine 1.5 H Estimated GFR (MDRD) 34 L Glucose 85 Estimat Average Glucose 146 H Hemoglobin A1c % 6.7 H Calcium 9.5 Magnesium 1.8 Total Bilirubin 0.8 AST 17 ALT 10 Alkaline Phosphatase 62 Total Protein 7.8 Albumin 3.6 Globulin 4.2 Albumin/Globulin Ratio 0.9 L Lipase 20 - Rads (name of study) head/orbits CT Relevant Findings:: Prelim report reviewed (no ICH nor fractures. No hematomas in orbital area. Frontal hematoma of sclap ), EMP independent interpretation of test cerical CT Relevant Findings:: Prelim report reviewed (arthritic changes. no fractures. ), EMP independent interpretation of test PD Medical Decision Making - ED course Complexity details: reviewed results, considered differential, d/w patient ED course: The patient states she felt her foot got stuck in the chair mechanism and was underneath her as she tried to get up and she fell forward. She denied any l ightheadedness, headache chest pain or other near syncopal type symptoms prior to the fall. She was aware of of it and tried to catch herself but does not have any injury to the chest wrists or knees. She did strike her face. She is on blood thinner for A-fib chronically. Medics state that they found her awake and alert and conversant. Her blood sugar was low at 41 but she was not acting abnormal in that regard. Did give her some extra dextrose and brought it into the 100s. The patient states she will be low in the morning at times and is not usually aware of feeling badly. She does take Lantus twice daily 60 units each time. Given the found blood sugar low, even though it does not sound like it contributed to her injury, it may still be prudent to suggest decreasing her nighttime Lantus dose. Otherwise being on a blood thinner with a facial contusion and abrasion even though has a normal neuro exam, we will do scans of her head and face. Departure - Departure Disposition: 01 Home, Self Care Clinical Impression: Fall from slip, trip, or stumble, Anticoagulant long-term use, Forehead contusion, Diabetes, Hypoglycemic episode in patient with diabetes mellitus Condition: Stable Record reviewed to determine appropriate education?: Yes Follow-Up: Bruna Coelho MD [Primary Care Provider] - Comments: Your CT scans do not show any bleeding fractures or acute abnormalities of the head facial bones or neck. Obviously of the bruising on the forehead and that we will take a while to go down. You are likely to develop some bruising around the forehead and around the eye subsequently just from gravity. Tylenol if needed for pains. Activity as tolerated. I did talk with the patient about her low blood sugar and she says occasionally happends in AM but typically higher in afternoon.She is on Lantus but not short acting. I told her to decrease evening dose to 50 units from 60, and keep morning dose at current 60 units. To follow up with PCP. Forms: PCP List Discharge Date/Time: 09/23/23 10:45
[2023-09-23 07:56] LABS: BASOPHILS # (AUTO) 0.1 10^3/uL (0.0-0.1); BASOPHILS % (AUTO) 1.1 %; EOSINOPHILS # (AUTO) 0.1 10^3/uL (0.0-0.7); EOSINOPHILS % (AUTO) 1.1 %; HCT - HEMATOCRIT 38.4 % (37.0-47.0); HGB - HEMOGLOBIN 11.7 g/dL (12.0-16.0); LYMPHOCYTES # (AUTO) 2.5 10^3/uL (1.5-3.5); LYMPHOCYTES % (AUTO) 22.9 %; MEAN CORPUSCULAR HEMOGLOBIN 31.7 pg (27.0-31.0); MEAN CORPUSCULAR HGB CONC 30.5 g/dL (32.0-36.0); MEAN CORPUSCULAR VOLUME 104.1 fL (81.0-99.0); MEAN PLATELET VOLUME 10.9 fL (7.9-10.8); MONOCYTES # (AUTO) 0.6 10^3/uL (0.0-1.0); MONOCYTES % (AUTO) 5.5 %; NEUTROPHILS # (AUTO) 7.5 10^3/uL (1.5-6.6); NEUTROPHILS % (AUTO) 68.9 %; PLT - PLATELET COUNT 194 10^3/uL (130-450); RED BLOOD COUNT 3.69 10^6/uL (4.20-5.40); RED CELL DISTRIBUTION WIDTH 14.4 % (12.0-15.0); WHITE BLOOD COUNT 10.9 x10^3/uL (4.8-10.8)
[2023-09-23 08:06] LABS: MAGNESIUM 1.8 mg/dL (1.7-2.3)
[2023-09-23 08:12] LABS: ALBUMIN 3.6 g/dL (3.2-5.5); ALBUMIN/GLOBULIN RATIO 0.9 (1.0-2.2); BILIRUBIN,TOTAL 0.8 mg/dL (0.2-1.0); CALCIUM 9.5 mg/dL (8.5-10.3); CREATININE 1.5 mg/dL (0.6-1.3); POTASSIUM 4.2 mmol/L (3.5-4.5); TOTAL PROTEIN 7.8 g/dL (6.4-8.9)
[2023-09-23] MEDS: ACETAMINOPHEN 500 MG TABLET PO STA (08:15)
--- NOTE | 2023-09-23 08:32 | CT Report ---
PROCEDURE: Head WO INDICATIONS: fall, face injury on DOAC TECHNIQUE: Noncontrast 4.5 mm thick angled axial sections acquired from the foramen magnum to the vertex. For r adiation dose reduction, the following was used: automated exposure control, adjustment of mA and/or kV according to patient size. COMPARISON: None. FINDINGS: Image quality: Excellent. The ventricular system and cortical sulci demonstrate atrophy, consistent for patient's stated age. There are areas of hypodensity in the periventricular and subcortical white matter. There is no acut e intra or extra-axial fluid collection. No acute hemorrhage, mass lesion or midline shift. Brainst em is unremarkable. Globes are symmetrical. Sinuses are aerated. Osseous structures are intact. Right frontal scalp hemat sheila. IMPRESSION: 1. No acute intracranial process. 2. Moderate atrophy and chronic microvascular ischemic changes. 3. Right frontal scalp hematoma. Reviewed by: Enma Leyva MD on 09/23/2023 8:31 AM PDT Approved by: Enma Leyva MD on 09/23/2023 8:31 AM PDT Station ID: [id number]
--- NOTE | 2023-09-23 08:34 | CT Report ---
PROCEDURE: Cervical Spine WO INDICATIONS: fall, face injury TECHNIQUE: Noncontrast 3 mm thick sections acquired from the skull base to the T4 level. Sagittal and coronal r eformats were then constructed. For radiation dose reduction, the following was used: automated exp osure control, adjustment of mA and/or kV according to patient size. COMPARISON: None. FINDINGS: Image quality: Excellent. Bones: No fractures or dislocations. Visualized superior ribs are intact. Multilevel degenerative disc space narrowing. Prominent anterior osteophytes are present most notable at C6-7. Soft tissues: Prevertebral soft tissues are normal in thickness. No paravertebral hematomas. No ap ical pneumothoraces. IMPRESSION: Degenerative changes without visualized fracture. Reviewed by: Enma Leyva MD on 09/23/2023 8:33 AM PDT Approved by: Enma Leyva MD on 09/23/2023 8:33 AM PDT Station ID: [id number]
--- NOTE | 2023-09-23 08:46 | CT Report ---
PROCEDURE: Orbits WO INDICATIONS: fall, periorbital injuries TECHNIQUE: Noncontrast 2.0 mm axial images acquired through the orbits. For radiation dose reduction, the follo wing was used: automated exposure control, adjustment of mA and/or kV according to patient size. COMPARISON: CT head 09/23/2023 FINDINGS: Image quality: Excellent. Orbits: Globes are symmetrical. No metallic foreign bodies. The optic nerves are normal in size. No retrobulbar masses or fat abnormalities. The extra-ocular muscles are normal and symmetrical in a ppearance. Lacrimal glands are normal in size. Optic chiasm is normal. Intracranial: Visualized portions of the cerebral hemispheres, brainstem, and spinal cord are normal . Bones and sinuses: Visualized calvarium and facial bones appear intact. Visualized sinuses and mast oids are clear. Right frontal/periorbital soft tissue edema is present. Mild subcutaneous air is present in the right temporalis subcutaneous fat. IMPRESSION: Right periorbital and facial soft tissue edema. No visualized underlying fracture. Reviewed by: Enma Leyva MD on 09/23/2023 8:45 AM PDT Approved by: Enma Leyva MD on 09/23/2023 8:45 AM PDT Station ID: [id number]
[2023-09-23 08:56] LABS: ESTIMATED AVERAGE GLUCOSE 146 mg/dL (70-100); HEMOGLOBIN A1c% 6.7 % (4.27-6.07)
[2023-09-23 10:06] VITALS: BP 116/64
[2023-09-23 10:38] VITALS: O2SAT 97
== END 2023-09-23 10:45 | disposition home or self-care (01) ==
LOC: EDUNIT# → ED 07:34
DX: S00.83XA Contusion of other part of head, initial encounter (principal); W01.0XXA Fall on same level from slipping, tripping and stumbling without subsequent striking against object, initial encounter; E11.649 Type 2 diabetes mellitus with hypoglycemia without coma; I48.91 Unspecified atrial fibrillation; I11.0 Hypertensive heart disease with heart failure; I50.9 Heart failure, unspecified; E11.42 Type 2 diabetes mellitus with diabetic polyneuropathy; E03.9 Hypothyroidism, unspecified; I10 Essential (primary) hypertension; E78.00 Pure hypercholesterolemia, unspecified; I25.10 Atherosclerotic heart disease of native coronary artery without angina pectoris; I25.2 Old myocardial infarction; Z79.899 Other long term (current) drug therapy; Z79.84 Long term (current) use of oral hypoglycemic drugs; Z79.4 Long term (current) use of insulin; Z79.01 Long term (current) use of anticoagulants
CPT/HCPCS: 36415; 70450; 70480; 72125; 80053; 83036; 83690; 83735; 85025; 99284; A9270

== ENCOUNTER 2023-09-23 12:23 | Outpatient (CLI) | payer MEDICARE, OTHER | END 2023-09-23 23:59 | disposition home or self-care (01) | LOC: EMS 12:23 | PROVIDERS: ATTEND Emergency Medicine | DX: S09.93XA Unspecified injury of face, initial encounter (principal); W07.XXXA Fall from chair, initial encounter | CPT/HCPCS: A0425; A0428 ==

== ENCOUNTER 2023-10-14 15:29 | Outpatient (CLI) | payer MEDICARE, OTHER | END 2023-10-14 15:30 | disposition EMS.NT | LOC: EMS 15:29 | DX: E11.649 Type 2 diabetes mellitus with hypoglycemia without coma (principal); Z79.84 Long term (current) use of oral hypoglycemic drugs ==

== ENCOUNTER 2023-10-24 17:39 | Outpatient (CLI) | payer MEDICARE, OTHER | END 2023-10-24 19:40 | disposition critical access hospital (66) | LOC: EMS 17:39 | DX: S99.921A Unspecified injury of right foot, initial encounter (principal); W01.0XXA Fall on same level from slipping, tripping and stumbling without subsequent striking against object, initial encounter; Y92.002 Bathroom of unspecified non-institutional (private) residence as the place of occurrence of the external cause; L97.419 Non-pressure chronic ulcer of right heel and midfoot with unspecified severity; R26.81 Unsteadiness on feet; R53.1 Weakness; R58 Hemorrhage, not elsewhere classified; R29.6 Repeated falls | CPT/HCPCS: A0425; A0429 ==

== ENCOUNTER 2023-10-24 18:04 | Emergency (ER) | payer MEDICARE, OTHER ==
--- NOTE | 2023-10-24 18:38 | ED Physician Documentation ---
PD HPI LOWER EXT INJURY - Stated complaint Stated Complaint: TOE PAIN - Chief complaint Chief Complaint: Trauma Ext - Additional information Additional information: 77-year-old female with history of CHF, hypertension, hypercholesterolemia, c oronary artery disease, peripheral neuropathy anticoagulated on Eliquis presents emergency department for right toe pain. Patient is brought in via EMS she says that she tripped and fell kicking her toes onto the edge of her bath she called 911 because there was bleeding and she was worried about possible fracture versus dislocation patient reports that she is in a significant amount of pain to her right toes and foot. Patient said in 2021 she broke her right femur requiring surgical repair she is having right knee pain as well as right tib-fib pain with obvious swelling and hematoma. Patient says that she is unable to ambulate her helping her get to the bathroom and was pushing her back unfortunately there is water on the ground pressure too hard and she fell onto both knees kicking her toe into the bathtub she caught herself with her arms did not hit her head no loss of consciousness. PD PAST MEDICAL HISTORY - Past Medical History Cardiovascular: Congestive heart failure, Hypertension, High cholesterol, Coronary artery disease, HI, Other Respiratory: Sleep apnea, CPAP use Neuro: Peripheral neuropathy, Tremors, Other Endocrine/Autoimmune: Type 2 diabetes, HyPOthyroidism GI: GERD [employer]ICIAN G: None : None HEENT: Chronic hearing loss, Other Psych: Depression, Anxiety Musculoskeletal: Osteoarthritis, Scoliosis, Chronic back pain, Other Derm: None - Past Surgical History Past Surgical History: Yes General: Cholecystectomy HEENT: Cataracts - Present Medications Home Medications: Ambulatory Orders Medication Instructions Recorded Confirmed Levothyroxine Sodium [Synthroid] 200 mcg PO QDAC 07/10/12 09/23/23 Gabapentin 600 mg PO BID 08/24/14 09/23/23 metFORMIN [Glucophage] 500 mg PO BID 08/24/14 09/23/23 Insulin Glargine,Hum.rec.anlog 100 unit SUBQ BID 12/16/14 09/23/23 [Lantus] Omeprazole 20 mg PO QDAC 12/02/18 09/23/23 Metoprolol Succinate [Toprol Xl] 25 mg PO BID 01/07/19 09/23/23 Furosemide [Lasix] 20 mg PO DAILY 04/29/21 09/23/23 Propranolol [Inderal] 10 mg PO TID 04/29/21 09/23/23 Simvastatin [Zocor] 20 mg PO HS 04/29/21 09/23/23 Wheelchair 1 unit TD ONCE #1 appful 12/04/21 09/23/23 Sertraline HCl 1 tab PO DAILY 06/11/22 09/23/23 Apixaban [Eliquis] 5 mg PO BID 09/25/22 09/23/23 medroxyPROGESTERone [Provera] 2.5 mg PO DAILY 09/25/22 09/23/23 allopurinoL [Zyloprim] 100 mg PO DAILY 10/15/22 09/23/23 - Allergies Allergies/Adverse Reactions: Allergies Allergy/AdvReac Type Severity Reaction Status Date / Time No Known Drug Allergies Allergy Verified 10/24/23 18:12 - Social History Does the pt smoke?: No Smoking Status: Never smoker Does the pt drink ETOH?: No Does the pt have substance abuse?: No - Immunizations Immunizations are current?: Yes - POLST Patient has POLST: No POLST Status: Full Code PD ED PE NORMAL - Vitals Vital signs reviewed: Yes - General General: Alert and oriented X 3, No acute distress, Well developed/nourished - HEENT HEENT: Atraumatic, PERRL - Neck Neck: C-Spine cleared by NEXUS criteria - Cardiac Cardiac: RRR - Respiratory Respiratory: No respiratory distress, Clear bilaterally - Abdomen Abdomen: Normal bowel sounds, Soft, Non tender - Derm Derm: Other (2 cm laceration to sole of 3rd toe, 2cm laceration to sole of fourth toe) - Extremities Extremities: Other (Right lower extremity: Swelling and hematoma to proximal tib-fib unable to flex or extend knee without tenderness or pain. Bleeding to right foot especially to third and fourth toe to the sole of third and fourth toe.Able to wiggle all toes. Strong dorsalis pedis pulse.) Results - Vitals Vitals: Vital Signs - 24 hr 10/24/23 10/24/23 18:13 20:33 Temperature 36.2 C L Heart Rate 66 60 Respiratory 14 Rate Blood Pressure 119/59 L 106/65 O2 Saturation 100 99 Oxygen O2 Source Room air - Labs Labs: Laboratory Tests 10/24/23 22:50 WBC 10.5 RBC 3.71 L Hgb 11.5 L Hct 38.0 MCV 102.4 H MCH 31.0 MCHC 30.3 L RDW 14.6 Plt Count 174 MPV 10.9 H Neut # (Auto) 7.9 H Lymph # (Auto) 1.8 Leslie # (Auto) 0.6 Eos # (Auto) 0.2 Baso # (Auto) 0.1 Absolute Nucleated RBC 0.00 Nucleated RBC % 0.0 - Rads (name of study) Right foot x-rays Relevant Findings:: Final report received, EMP independent interpretation of test, Other (No acute bony abnormalities or findings chronic hammertoe) Right knee x-rays Relevant Findings:: Final report received, EMP independent interpretation of test, Other (Fracture of the proximal tibia-fibula intact distal appearing hardware of the femur) Right lower leg x-rays Relevant Findings:: Final report received, EMP independent interpretation of test, Other (Fractures of the proximal tibia and femur neck) Procedures - Laceration (location) right 3rd toe Length in cm: 2 (right 3rd toe to sole of toe at the base) Wound type: Linear Neurovascular status: Other (chronic neuropathy) Tendon involvement: Tendon intact Anesthesia: LET Wound preparation: Irrigated copiously NS, Wound explored, To the base Skin layer closure: Nylon, Interrupted, Size #-0 - enter number (5-0), Sutures - enter # (3) Other: Patient tolerated well, No complications, Neurovascular intact, Dressing applied, Tetanus UTD right 4th toe Length in cm: 2 Wound type: Linear, Clean Neurovascular status: Other (Chronic neuropathy) Tendon involvement: Tendon intact Anesthesia: LET Wound preparation: Irrigated copiously NS, Wound explored, To the base Skin layer closure: Nylon, Interrupted, Size #-0 - enter number (5-0), Sutures - enter # (3) Other: Patient tolerated well, No complications, Neurovascular intact, Dressing applied, Tetanus UTD PD Medical Decision Making - ED course ED course: 77-year-old female brought into the emergency department via EMS for complaints of right toe pain. Patient says that she heard a loud popping noise and she has pain at the third and fourth toe. There is bleeding at the base of both toes and upon further examination at the sole of third and fourth toe right at the joint there is what appears to be laceration due to hyperflexing of the toe. Third and fourth toe laceration measured about 2 cm and 3 sutures were applied to each I was unable to visualize any bone or tendon and is unable to palpate any bone with my tools. Because of patient's poorly controlled type 2 diabetes her severe neuropathy in her obesity I went ahead and covered her with Ancef. X-rays are complete for further evaluation and x-rays of the right foot did not show any acute bony abnormal findings. She does have hammertoe deformities. X- rays of the right knee were also complete shows intact hardware of the right femur and proximal tibia fibula fractures. This is also seen on x-rays of the right lower leg. I spoke with [facility] transfer center and patient is an auto excepted. We will work on transferring patient via ambulance to [facility] emergency department for ER to ER transfer where they have Ortho because unfortunately we do not have Ortho here in house. I gave report to ER physician Dr. Hagan. Because of concerns of patient's safety at home and multitude of falls patient's family has not checked in on her at all we will be making an APS report patient also reports that she has pressure ulcer to buttocks. I do spoke with patient's daughter Michel via phone who had a very different story than the patient Michel reports that her son was actually helping her get to the toilet he was lifting her up which is not physically possible given rey ent's size and weight and as he was according to the patient's daughter Michel lifting her patient's right knee buckled. She has an obvious contusion on the right shelton that appears very similar to an injury of her hitting her knee on something like the edge of a bathtub. Patient's daughter Michel also reports that the lacerations on the bottom of her third and fourth toe are due to her cutting it on something. The patient says that she hit her toe on the bathtub hyperextending the toes which would make more sense given how the injury and the lacerations of her toes appear right at the base of both toes from a hyperextension injury. APS report was filed APS number [id number] Departure - Departure Forms: PCP List
[2023-10-24] MEDS: LIDOCAINE-EPINEPH-TETRACAINE 3 ML SYRINGE TOP STA (19:25)
[2023-10-24] MEDS: HYDROmorphone 0.5 MG/0.5 ML SYRINGE IVP STA (19:25)
--- NOTE | 2023-10-24 20:28 | XRAY Report ---
PROCEDURE: Foot 3+V RT INDICATIONS: right 3,4 toe deformity with laceration TECHNIQUE: 3 views of the foot were acquired. COMPARISON: None. FINDINGS: Bones: No fractures or dislocations. No suspicious bony lesions. Diffuse osteopenia. Multiple hete rotopic deformities. Soft tissues: No tibiotalar joint effusion. Achilles tendon appears normal. IMPRESSION: Hammertoe deformities, without displaced fracture. Reviewed by: Luis Martin MD on 10/24/2023 8:27 PM PDT Approved by: Luis Martin MD on 10/24/2023 8:27 PM PDT Station ID: [id number]
--- NOTE | 2023-10-24 22:26 | XRAY Report ---
PROCEDURE: Tib/Fib RT INDICATIONS: right LE swelling, GLF TECHNIQUE: 2 views of the tibia and fibula were acquired. COMPARISON: 10/03/2022. Correlation is made with the accompanying imaging. FINDINGS: Bones: There is a moderately displaced fracture involving the proximal tibia. There is a mildly disp laced fracture involving the fibular neck. There is partial visualization of distal femur hardware. Generalized degenerative changes are seen. Soft tissues: No suspicious soft tissue calcifications or masses. IMPRESSION: Fractures of the proximal tibia and the fibular neck. Reviewed by: Tapan Woodard MD on 10/24/2023 9:25 PM [facility] Approved by: Tapan Woodard MD on 10/24/2023 9:25 PM [facility] Station ID: [id number]
--- NOTE | 2023-10-24 22:27 | XRAY Report ---
PROCEDURE: Knee 4+V RT INDICATIONS: hematoma, bruising, GLF TECHNIQUE: 4 views of the knee(s) were acquired. COMPARISON: None. FINDINGS: Bones: There is a moderately displaced fracture of the proximal tibia and there is a mildly displace d fracture of the fibular neck. Distal femur hardware is seen, without findings of failure or loosening. Generalized degenerative changes are seen. Soft tissues: No significant knee joint effusion. No suspicious soft tissue calcifications or masses . IMPRESSION: Fractures of the proximal tibia and proximal fibula can be seen. Intact appearing distal femur hardware. Reviewed by: Tapan Woodard MD on 10/24/2023 9:26 PM [facility] Approved by: Tapan Woodard MD on 10/24/2023 9:26 PM [facility] Station ID: [id number]
[2023-10-24] MEDS ORDERED: ceFAZolin 2 GM VIAL ONE (22:43)
[2023-10-24] MEDS: BACITRACIN ZINC OINT 1 PACKET TOP STA (22:45)
[2023-10-24] MEDS: ceFAZolin (2G) 2 GM in SODIUM CHLORIDE 0.9% 100ML 100 ML IV STA (22:46)
[2023-10-24 22:57] LABS: BASOPHILS # (AUTO) 0.1 10^3/uL (0.0-0.1); BASOPHILS % (AUTO) 0.8 %; EOSINOPHILS # (AUTO) 0.2 10^3/uL (0.0-0.7); EOSINOPHILS % (AUTO) 1.9 %; HGB - HEMOGLOBIN 11.5 g/dL (12.0-16.0); LYMPHOCYTES # (AUTO) 1.8 10^3/uL (1.5-3.5); LYMPHOCYTES % (AUTO) 16.7 %; MEAN CORPUSCULAR HGB CONC 30.3 g/dL (32.0-36.0); MEAN CORPUSCULAR VOLUME 102.4 fL (81.0-99.0); MEAN PLATELET VOLUME 10.9 fL (7.9-10.8); MONOCYTES # (AUTO) 0.6 10^3/uL (0.0-1.0); MONOCYTES % (AUTO) 5.8 %; NEUTROPHILS # (AUTO) 7.9 10^3/uL (1.5-6.6); NEUTROPHILS % (AUTO) 74.5 %; PLT - PLATELET COUNT 174 10^3/uL (130-450); RED BLOOD COUNT 3.71 10^6/uL (4.20-5.40); RED CELL DISTRIBUTION WIDTH 14.6 % (12.0-15.0); WHITE BLOOD COUNT 10.5 x10^3/uL (4.8-10.8)
[2023-10-24 23:04] LABS: INR 2.1 (0.8-1.2); PT - PROTHROMBIN TIME 21.8 secs (9.9-12.6)
[2023-10-24 23:05] LABS: MAGNESIUM 1.6 mg/dL (1.7-2.3)
[2023-10-24 23:12] LABS: ALBUMIN 3.4 g/dL (3.2-5.5); ALBUMIN/GLOBULIN RATIO 0.8 (1.0-2.2); BILIRUBIN,TOTAL 0.7 mg/dL (0.2-1.0); CALCIUM 9.2 mg/dL (8.5-10.3); CREATININE 1.5 mg/dL (0.6-1.3); POTASSIUM 3.9 mmol/L (3.5-4.5); TOTAL PROTEIN 7.6 g/dL (6.4-8.9)
[2023-10-25] MEDS: DEXTROSE 50% ABBOJECT 25 GM/50 ML SYRINGE IVP STA
--- NOTE | 2023-10-25 01:03 | ED Physician Documentation ---
ED Addendum - Addendum Addendum: 10/25/23 01:02 Note I am adding this note solely to address hypoglycemia that was brought to my attention. RN told me patient was hypoglycemic to 50s in setting of using insulin, not eating as much recently; I ordered D50 and requested repeat POCT glucose after this. Patient without evidence of symptomatic hypoglycemia and stable, here for traumatic injury with transfer planned. 10/25/23 01:14 POCT glucose following treatment: improved to 140s. Patient appears comfortable and is transferring out of ER now with EMS at roughly 0115. 10/25/23 01:15
[2023-10-25 01:05] VITALS: BP 118/58; O2SAT 100
== END 2023-10-25 01:10 | disposition short-term general hospital (02) ==
LOC: EDBD → EDUNIT# → ED 18:04
DX: S91.114A Laceration without foreign body of right lesser toe(s) without damage to nail, initial encounter (principal); S82.101A Unspecified fracture of upper end of right tibia, initial encounter for closed fracture; S82.831A Other fracture of upper and lower end of right fibula, initial encounter for closed fracture; S80.11XA Contusion of right lower leg, initial encounter; W01.198A Fall on same level from slipping, tripping and stumbling with subsequent striking against other object, initial encounter; Y92.002 Bathroom of unspecified non-institutional (private) residence as the place of occurrence of the external cause; E11.649 Type 2 diabetes mellitus with hypoglycemia without coma; E11.40 Type 2 diabetes mellitus with diabetic neuropathy, unspecified; E66.9 Obesity, unspecified; Z68.41 Body mass index [BMI] 40.0-44.9, adult; Z79.4 Long term (current) use of insulin; Z74.01 Bed confinement status
CPT/HCPCS: 12001; 36415; 73564; 73590; 73630; 80053; 83690; 83735; 85025; 85610; 96365; 96375; 99285; J1170